=== PATIENT | female | born 1945 | race Caucasian/White ===

== ENCOUNTER 2017-06-07 11:46 | Inpatient (IN) | payer MEDICARE, MEDICAID ==
[2017-06-07 12:13] LABS: PTT 29.5 SEC (22.9-36.1); Prothrombin Time 13.5 SEC (12.0-14.7)
[2017-06-07 12:29] LABS: ALT (SGPT) Less than 7 U/L (8-55); AST (SGOT) 27 U/L (5-34); Albumin 4.1 g/dL (3.4-4.8); Alkaline Phosphatase 69 U/L (40-150); Anion Gap 16 mmol/L (10-20); BUN (Urea Nitrogen) 20 mg/dL (9.8-20.1); Bilirubin, Total 0.8 mg/dL (0.2-1.2); CK (CPK) 134 U/L (29-168); Calc. Creatinine Clearance 0 mL/min (70-130); Calcium 9.7 mg/dL (7.8-10.44); Carbon Dioxide 24 mmol/L (23-31); Chloride 103 mmol/L (98-107); Estimated GFR-MDRD 37; Globulin 3.2 g/dL (2.4-3.5); Glucose 120 mg/dL (83-110); Potassium 4.1 mmol/L (3.5-5.1); Protein, Total 7.3 g/dL (6.0-8.3); Sodium 139 mmol/L (136-145)
[2017-06-07 12:32] LABS: CKMB 3.3 ng/mL (0-6.6)
[2017-06-07 12:44] LABS: Troponin I 3.701 ng/mL (< 0.028)
[2017-06-07 12:59] LABS: #Lymphocytes 1.9 thou/uL (1.20-3.40); #Monocytes 0.4 thou/uL (0.11-0.59); #Neutrophils 3.9 thou/uL (1.40-6.50); %Basophils 0.6 % (0.0-1.0); %Eosinophils 0.4 % (0.0-10.0); %Lymphocytes 29.7 % (21.0-51.0); %Monocytes 6.8 % (0.0-10.0); %Neutrophils 62.6 % (42.0-75.0); Hemoglobin 14.1 g/dL (12.0-16.0); Mean Corpuscular HGB CONC 31.4 g/dL (32.0-36.0); Mean Corpuscular Hemoglobin 28.2 pg (27.0-31.0); Mean Corpuscular Volume 90.1 fl (81.0-99.0); Mean Platelet Volume 9.4 fL (7.4-10.4); Platelet Count 197 thou/uL (130-400); RBC Distribution Width 12.7 % (11.5-14.5); Red Blood Cell (RBC) Count 4.99 mill/uL (4.20-5.40); White Blood Cell (WBC) Count 6.3 thou/uL (4.8-10.8)
[2017-06-07] MEDS ORDERED: hydrALAZINE 20 MG/ML VIAL ONE (13:30)
--- NOTE | 2017-06-07 14:26 | CT ---
CT OF THE BRAIN WITHOUT CONTRAST: COMPARISON: 05/10/16. HISTORY: Diffuse headache for 3 days and altered mental status. TECHNIQUE: Multiple contiguous axial images were obtained in a CT of the brain without contrast. Coronal reform ats were performed. FINDINGS: There are scattered hypodensities in the subcortical and periventricular white matter. There is an a hernan demonstrating loss of wyman-white matter differentiation in the posterior right frontal lobe. Thi s is in the MCA distribution and likely represents an evolving infarction in the right MCA distributi on. There is no evidence of hydrocephalus, intracranial hemorrhage, or extraaxial fluid collection. The calvarium and overlying soft tissues were unremarkable. There is fluid in the left maxillary sin us. The mastoid air cells are well aerated. IMPRESSION: Subacute evolving infarction in the right middle cerebral artery distribution. This was not seen on the prior CT and likely has occurred in the interim. POS: [facility]
--- NOTE | 2017-06-07 14:34 | RAD ---
CHEST 2 VIEWS: HISTORY: Cough. COMPARISON: 05/22/16. FINDINGS: Cardiac silhouette and pulmonary vasculature are unremarkable. Mediastinum is midline with aortic ca lcification. There is no lobar consolidation, pneumothorax, or pleural fluid evident. Degenerative changes involving the shoulders and thoracic spine. IMPRESSION: 1. Atherosclerosis. 2. No active cardiopulmonary abnormalities are otherwise demonstrated. POS: [facility]
[2017-06-07] MEDS ORDERED: Aspirin 325 MG TAB ONE (14:49)
[2017-06-07] MEDS ORDERED: Ondansetron HCl/PF 4 MG/2 ML Vial IVP PRN (16:08)
[2017-06-07 16:13] LABS: Critical Call Chem Troponin I RESULT DECREASING; Troponin I 3.368 ng/mL (< 0.028)
[2017-06-07] MEDS ORDERED: Insulin Regular 300 UNITS/3 ML VIAL SC PRN (16:35)
[2017-06-07] MEDS ORDERED: Dextrose 50% Abboject 50 ML SYRINGE SLOW IVP PRN (16:35)
[2017-06-07] MEDS ORDERED: Dextrose 5% in Water 1,000 ML IV PRN (16:35)
[2017-06-07] MEDS ORDERED: traMADol HCl 50 MG TAB PO PRN (16:37)
[2017-06-07] MEDS ORDERED: Acetaminophen 325 MG TAB PO PRN (16:37)
[2017-06-07] MEDS ORDERED: Ondansetron HCl/PF 4 MG/2 ML Vial ONE (16:38)
[2017-06-07 18:03] VITALS: BMI 28.5
[2017-06-07] MEDS ORDERED: Acetaminophen 650 MG Suppository PR PRN (18:17)
--- NOTE | 2017-06-07 18:23 | PDOC.EVN ---
Event Note - Event Note Event Note: Please see original H&P Since then, a "code green" has been called aka rapid response in ER due to patient slurred speech and progressive weakness of L side. Also, patient with temp 101.3, SBP >185 R MCA known on admission repeat CT head stat for concern of conversion neuro checks Q1H x3 labetalol for hypertension given cardiac hx of CHF sepsis initiate sepsis protocol could also be febrile from stroke check blood cx, urine cx, CXR, lactic acid d/w patient's bedside nursing staff
--- NOTE | 2017-06-07 18:41 | CT ---
CT HEAD WITHOUT CONTRAST 06/07/17 Multiple axial tomograms are obtained through the head without IV enhancement. HISTORY: Stroke. Comparison made to the exam today at 1:11 p.m. There is cytotoxic edema in the right cerebral hemisphere involving the right posterior frontal and a nterior parietal lobe cortex and extending into the right frontal cortex in the parasylvian region. F indings indicate a large right MCA territory infarct which is evolving. There is no evidence of hemor rhage. Severe chronic ischemic white matter changes seen with old lacunar infarcts in the right basal gangli a. These findings were present on the exam of 05/10/16. There has been no significant change since the exam earlier today at 1:11 p.m. IMPRESSION: Large evolving right middle cerebral artery distribution infarct without significant change from the exam earlier today. No evidence of hemorrhage. Findings discussed with Dr. Zhao. POS: [facility]
[2017-06-07 18:44] LABS: Critical Call Chem Troponin I RESULT DECREASING; Troponin I 3.037 ng/mL (< 0.028)
--- NOTE | 2017-06-07 18:53 | RAD ---
PORTABLE CHEST: 06/07/17 HISTORY: Sepsis. Mental status change. COMPARISON: 06/07/17. FINDINGS/IMPRESSION: The lungs remain clear. No evidence of infiltrate. No significant change from the two view exam taken at 2:18 p.m. earlier today. POS: [facility]
[2017-06-07 20:05] LABS: #Lymphocytes 1.5 thou/uL (1.20-3.40); #Monocytes 0.6 thou/uL (0.11-0.59); #Neutrophils 5.9 thou/uL (1.40-6.50); %Basophils 0.4 % (0.0-1.0); %Eosinophils 0.4 % (0.0-10.0); %Lymphocytes 18.6 % (21.0-51.0); %Monocytes 7.3 % (0.0-10.0); %Neutrophils 73.2 % (42.0-75.0); Hemoglobin 14.1 g/dL (12.0-16.0); Mean Corpuscular Hemoglobin 28.8 pg (27.0-31.0); Mean Platelet Volume 10.9 fL (7.4-10.4); Platelet Count 167 thou/uL (130-400); RBC Distribution Width 12.6 % (11.5-14.5); Red Blood Cell (RBC) Count 4.88 mill/uL (4.20-5.40); White Blood Cell (WBC) Count 8.1 thou/uL (4.8-10.8)
[2017-06-07 20:17] LABS: ALT (SGPT) Less than 7 U/L (8-55); AST (SGOT) 24 U/L (5-34); Albumin 3.9 g/dL (3.4-4.8); Alkaline Phosphatase 67 U/L (40-150); Anion Gap 17 mmol/L (10-20); BUN (Urea Nitrogen) 19 mg/dL (9.8-20.1); Bilirubin, Total 0.7 mg/dL (0.2-1.2); Calc. Creatinine Clearance 53 mL/min (70-130); Calcium 9.4 mg/dL (7.8-10.44); Carbon Dioxide 23 mmol/L (23-31); Chloride 104 mmol/L (98-107); Estimated GFR-MDRD 44; Glucose 89 mg/dL (83-110); Potassium 3.6 mmol/L (3.5-5.1); Protein, Total 6.9 g/dL (6.0-8.3); Sodium 140 mmol/L (136-145)
[2017-06-07 20:22] LABS: CKMB 2.8 ng/mL (0-6.6)
--- NOTE | 2017-06-07 20:24 | HP ---
PRIMARY CARE PROVIDER: Currently unknown. Patient does have an outpatient primary care provider, nima t is unable to provide the name of that individual at this point in time CHIEF COMPLAINT: Slurred speech with left-sided weakness. HISTORY OF PRESENT ILLNESS: A 71-year-old female with a history of carotid endarterectomy, CHF, card iovascular disease, TIA, active tobacco use, who presented with approximately 2 days of left-sided fa cial droop, slurred speech, accompanied by left-sided weakness. It is unclear whether or not she is having some word recalling difficulty as her responses are very much slowed and occasionally she does not respond to directed questions. At this point in time, she does not have any family members with her at bedside. Last known seen well as documented by the emergency department as 2 days prior to a dmission, so it is assumed that her stroke may have had that long of duration but unable to confirm. REVIEW OF SYSTEMS: As per above limited ability for recall, but what the patient is able to answer i ncludes the following: General: Denies any fevers or chills. Gastrointestinal: Denies any difficulty with nausea, vomitin g or diarrhea. Genitourinary: Denies any dysuria, change in urinary frequency, quantity or quality. Respiratory: Denies any upper respiratory type infectious type symptoms, endorses a longstanding c ough which she states has been ongoing for several years and she suspects this is related to her smok ing use. Cardiovascular: Denies any chest pain, chest pressure, left-sided arm numbness or tingling . HEENT: Slurred speech as above, question of word finding difficulty, endorses having a headache a t this point in time, states that she has a significant "rug burn" on her nose due to falling several days ago when trying to move a heavy table. Musculoskeletal: Endorses left-sided weakness as per H PI above. PAST MEDICAL HISTORY: What the patient is able to recall includes the following, 1. History of CHF. 2. Insulin-dependent diabetes. 3. Hypertension. 4. Hyperlipidemia. 5. TIA. PAST SURGICAL HISTORY: 1. Status post cardiac catheterization, unknown result. 2. Status post hysterectomy. 3. Status post carotid endarterectomy. HOME MEDICATIONS: Please see the EMR for a full list. The patient is unable to recall her medicatio ns for memory, but denies any recent changes in the last month to this list. The patient denies any over the counter, supplements, herbal additives to her medication regimen. FAMILY HISTORY: Significant for both stroke and cardiovascular disease in her mother. The patient d enies any other known family members with either stroke or cardiovascular disease. SOCIAL HISTORY: The patient states that she wishes to quit and states that she will be quitting smok ing as of today. Otherwise, the patient has been smoking approximately half a pack a day to a pack a day for several decades. Denies any alcohol use, denies any illicit drug use. States that her yolanda Mullen would be her medical decision maker if she is unable to make her own medical decisions and the patient indicates she wishes to be FULL CODE at this point in time. PHYSICAL EXAMINATION: VITAL SIGNS: Most recent, blood pressure 182/108, pulse of 82, respirations 20, temperature of 98.9, satting 95% on room air. GENERAL: The patient is awake, alert, conversant with some limitations as above, but is oriented to self, place, and time. HEENT: Slightly dry mucous membranes. Pupils equal, ocular motions are intact. Has a significant a brasion across the bridge of her nose encompassing approximately a third of the integumentary surface area of her nose sparing her nasolabial folds. CARDIOVASCULAR: S1, S2. No murmurs, rubs or gallops. Pulses 2+ bilateral upper extremity. No nyasia ing pedal edema. RESPIRATORY: Reasonable air movement. No wheezes, rales or rhonchi. LUNGS: Clear to auscultation bilaterally, otherwise. ABDOMEN: Positive bowel sounds, soft, nontender to palpation. MUSCULOSKELETAL: Currently, moving all 4 extremities, all extremities 5/5 with the exception of left upper extremity 4/5 strength. LABORATORY DATA AND IMAGIN. WBC 6.3, hemoglobin 14.1, hematocrit 44.9, platelets 197. 2. INR 1.0, PTT 29.5, PT 13.5. 3. Sodium 139, potassium 4.1, chloride 103, bicarb 24, BUN 20, creatinine 1.3, glucose 120, calcium 9.7, total bilirubin 0.8, AST 27, ALT less than 7, alkaline phosphatase 69. Creatine kinase 132, tro ponin 3.7, total protein 7.3, albumin 4.1. IMAGIN. CT of the brain without contrast "subacute evolving infarction in the right middle cerebral arter y distribution. This was not seen on prior CT and likely has occurred in the interim." Prior CT com cesaron is from 05/10/2016. 2. Chest x-ray. Impression, "atherosclerosis. No active cardiopulmonary abnormalities are otherwis e demonstrated." ASSESSMENT AND PLAN: A 71-year-old female who presents with slurred speech and left-sided weakness. 1. Stroke with right middle cerebral artery infarct, likely contributing to her current symptomatic presentation. Neurology has been consulted from the emergency department. Check hemoglobin A1c, fas ting, check fasting lipid panel. The patient is outside of window for any thrombotic therapy. Physi christiano therapy, occupational therapy, speech therapy consultations. 2. Elevated troponin with concern for non ST elevated myocardial infarction. Recheck EKG in the [facility]. I appreciate Cardiology consultation from the Emergency Department. No further anticoagulatio n beyond aspirin at this point in time. We will continue with aspirin and blood pressure control as per above. See risk factor evaluation as noted above. 3. Active tobacco use. Cessation counseling provided. The patient is to contemplate with a plan fo r cessation at this point in time. 4. Hypertension. Closely monitor mild degree of permissive hypertension. Resume home medications a s tolerated and as needed. 5. Insulin-dependent diabetes. Check hemoglobin A1c. Given the patient's n.p.o. status, we will in itiate sliding scale insulin and closely monitor. When the patient is able to tolerate and cleared t o tolerate a p.o. diet and she may have a diabetic cardiac diet. 6. Admit the patient inpatient stroke with remote monitoring and telemetry. Patient is FULL CODE as described above.
[2017-06-07 20:31] LABS: PTT 27.8 SEC (22.9-36.1); Prothrombin Time 13.8 SEC (12.0-14.7)
[2017-06-07] MEDS: Famotidine/PF 20 mg/2ml Vial SLOW IVP SCH (20:39)
[2017-06-07] MEDS: Atorvastatin Calcium 20 MG TAB PO SCH (20:43)
[2017-06-07] MEDS: Metoprolol Tartrate 50 MG TAB PO SCH (20:43)
[2017-06-07] MEDS: Sodium Chloride 0.9% 1,000 ML IV SCH (22:06)
[2017-06-07 22:50] LABS: Lactic Acid 0.9 mmol/L (0.5-2.2)
--- NOTE | 2017-06-07 23:34 | CON ---
DATE OF CONSULTATION: 06/07/2017 CHIEF COMPLAINT: Stroke. HISTORY OF PRESENT ILLNESS: The patient's history was obtained from ER physician and family members. The patient's son and [id number]-ykf were present in the room. The patient was last seen by family members or anyone at the facility about 2 days ago. Last night, the patient's daughter was talking to her on the phone and thought her speech was slurred and she informed the son and auerssrf-ai-lav, and the son went to check on her this morning and found her to have severe drooling, droopiness of the left side of the face and weakness of the left arm and leg and she was unable to move her left arm and leg. By the time she arrived in the ER, she was able to move her left side and an NIH stroke scale was noted at 6 and subsequently, she was transferred to the floor and during that transfer, she developed worsening of her weakness, mental status and had NIH stroke scale of 16 per the nurse and she was sent for a stat CT head and I requested a CT angio; however, this study could not be performed due to her creatinine levels. The patient returned back to the room and she had definite improvement of her left-sided weakness and was also conversant and able to talk. The patient was last noted normal about 2 days ago. At this time , she still has left-sided weakness. PREVIOUS MEDICAL HISTORY: The patient has dementia and according to her [id number], she sometimes has hallucinations if her medications are not right. She was last admitted to this hospital in 2016. Previous medical history also includes carotid artery disease and she had prior angiogram in 2012 to look at her cerebral arterial circulation. The patient also has congestive heart failure. MEDICATIONS: Reviewed in the chart. She is on aspirin, atorvastatin, famotidine, glucagon as needed, insulin, labetalol as needed, metoprolol 50 mg b.i.d. and patient is on donepezil 5 mg per day, Cymbalta 30 mg per day, vitamin D2, furosemide 40 mg per day and Arava 20 mg per day, lisinopril 20 mg per day and she is on methylprednisolone 4 mg per day, quetiapine 50 mg b.i.d., risedronate 35 mg every 7 days, tramadol 50 mg p.r.n. and amlodipine 10 mg once daily at home. PREVIOUS SURGICAL HISTORY: She had bilateral carotid endarterectomies a few years ago according to the family and she also had an angiogram and they are not aware of any other surgeries. SOCIAL HISTORY: She lives in an independent facility and is self caring and managing by herself and is fiercely independent. The patient is a chronic smoker and no alcohol. FAMILY HISTORY: Her mother had strokes and also had dementia. The patient is not in touch with other family members, therefore full details are not known. REVIEW OF SYSTEMS: Pulmonary: Normal. No shortness of breath or cough. Gastrointestinal: No constipation or diarrhea. Genitourinary: No bladder symptoms. Neurologic: Positive for weakness and drooling and also positive for dementia. Cardiac: Positive for heart failure. Endocrine: Positive for diabetes. ALLERGIES: She is allergic to PENICILLIN and SULFA DRUGS. PHYSICAL EXAMINATION: VITAL SIGNS: Her blood pressure is 142/86, temperature is 101.3, pulse 98 and respiratory rate 16. GENERAL APPEARANCE: A pleasant lady with skin cancer on her nose. CHEST: Clear vesicular breathing. CARDIOVASCULAR: S1 and S2 heard. No murmurs. Carotids clear. ABDOMEN: Soft. NEUROLOGIC: She has some high intellectual function. She sometimes does not answer questions and needs to be redirected whether this is due to stress of hospitalization or just sleepiness, it is unclear to me and she is appropriate with her answers and is able to follow commands. Cranial nerves II-XII normal except for left facial droop. Normal extraocular movements, normal sensation of face bilaterally and facial droop with left upper motor neuron weakness on the left side and she also has normal extraocular movements. Fundus exam normal. Tongue midline, no atrophy noted. Palate not feasible to examination. Hearing is normal. Motor: Muscle groups tested, deltoid, biceps, triceps, wrist extension and flexion, finger extension and flexion bilaterally and she has strength of 5/5 throughout on the right side and 3/5 in the left upper as well as lower extremities. Left lower extremity is more 3+ to 4/5 in the proximal groups. Distally, she is at 2/5. Ankle dorsiflexion was impaired. In the left upper extremity, she had a strength of 3/5. Cerebellar: Normal [id number]. Sensory: Normal touch, pinprick, proprioception. It is not a reliable assessment for vibration sense and gait not tested. LABORATORY RESULTS: White count 6.3, hemoglobin 14.1, hematocrit 44.9 and platelets 197. Chemistries: Lactic acid 2.5, sodium 139, potassium 4.1, chloride 103, carbon dioxide 24, BUN 20, creatinine 1.39, glucose 120, ALT less than 7. Troponin I 3.73, 3.368 and 3.037. INR is 1.0, PT 13.58 and APTT 29.5. IMAGING DATA: A CT scan of the head was read and she has large evolving right middle cerebral artery distribution infarct without significant change from the exam earlier today and she has some cytotoxic edema in the right cerebral hemisphere involving the right posterior frontal and anterior parietal lobe cortex, extending into the right frontal cortex in the perisylvian region. IMPRESSION: The patient is a 71-year-old lady with congestive heart failure, prior carotid endarterectomy and she also has problems with bilateral lacunar infarcts and she presents with a history of left-sided face, arm and leg weakness. Duration could be anywhere between 2 days to 12 hours at presentation ; therefore, she is not a candidate for TPA. Her examination shows left face, arm and leg weakness. There was some fluctuation in her neurological status. Therefore, code was called, but there is no change in her imaging and she also has no changes on the CT scan and she also had improvement of her clinical exam when I saw her within the timeframe after SENIOR RESEARCH ASSOCIATE was called. Clinically, this diagnosis is most consistent with cerebrovascular accident in the right MCA territory at least 12 hours duration. Likely underlying risk factors are new onset A.Fib, Congestive Heart failure, DM, and current FL with possible embolic stroke to right MCA. RECOMMENDATIONS: Please complete stroke workup including echocardiogram and I spoke with the radiologist and we will obtain an MRI brain along with MR angio in order to assess her intracerebral vasculature and confirm that, so we can obtain an understanding of her intracranial vasculature. She already had a carotid endarterectomy in the past. Also, consider workup for any infection and Cardiology consultation for directions regarding her atrial fibrillation. At this time, she is not a candidate for IV anticoagulants due to the degree of her CVA and risk of hemorrhage. I will see her again tomorrow. [facility] HOSPITALGretchen
[2017-06-08] MEDS: Sodium Chloride 0.9% 1,000 ML IV SCH ×2 (05:17→16:52)
[2017-06-08 05:34] LABS: #Monocytes 0.6 thou/uL (0.11-0.59); #Neutrophils 3.8 thou/uL (1.40-6.50); %Basophils 0.7 % (0.0-1.0); %Eosinophils 0.4 % (0.0-10.0); %Lymphocytes 30.2 % (21.0-51.0); %Neutrophils 58.8 % (42.0-75.0); Hemoglobin 12.6 g/dL (12.0-16.0); Mean Corpuscular HGB CONC 32.3 g/dL (32.0-36.0); Mean Corpuscular Hemoglobin 29.4 pg (27.0-31.0); Mean Corpuscular Volume 91.1 fl (81.0-99.0); Mean Platelet Volume 9.2 fL (7.4-10.4); Platelet Count 160 thou/uL (130-400); RBC Distribution Width 12.6 % (11.5-14.5); White Blood Cell (WBC) Count 6.5 thou/uL (4.8-10.8)
[2017-06-08 05:41] LABS: Hemoglobin A1c 4.9 % (4.0-6.0)
[2017-06-08] MEDS: Labetalol HCl 100 MG/20 ML VIAL SLOW IVP PRN ×2 (05:47→21:35)
[2017-06-08 05:49] LABS: Anion Gap 14 mmol/L (10-20); BUN (Urea Nitrogen) 16 mg/dL (9.8-20.1); Calc. Creatinine Clearance 57 mL/min (70-130); Calcium 8.8 mg/dL (7.8-10.44); Carbon Dioxide 21 mmol/L (23-31); Cardiac Risk 3.5 (Less than 4.5); Chloride 109 mmol/L (98-107); Cholesterol 154 mg/dl (< 200 Desired); Estimated GFR-MDRD 48; Glucose 87 mg/dL (83-110); HDL Cholesterol 44 mg/dL (>60 Neg Risk); LDL Cholesterol, Calculated 97 mg/dL; Potassium 3.9 mmol/L (3.5-5.1); Sodium 140 mmol/L (136-145); Triglycerides 67 mg/dL (Less than 150)
[2017-06-08] MEDS ORDERED: FLU VACC TS2017-18 (>65YR) 0.5 ML SYRINGE IM ONE (09:00)
[2017-06-08] MEDS ORDERED: Prevnar 13-Val Conj/PF 0.5 ML SYRINGE IM ONE (09:00)
[2017-06-08] MEDS: Aspirin 300 MG Suppository PR SCH (09:05)
[2017-06-08 09:27] LABS: Bilirubin Negative (Negative); Blood, Urine Negative (Negative); Clarity CLOUDY (Clear); Glucose, Urine (Dipstick) Negative (Negative); Leukocyte Moderate (Negative); Nitrite Positive (Negative); Protein, Urine (Dipstick) 30 mg/dL (Neg-Trace); Specific Gravity, Urine 1.018 (1.002-1.036); Urobilinogen 0.2 mg/dL (0.2-1.0)
[2017-06-08 09:30] LABS: Bacteria/HPF 4+ HPF (None Seen); Hyaline Casts/LPF 0-3 HYALINE CAST LPF (0-3 Hyaline); Pathc Cast-AUWi Flag 0.13 (0-2.49); Squamous Epithelial 0-3 HPF (0-3)
[2017-06-08] MEDS: Metoprolol Tartrate 50 MG TAB PO SCH ×2 (10:07→21:37)
--- NOTE | 2017-06-08 11:14 | MRI ---
MRI OF THE BRAIN WITHOUT CONTRAST: COMPARISON: CT of the brain 06/07/17 and MRI of the brain 05/03/15. HISTORY: Stroke. The patient cannot move entire left side of the body. TECHNIQUE: Multiplanar, multisequence MRI images were obtained in the brain without contrast. FINDINGS: There is abnormal high FLAIR signal and restricted diffusion within the right frontal, temporal, and parietal lobes in an MCA distribution. This is consistent with a large MCA distribution infarction. No midline shift or downward herniation is seen. There is no evidence of hydrocephalus, intracranial hemorrhage, or extraaxial fluid collection. The expected flow voids are present. There are scattered foci of high FLAIR signal in the subcortical an d periventricular white matter likely secondary to small vessel ischemic disease. The corpus callosum, pituitary, and craniocervical junction are unremarkable. IMPRESSION: 1. Acute to subacute infarction of the right middle cerebral artery distribution. 2. Small vessel ischemic disease. POS: [facility]
--- NOTE | 2017-06-08 11:32 | MRI ---
MRA OF THE HEAD WITHOUT CONTRAST: COMPARISON: 01/26/[address] of the brain 06/07/17. HISTORY: Right MCA distribution infarction. TECHNIQUE: An MRA was performed of the brain without contrast using 3D [id number]-[id number] imaging. FINDINGS: The bilateral intracranial internal carotid arteries are normal in caliber. The anterior cerebral ar teries and left middle cerebral artery are normal in appearance. There is attenuation of flow in the right MCA distribution. The proximal aspect of the right middle cerebral artery has normal flow, bu t there is only 1 vessel coursing superficially in the right MCA distribution past the M2 segment. N o flow is seen in the other branches in the right middle cerebral artery. A left vertebral artery is visualized. The right vertebral artery is not definitely seen. The poste rior cerebral arteries and cerebellar arteries are patent. There is a left posterior communicating a rtery. There is no evidence of aneurysmal dilatation, focal stenosis, or occlusion in the posterior circulation. IMPRESSION: Occlusion of the right middle cerebral artery in the M2 segment. POS: [facility]
--- NOTE | 2017-06-08 11:43 | MRI ---
MRA OF THE NECK WITHOUT CONTRAST: HISTORY: Right MCA distribution infarction. TECHNIQUE: An MRA of the neck was performed without contrast using 2D [id number] imaging. Three-D rotation reformats were performed. FINDINGS: Both common carotid arteries are normal in caliber without obvious irregularity to suggest atheroscle rotic disease. Evaluation is limited on this exam. The bilateral internal carotid arteries are salcedo nt. There is mild irregularity just distal to both internal carotid artery bifurcations. This may r epresent atherosclerotic disease or be artifactual and secondary to stair-step artifact. If these ar e areas of stenoses, the estimated stenosis would be less than 50% per NASCET criteria bilaterally. The right vertebral artery is seen proximally. The left vertebral artery cannot be seen proximally. However, both vertebral arteries are seen near the skull base. The signal in the vertebral arteries at the skull base both being present suggests that the flow is still in an antegrade direction rathe r than retrograde. IMPRESSION: 1. No significant stenosis of the internal carotid arteries per NASCET criteria. 2. Nonvisualization of the mid portion of the left vertebral artery is nonspecific. The flow in the cranial aspect of the left vertebral artery is still antegrade and this may simply represent either artifact or an area of high-grade stenosis. POS: [facility]
--- NOTE | 2017-06-08 12:12 | PRG ---
DATE OF SERVICE: 06/08/2017 CHIEF COMPLAINT: Acute stroke with left hemiparesis. INTERVAL HISTORY: The patient has been in the MRI this morning. Since last night, the patient's family reports she is stable and has been somewhat tired. The patient is currently on ciprofloxacin IV. She is still having weakness of her left UL. LABORATORY RESULTS AND IMAGING: White count 6.5, hemoglobin 12.6, hematocrit 39.2, platelets 160. PT 13.8, INR 1.0, PTT 27.8. Sodium 140, potassium 3.9, chloride 109, bicarbonate 21, BUN 16, creatinine 1.11, hemoglobin A1c 4.9, calcium 8.8. Cholesterol is 154, triglyceride 67, LDL 97, HDL 44. Heart disease risk ratio 3.5. MRI reports are currently pending at the time of this dictation. PHYSICAL EXAMINATION: VITAL SIGNS: Blood pressure is 202/125, pulse is 106, temperature 98.5 this morning. GENERAL: Patient is alert, awake, and comfortable, but tends to sleep. CHEST: Clear vesicular breathing. CARDIOVASCULAR: S1, S2 heard, no murmurs. ABDOMEN: Soft. NEUROLOGIC: Higher intellectual functions. She is awake and is oriented to place and person and time. Cranial nerves: She has normal extraocular movements, left facial droop. Motor examination: Bulk normal, tone normal, strength 5/5 on the right side and decreased strength in the left upper extremity at 3+/5, left lower extremity at 3/5 in both proximal and distal segments. Gait not tested. Cerebellar: Normal [id number] on the right side. IMPRESSION: Patient is a 71-year-old lady with sudden onset right middle cerebral artery cerebrovascular accident. At this time, she is having suspected infection and is on contact isolation. Her brain MRI and MR angio were completed. MRI of the brain report was available, shows acute to subacute infarction of the right middle cerebral artery distribution and small vessel ischemic changes bilaterally and then on the MR angiogram, she had occlusion of right middle cerebral artery in the M2 segment and bilateral ICAs are normal in caliber, normal appearance of anterior cerebral arteries and middle cerebral artery. There is attenuation of slow right middle cerebral artery distribution. Proximal right middle cerebral artery has normal slow, but there is only one vessel in the right middle cerebral artery distribution passed the M2 segment. No flow was seen in other branches of the right middle cerebral artery. DIAGNOSIS The patient has right middle cerebral artery occlusion due to acute cerebrovascular accident. I suspect this is an embolic occlusion based on her cardiac history and she most likely has an embolus due to new onset atrial fibrillation, congestive heart failure and recurrent myocardial infarction. RECOMMENDATIONS: Please consult Cardiology for direction regarding atrial fibrillation and management. She is stable for neurologically at this time. Please start PT and OT and consider rehab placement. Please complete her stroke workup including echocardiogram. Please call Neurology rehabilitation construction specialist if you have any further questions or concerns about this patient. CAROLE
--- NOTE | 2017-06-08 17:13 | CON ---
DATE OF CONSULTATION: 06/08/2017 PRIMARY SLINGER SEQUINS: Dr. Zaid Thapa. REASON FOR CONSULTATION: Elevated troponins. HISTORY OF PRESENT ILLNESS: Ms. Mckeon is a 71-year-old white female who is a patient of Dr. Thapa who comes to the hospital for evaluation of stroke-like symptoms. She was diagnosed with a right mi ddle cerebral artery infarct, acute and she was admitted to the stroke unit. During her initial eval uation, troponins were drawn, were mildly elevated, so Cardiology is being consulted for further andrew mmendations on this. On my evaluation, Ms. Mckeon is verbal. She is able to converse, although she i s a little bit slow to respond, but she is making sense with her answers. She denies any chest pain, tightness, pressure. No shortness of breath. PAST MEDICAL HISTORY: 1. History of diastolic heart failure. 2. Type 2 diabetes, insulin-dependent. 3. Hypertension. 4. Hyperlipidemia. 5. TIA/strokes in the past. PAST SURGICAL HISTORY: 1. Cardiac catheterization. 2. Hysterectomy. 3. Carotid endarterectomy. OUTPATIENT MEDICATIONS: 1. Vitamin D3. 2. Metoprolol 50 mg b.i.d. 3. Lasix 20 mg a day. 4. Tylenol #3 p.r.n. 5. Methylprednisolone 2 mg a day. 6. Zocor 40 mg at bedtime. 7. Risedronate. 8. Seroquel 100 mg a day. 9. Leflunomide 20 mg a day. 10. Donepezil 5 mg at bedtime. 11. Aspirin 81 a day. ALLERGIES: PENICILLIN and SULFA DRUGS. SOCIAL HISTORY: She continues to smoke, but she wishes to quit half pack a day for several years. N o alcohol, no drug use. FAMILY HISTORY: Stroke and heart disease in mother. REVIEW OF SYSTEMS: A 12-point review of systems was done, is otherwise negative unless stated in the history of present illness, however, it maybe a little on arrival, she is slow to answer and respons e no to most things. PHYSICAL EXAMINATION: VITAL SIGNS: Temperature 98.7, pulse 70, respiratory rate 20, satting 91% on room air, blood pressur e 180/88. GENERAL: Awake, alert. She is oriented to person, place, difficulty with time, in no distress. HEENT: Normocephalic. She has a laceration on her nose. NECK: Supple. LUNGS: Clear. CARDIOVASCULAR: S1, S2, no S3 or S4. There is a grade 2/6 systolic murmur at right upper sternal finn rder. ABDOMEN: Soft. Positive bowel sounds. EXTREMITIES: No edema. SKIN: Warm and dry. LABORATORY WORK: Reviewed. CBC, coag, CMP and UA were reviewed. UA seems positive for nitrites, pr obably has a UTI as well. EKG is reviewed. MRI of the brain as well as CT of the brain were reviewed. She is an MCA stroke. ASSESSMENT AND PLAN: 1. Non-ST elevation myocardial infarction: Likely demand ischemia from her acute cerebrovascular ac cident. 2. Acute middle cerebral artery stroke distribution. Per primary team. 3. Hypertension: Permissive hypertension at this time due to acute and subacute stroke. Thank you for letting us to participate in the care of your patient. Dr. Thapa, primary Cardiolog y will follow up in the morning.
--- NOTE | 2017-06-08 19:59 | PDOC.PN ---
- Subjective Encounter Start Date: 06/08/17 Encounter Start Time: 15:00 Subjective: nsg notes rev, john ovn, son @ bedside, pt still has -: slurred speech and is requesting a hamburger. no new c/o -: speech therapy @ bedside - Objective Vital Signs & Weight: Vital Signs (12 hours) Temp Pulse Pulse Resp BP BP Pulse Ox 06/08/17 16:41 117/73 06/08/17 15:50 98.7 F 71 20 188/88 H 91 L 06/08/17 14:45 72 188/88 H 06/08/17 12:00 97.5 F L 65 20 179/82 H 90 L 06/08/17 09:12 148/93 H 06/08/17 08:00 98.5 F 61 20 184/77 H 94 L Weight Weight 177 lb 3.2 oz I&O: 06/07/17 06/08/17 06/09/17 06:59 06:59 06:59 Intake Total 875 Balance 875 Result Diagrams: 06/08/17 05:03 06/08/17 05:03 Additional Labs: Accuchecks 06/08/17 06/08/17 06/08/17 16:53 11:11 00:15 POC Glucose 77 95 102 Phys Exam - Physical Examination Constitutional: NAD HEENT: PERRLA, moist MMs Respiratory: no wheezing, no rales, no rhonchi, clear to auscultation bilateral Cardiovascular: RRR, no significant murmur, no rub Gastrointestinal: soft, positive bowel sounds Musculoskeletal: no edema, pulses present Dx/Plan (1) Acute right MCA stroke Code(s): I63.511 - CEREB INFRC D/T UNSP OCCLS OR STENOS OF RIGHT MID CEREB ART Status: Acute Comment: Appreciate neurology c/s s/p MRI, pending MRA, ECHO continue with ST, PT, OT - d/w ST currently not safe for oral intake, will check barium swallow tomorrow as well ASA, statin, risk factor evaluation and modification (2) NSTEMI (non-ST elevated myocardial infarction) Code(s): I21.4 - NON-ST ELEVATION (NSTEMI) MYOCARDIAL INFARCTION Status: Acute Comment: appreciate Cardiology c/s hemodynamically stable ECHO, ASA only at this point in time (3) Hypertension Code(s): I10 - ESSENTIAL (PRIMARY) HYPERTENSION Status: Acute Comment: closely monitor prn labetalol (4) UTI (lower urinary tract infection) Code(s): N39.0 - URINARY TRACT INFECTION, SITE NOT SPECIFIED Status: Acute Comment: pending UCx results empiric ciprofloxacin - Plan diet: NPO, cont maint IVF activity: as cristopher with PT, OT dvt ppx * . Review of Systems - Medications/Allergies Allergies/Adverse Reactions: Allergies Allergy/AdvReac Type Severity Reaction Status Date / Time Penicillins Allergy Unknown Verified 05/11/16 01:00 Sulfa (Sulfonamide Allergy Unknown Hives Verified 05/11/16 01:00 Antibiotics) Medications: Current Medications Acetaminophen (Tylenol) 650 mg PO Q6H PRN PRN Reason: Headache/Fever or Pain Acetaminophen (Tylenol) 650 mg WA Q4H PRN PRN Reason: Headache/Fever or Pain Last Admin: 06/08/17 09:09 Dose: 650 mg Aspirin (Aspirin) 300 mg [place] DAILY [facility] Last Admin: 06/08/17 09:05 Dose: 300 mg Atorvastatin Calcium (Lipitor) 20 mg PO HS [facility] Last Admin: 06/07/17 20:43 Dose: Not Given Dextrose/Water (Dextrose 50%) 25 gm SLOW IVP PRN PRN PRN Reason: Hypoglycemia Famotidine (Pepcid) 20 mg SLOW IVP QPM [facility] Last Admin: 06/07/17 20:39 Dose: 20 mg Glucagon (Glucagon) 1 mg IM PRN PRN PRN Reason: Hypoglycemia Sodium Chloride (Normal Saline 0.9%) 1,000 mls @ 100 mls/hr IV .Q10H [facility] Last Admin: 06/08/17 16:52 Dose: 1,000 mls Dextrose/Water (D5w) 1,000 mls @ 0 mls/hr IV .Q0M PRN; As Directed PRN Reason: Hypoglycemia Ciprofloxacin/Dextrose 400 mg/ (Device) 200 mls @ 200 mls/hr IVPB 1200,2359 [facility] Last Admin: 06/08/17 12:20 Dose: 200 mls Insulin Human Regular (Humulin R) 0 units SC .MILD SLIDING SCALE PRN PRN Reason: Mild Correctional Scale Labetalol HCl (Normodyne) 10 mg SLOW IVP Q4H PRN PRN Reason: SBP Greater Than 180 Last Admin: 06/08/17 05:47 Dose: 10 mg Metoprolol Tartrate (Lopressor) 50 mg PO BID [facility] Last Admin: 06/08/17 10:07 Dose: Not Given Ondansetron HCl (Zofran) 4 mg IVP Q6H PRN PRN Reason: Nausea/Vomiting Tramadol HCl (Ultram) 50 mg PO Q6H PRN PRN Reason: Pain
[2017-06-08] MEDS: Famotidine/PF 20 mg/2ml Vial SLOW IVP SCH (21:33)
[2017-06-08] MEDS: Atorvastatin Calcium 20 MG TAB PO SCH (21:37)
[2017-06-09] MEDS: Sodium Chloride 0.9% 1,000 ML IV SCH ×3 (05:46→21:09)
[2017-06-09] MEDS: Labetalol HCl 100 MG/20 ML VIAL SLOW IVP PRN ×3 (05:54→23:45)
[2017-06-09] MEDS: Aspirin 300 MG Suppository PR SCH (08:54)
--- NOTE | 2017-06-09 09:08 | PDOC.PN ---
- Subjective Encounter Start Date: 06/09/17 Encounter Start Time: 09:06 Subjective: nsg notes rev, john ovn, pt has been NPO ovn c/o this AM that she feels she -: is having more difficulty with coughing things up than usual (smokers cough -: with clear-white sputum @ baseline) - cough not as strong - Objective Vital Signs & Weight: Vital Signs (12 hours) Temp Pulse Resp BP BP Pulse Ox 06/09/17 07:57 99.0 F 80 18 216/106 H 93 L 06/09/17 06:33 99.0 F 98 18 218/112 H 98 06/09/17 05:54 94 218/112 H 06/08/17 23:11 99 F 73 14 194/91 H 94 L 06/08/17 21:35 71 213/102 H Weight Weight 183 lb 3.2 oz I&O: 06/08/17 06/09/17 06/10/17 06:59 06:59 06:59 Intake Total 2074 Balance 2074 Result Diagrams: 06/10/17 07:50 06/10/17 07:50 Additional Labs: Accuchecks 06/09/17 06/09/17 06/08/17 05:58 00:17 16:53 POC Glucose 89 87 77 06/08/17 11:11 POC Glucose 95 Phys Exam - Physical Examination Constitutional: NAD HEENT: PERRLA, moist MMs, sclera anicteric + slurred speech Respiratory: no wheezing, no rales, no rhonchi, clear to auscultation bilateral Cardiovascular: RRR, no significant murmur, no rub Gastrointestinal: soft, non-tender, no distention, positive bowel sounds Musculoskeletal: no edema, pulses present Neurological: moves all 4 limbs LUE 3-4/5 compared to RUE 5/5, + facial droop, + drooling with cough Psychiatric: normal affect Dx/Plan (1) Acute right MCA stroke Code(s): I63.511 - CEREB INFRC D/T UNSP OCCLS OR STENOS OF RIGHT MID CEREB ART Status: Acute Comment: Appreciate neurology c/s s/p MRI, pending MRA, ECHO continue with ST, PT, OT - adv diet as per ST recs. when able to tolerate sufficient calories, will plan on D/C to inpt rehab ASA, statin, risk factor evaluation and modification (2) NSTEMI (non-ST elevated myocardial infarction) Code(s): I21.4 - NON-ST ELEVATION (NSTEMI) MYOCARDIAL INFARCTION Status: Acute Comment: appreciate Cardiology c/s - type 2 NSTEMI hemodynamically stable ECHO, ASA only at this point in time (3) Hypertension Code(s): I10 - ESSENTIAL (PRIMARY) HYPERTENSION Status: Acute Comment: closely monitor prn labetalol (4) UTI (lower urinary tract infection) Code(s): N39.0 - URINARY TRACT INFECTION, SITE NOT SPECIFIED Status: Acute Comment: pending UCx results empiric ciprofloxacin - Plan cont current plan of care, continue antibiotics, PT/OT, geriatric social worker, speech therapy, out of bed/ambulate * . Review of Systems - Medications/Allergies Allergies/Adverse Reactions: Allergies Allergy/AdvReac Type Severity Reaction Status Date / Time Penicillins Allergy Unknown Verified 05/11/16 01:00 Sulfa (Sulfonamide Allergy Unknown Hives Verified 05/11/16 01:00 Antibiotics) Medications: Current Medications Acetaminophen (Tylenol) 650 mg PO Q6H PRN PRN Reason: Headache/Fever or Pain Acetaminophen (Tylenol) 650 mg NV Q4H PRN PRN Reason: Headache/Fever or Pain Last Admin: 06/08/17 09:09 Dose: 650 mg Aspirin (Aspirin) 300 mg NV DAILY [facility] Last Admin: 06/09/17 08:54 Dose: 300 mg Atorvastatin Calcium (Lipitor) 20 mg PO HS [facility] Last Admin: 06/08/17 21:37 Dose: Not Given Dextrose/Water (Dextrose 50%) 25 gm SLOW IVP PRN PRN PRN Reason: Hypoglycemia Famotidine (Pepcid) 20 mg SLOW IVP QPM [facility] Last Admin: 06/08/17 21:33 Dose: 20 mg Glucagon (Glucagon) 1 mg IM PRN PRN PRN Reason: Hypoglycemia Sodium Chloride (Normal Saline 0.9%) 1,000 mls @ 100 mls/hr IV .Q10H [facility] Last Admin: 06/09/17 05:46 Dose: 1,000 mls Dextrose/Water (D5w) 1,000 mls @ 0 mls/hr IV .Q0M PRN; As Directed PRN Reason: Hypoglycemia Ciprofloxacin/Dextrose 400 mg/ (Device) 200 mls @ 200 mls/hr IVPB 1200,2359 [facility] Last Admin: 06/09/17 00:50 Dose: 200 mls Insulin Human Regular (Humulin R) 0 units SC .MILD SLIDING SCALE PRN PRN Reason: Mild Correctional Scale Labetalol HCl (Normodyne) 10 mg SLOW IVP Q4H PRN PRN Reason: SBP Greater Than 180 Last Admin: 06/09/17 05:54 Dose: 10 mg Metoprolol Tartrate (Lopressor) 50 mg PO BID [facility] Last Admin: 06/08/17 21:37 Dose: Not Given Ondansetron HCl (Zofran) 4 mg IVP Q6H PRN PRN Reason: Nausea/Vomiting Tramadol HCl (Ultram) 50 mg PO Q6H PRN PRN Reason: Pain
[2017-06-09] MEDS: Metoprolol Tartrate 50 MG TAB PO SCH ×3 (09:42→21:01)
--- NOTE | 2017-06-09 14:06 | PQF ---
DATE: 06-09-17 ATTN: DR. MONSTER CARROLL Please exercise your independent, professional judgment in responding to the clarification form. Clinical indicators are provided on the bottom of this form for your review Please check appropriate box(s) to clarify if the following diagnosis has been ruled in our ruled out: SEPSIS (CDI/Coding list diagnosis here) [ x ] Ruled in diagnosis [ ] Continue to treat [ x ] Resolved [ ] Ruled out diagnosis [ ] Other diagnosis [ ] Unable to determine In addition, please specify: Present on Admission (POA): [ ] Yes [ ] No [ x ] Unable to determine For continuity of documentation, please document condition throughout progress notes and discharge summary. Thank You. CLINICAL INDICATORS - SIGNS / SYMPTOMS / LABS EVENT NOTE 06-07-17: SEPSIS, INITIATE SEPSIS PROTOCOL CXR 06-07-17: HISTORY: SEPSIS, MENTAL STATUS CHANGE EVENT NOTE 06-07-17: TEMP 101.3, SBP >185 PULSE: 06-08-17: 106 RISK FACTORS: H&P: HX OF CHF , TIA, DM, HTN, CAD, SMOKER, ADVANCED AGE TREATMENTS: EVENT NOTE : CHECK BLOOD CX, CXR, LACTIC ACID (06-07-17) IVF, CIPRO IV (This form is maintained as a part of the permanent medical record) 2014 [employer]. All Rights Reserved [email or web address] [email or web address] Office: [phone] [facility] HOSPITALGretchen
[2017-06-09] MEDS: cloNIDine 0.1 MG TAB PO PRN (15:29)
--- NOTE | 2017-06-09 19:21 | PRG ---
DATE OF SERVICE: 06/09/2017 SUBJECTIVE: Ms. Mckeon is a pleasant 71-year-old female who presented with an acute onset o f left-sided weakness. She was found to have a right MCA occlusion and MRI showing large right MCA d istribution ischemic infarct. The patient's son was at bedside who reports that there has been some improvement in her mentation as well as swallowing today than it was on day before yesterday. She is also noted to have some improvement in her strength. She does complain of having a mild headache th at is located in the right frontal region. She denies chest pain, palpitation, nausea or vomiting. OBJECTIVE: VITAL SIGNS: Blood pressure of 139/73, pulse of 54, temperature of 98.5, respirations are 20 and O2 sats 94% on room air. GENERAL: A well-developed, well-nourished female in no apparent distress. RESPIRATORY: Clear to auscultation bilaterally. CARDIOVASCULAR: Regular rate and rhythm. NEUROLOGICAL: Mental status: The patient is awake, alert and oriented x1. Speech and language: Mi ldly dysarthric speech noted. Cranial nerves: Pupils are 3 mm and reactive. Visual yi are full to threat. Extraocular muscles are intact. She has a right gaze deviation with the left neglect. She has a left facial droop. Motor exam showed flaccid left upper and left lower extremity. Her str ength in the left upper extremity is 2/5 and strength in the left lower extremity is 2/5. IMAGING STUDIES: MRI brain without contrast was reviewed, which showed a large right MCA distributio n ischemic infarct. MRA head and neck were reviewed. MRA neck showed no extracranial vascular abnor mality. MRA head showed occlusion of the right MCA M2 segment. IMPRESSION: 1. Large right middle cerebral artery distribution ischemic infarct. 2. Left hemiparesis, due to #1. 3. Malignant hypertension. ASSESSMENT AND PLAN: Ms. Mckeon is a pleasant 71-year-old female who presented with an acut e onset left hemiparesis and dysarthria. She is found to have large right MCA distribution ischemic infarct. At this time, I would recommend continuing current medical management. I would recommend m aintaining her blood pressure with a goal of 120-140 systolic. I would recommend switching her of as pirin to Plavix 75 mg daily for secondary stroke prevention. She will need inpatient rehabilitation. I have discussed with the son and explained the findings and upper future treatment plan.
[2017-06-09] MEDS: Famotidine/PF 20 mg/2ml Vial SLOW IVP SCH (20:58)
[2017-06-09] MEDS: Atorvastatin Calcium 20 MG TAB PO SCH (20:58)
[2017-06-10] MEDS: cloNIDine 0.1 MG TAB PO PRN (04:00)
[2017-06-10] MEDS: Sodium Chloride 0.9% 1,000 ML IV SCH (06:06)
[2017-06-10 08:04] LABS: #Eosinphils 0.1 thou/uL (0.0-0.7); #Lymphocytes 1.3 thou/uL (1.20-3.40); #Monocytes 0.6 thou/uL (0.11-0.59); #Neutrophils 3.3 thou/uL (1.40-6.50); %Basophils 0.8 % (0.0-1.0); %Lymphocytes 24.5 % (21.0-51.0); %Monocytes 11.5 % (0.0-10.0); %Neutrophils 62.1 % (42.0-75.0); Hemoglobin 11.1 g/dL (12.0-16.0); Mean Corpuscular HGB CONC 31.8 g/dL (32.0-36.0); Mean Corpuscular Volume 91.3 fl (81.0-99.0); Mean Platelet Volume 9.4 fL (7.4-10.4); Platelet Count 127 thou/uL (130-400); RBC Distribution Width 12.7 % (11.5-14.5); Red Blood Cell (RBC) Count 3.84 mill/uL (4.20-5.40); White Blood Cell (WBC) Count 5.3 thou/uL (4.8-10.8)
[2017-06-10 08:25] LABS: Anion Gap 12 mmol/L (10-20); BUN (Urea Nitrogen) 10 mg/dL (9.8-20.1); Calc. Creatinine Clearance 75 mL/min (70-130); Calcium 8.3 mg/dL (7.8-10.44); Carbon Dioxide 20 mmol/L (23-31); Chloride 112 mmol/L (98-107); Estimated GFR-MDRD 63; Glucose 93 mg/dL (83-110); Potassium 3.5 mmol/L (3.5-5.1); Sodium 140 mmol/L (136-145)
--- NOTE | 2017-06-10 08:42 | PQF ---
DATE: 06-10-17 ATTN: DR. MONSTER CARROLL Please exercise your independent, professional judgment in responding to the clarification form. Clinical indicators are provided on the bottom of this form for your review Please check appropriate box(s): [ ] Hypertension Emergency [ ] Emergency Crisis [ ] Hypertensive Heart Disease [ x ] Other diagnosis hx of HTN, post ischemic stroke permissive hypertension [ ] Unable to determine In addition, please specify: Present on Admission (POA): [ x ] Yes [ ] No [ ] Unable to determine For continuity of documentation, please document condition throughout progress notes and discharge summary. Thank You. CLINICAL INDICATORS - SIGNS / SYMPTOMS / LABS ER DOCUMENTATION: 244/219, 198/83, 182/108, PT REPORTS THAT SHE HAS A HEADACHE. VITALS: 06-08-17: 202/125, 213/102, 218/112, 216/94, 216/24 06-09-17: 206/107, 214/96, 191/80 H&P: PAST MEDICAL HX OF HTN, HYPERTENSION. CLOSELY MONITOR MILD DEGREE OF PERMISSIVE HTN. RESUME HOME MEDICATIONS TOLERATED AND NEEDED. CONSULT NOTE DR. KENT 06-09-17: MALIGNANT HYPERTENSION RISK FACTORS: H&P: HX OF HTN, CHF, TOBACCO USE, DM TREATMENTS: ER DOCUMENTATION: HYDRALAZINE IVF X [address] KENT 06-09-17: I WOULD RECOMMEND MAINTAINING HER BP WITH A GOAL OF 120-140 SYSTOLIC. TELEMETRY MONITORING (06-07-17) METOPROLOL (This form is maintained as a part of the permanent medical record) 2014 [employer]. All Rights Reserved [email or web address] Office: [phone] [facility]PITALGretchen
[2017-06-10] MEDS ORDERED: Clopidogrel Bisulfate 75 MG TAB PO SCH (09:00)
[2017-06-10] MEDS ORDERED: Nitrofurantoin Monohyd/M-Cryst 100 MG CAP PO SCH (09:00)
[2017-06-10] MEDS ORDERED: Aspirin 325 MG TAB PO SCH (09:00)
[2017-06-10] MEDS: Metoprolol Tartrate 50 MG TAB PO SCH (10:13)
[2017-06-10 12:06] VITALS: TEMP 97.7
[2017-06-10 12:10] VITALS: BP 140/125
--- NOTE | 2017-06-11 15:05 | DIS ---
DATE OF DISCHARGE: 06/10/2017 PRIMARY CARE PHYSICIAN: Dr. Imani Tejada. THICKENER OPERATOR: Dr. Guzman. NEUROLOGY: Dr. Delcid. DISCHARGE DIAGNOSES: 1. Right middle cerebral artery stroke with subsequent slurred speech, left facial droop, and left-s ided weakness. 2. Myocardial infarction type 2, demand related etiology. 3. Hypertension. 4. Dysphagia. HOSPITAL COURSE: This is a 71-year-old female who had a history of hypertension, tobacco use, histor y of TIA, history of CHF, who initially presented with a chief complaint of slurred speech and left-s ided weakness. Please see the original history and physical for full details surrounding admission. During this hospitalization, the patient not only found to have her neurological findings, but also a significantly elevated troponin on admission. Both Cardiology and Neurology services were consulte d. In regards to the patient's neurological findings of left-sided hemiparesis, dysarthria, and faci al droop, she was initially admitted with improving symptoms and then had an episode of "Code Green" which is a rapid response system for recurrent obviously presenting issues. Repeat imaging at that t shayy, did not demonstrate any new changes other than her known right MCA infarct. At the time of disc harge, she is going to an inpatient rehabilitation facility for further treatments with physical therapy professor apy, speech therapy, and occupational therapy. HOME MEDICATIONS: Include the change of her home aspirin to Plavix 75 mg p.o. daily for secondary st roke prevention. LABORATORY DATA: The patient having noted elevated troponin, appreciated by Cardiology consultation. At this point in time, it is felt to be a likely demand type etiology as opposed to coronary obstruction. Patient has been allowed a period of permissive hypertension in the sean-stroke period. At the time of discharge, is being discharged on antihypertensive regimen. Remainder of chronic medical issues were stable during hospitalization. CONSULTATIONS: Cardiology and Neurology. MEDICATION RECONCILIATION: Please see the EMR for full details. Patient will resume her home medica tions with the addition of Plavix and aspirin. DISCHARGE INSTRUCTIONS: At the time of discharge, the patient is being discharged to inpatient rehab ilitation for further treatment of her left-sided hemiparesis and dysarthria. Patient's discharge in struction and disposition have been . Thank you for asking me to care for the patient. Greater than 30 minutes spent coordinating discharge.
== END 2017-06-10 14:34 | DRG 64 ==
LOC: ERS 11:46 → 2SE 17:46
PROVIDERS: ADMIT Internal Medicine; ATTEND Internal Medicine
DX: I63.9 Cerebral infarction, unspecified (principal); A41.9 Sepsis, unspecified organism; I21.A1 Myocardial infarction type 2; I50.30 Unspecified diastolic (congestive) heart failure; G81.94 Hemiplegia, unspecified affecting left nondominant side; N39.0 Urinary tract infection, site not specified; I11.0 Hypertensive heart disease with heart failure; I48.91 Unspecified atrial fibrillation; E11.9 Type 2 diabetes mellitus without complications; R47.81 Slurred speech; F17.210 Nicotine dependence, cigarettes, uncomplicated; Z86.73 Personal history of transient ischemic attack (TIA), and cerebral infarction without residual deficits; E78.5 Hyperlipidemia, unspecified; R47.1 Dysarthria and anarthria; F03.90 Unspecified dementia, unspecified severity, without behavioral disturbance, psychotic disturbance, mood disturbance, and anxiety; R00.0 Tachycardia, unspecified
CPT/HCPCS: 36415; 36416; 70450; 70544; 70547; 70551; 71045; 71046; 80048; 80053; 80061; 81003; 81015; 82550; 82553; 83036; 83605; 84484; 85025; 85610; 85730; 87040; 87077; 87086; 87186; 90471; 90670; 90682; 93005; 93306; 96361; 96374; 96375; 96376; G0008; G0009; G8978-GP-CM; G8979-GP-CK; G8987-GO-CM; G8988-GO-CK; G8996-GN-CL; G8996-GN-CM; G8997-GN-CI; G8997-GN-CK; J0360; J0744; J2405; Q2036; S0028

== ENCOUNTER 2017-06-13 13:58 | Observation (INO) | payer MEDICARE, MEDICAID ==
[2017-06-13] MEDS ORDERED: Acetaminophen 650 MG Suppository PR PRN (14:23)
[2017-06-13] MEDS ORDERED: Dextrose 5 %-0.45 % NaCl 500 ML IV SCH (14:30)
[2017-06-13 16:27] VITALS: BMI 29.7
[2017-06-13 16:29] LABS: #Eosinphils 0.1 thou/uL (0.0-0.7); #Monocytes 0.4 thou/uL (0.11-0.59); #Neutrophils 3.9 thou/uL (1.40-6.50); %Basophils 0.1 % (0.0-1.0); %Eosinophils 1.6 % (0.0-10.0); %Lymphocytes 18.5 % (21.0-51.0); %Monocytes 7.4 % (0.0-10.0); %Neutrophils 72.4 % (42.0-75.0); Hemoglobin 11.9 g/dL (12.0-16.0); Mean Corpuscular HGB CONC 32.3 g/dL (32.0-36.0); Mean Corpuscular Hemoglobin 28.9 pg (27.0-31.0); Mean Corpuscular Volume 89.6 fl (81.0-99.0); Mean Platelet Volume 9.2 fL (7.4-10.4); Platelet Count 136 thou/uL (130-400); RBC Distribution Width 12.7 % (11.5-14.5); Red Blood Cell (RBC) Count 4.12 mill/uL (4.20-5.40); White Blood Cell (WBC) Count 5.4 thou/uL (4.8-10.8)
[2017-06-13 16:49] LABS: Anion Gap 14 mmol/L (10-20); BUN (Urea Nitrogen) 9 mg/dL (9.8-20.1); Calc. Creatinine Clearance 81 mL/min (70-130); Calcium 8.9 mg/dL (7.8-10.44); Carbon Dioxide 21 mmol/L (23-31); Chloride 106 mmol/L (98-107); Estimated GFR-MDRD 68; Glucose 78 mg/dL (83-110); Potassium 3.2 mmol/L (3.5-5.1); Sodium 138 mmol/L (136-145)
--- NOTE | 2017-06-13 17:31 | PRG ---
DATE OF SERVICE: 06/13/2017 REASON FOR CONSULTATION: PEG tube placement. HISTORY OF PRESENT ILLNESS: Letha Mckeon is a 71-year-old woman whom I saw in clinic this morning, referred for PEG placement due to oropharyngeal dysphagia. She was just here earlier this week and discharged from the hospital 2 days ago after her right MCA stroke. Since her discharge to [facility] a couple of days ago, this became evident that she has had worsening oropharyngeal dysphagia. She failed speech therapy swallow evaluation and was referred to me for consideration of PEG tube placement. She denies any abdominal pain. She has not had any abdominal surgeries that she can recall. She is on Plavix. PAST MEDICAL HISTORY: CHF, myocardial infarction, hypertension, stroke, and arthritis. PAST SURGICAL HISTORY: Cardiac catheterization, hysterectomy, tubal and ligation. ALLERGIES: PENICILLIN and SULFA DRUGS. OUTPATIENT MEDICATIONS: Vitamin D3, metoprolol, Lasix, Tylenol with Codeine, methylprednisolone, Zocor, risedronate, Seroquel, leflunomide, donepezil, aspirin, lisinopril, and Plavix. SOCIAL HISTORY: She is currently at [facility], no alcohol use. She is a former smoker. PHYSICAL EXAMINATION: GENERAL: Elderly, frail 71-year-old woman lying in bed comfortably, in no acute distress. SKIN: She is pale, no jaundice, no rashes were palpable. No surgical scars to the anterior abdomen. HEART: Regular rate and rhythm. LUNGS: Clear to auscultation bilaterally. ABDOMEN: No surgical scars apparent, soft and nontender to palpation. EXTREMITIES: No peripheral edema. LABORATORY STUDIES: No new labs yet today. Labs from 2 days ago showed WBC 7.0 , hemoglobin 12.7, platelets 134. Sodium 141, potassium 3.8, BUN 9, creatinine 0.84. ASSESSMENT AND PLAN: 1. Oropharyngeal dysphagia. 2. Recent right middle cerebral artery stroke, it has become evident that the patient is not going to be able to get adequate nutrition safely by the oral route and PEG placement is requested. I agree that this needs to be done. I have discussed the potential risks, complications as well as the benefits of PEG placement with the patient's son. We will plan to perform PEG placement tomorrow morning. Remain n.p.o. until then. I would recommend dietitian consultation and overnight observation following PEG placement to assure no complications from the procedure. Please call with any questions or concerns. CAROLE
--- NOTE | 2017-06-13 18:28 | HP ---
PRESENTING COMPLAINT: Difficulty swallowing. HISTORY OF PRESENT ILLNESS: A 71-year-old female with a past medical history of congestive heart reza lure, insulin-dependent diabetes mellitus, hypertension, hyperlipidemia, and recent CVA who was sent from rehab facility today due to difficulty swallowing. Since her recent stroke, she has had trouble swallowing and any time feeding was attempted, she will cough; however, there was no history of shor tness of breath, fevers or chills or productive cough. She denies nausea, vomiting. She has no urin yaneli symptoms. She was evaluated by Dr. Alvarado, the clinical research assistant who decided to proceed with the PEG tube placement and sent the patient over to the hospital for admission. PAST MEDICAL HISTORY: As above. PAST SURGICAL HISTORY: Status post cardiac catheterization, status post hysterectomy, status post ca rotid endarterectomy. HOME MEDICATIONS: Clonidine 0.1 mg p.o. t.i.d. p.r.n., Plavix 75 mg daily, donepezil, hydrochloride 5 mg at bedtime, furosemide 20 mg daily, leflunomide 20 mg daily, methylprednisone 2 mg p.o. daily, m etoprolol tartrate 50 mg p.o. b.i.d., nitrofurantoin 100 mg p.o. b.i.d., quetiapine 100 mg p.o. daily , risedronate 35 mg p.o. every 7 days. Simvastatin 40 mg at bedtime. FAMILY HISTORY: History of CVA and cardiovascular disease in mother. SOCIAL HISTORY: Recently stopped smoking cigarettes. Denies alcohol or illicit drug use. REVIEW OF SYSTEMS: General: Denies fever, chills, headaches, dizziness. HEENT: Denies any changes in vision, nasal congestion. CVS: Denies chest pain, shortness of breath, palpitations, edema. Re spiratory: Denies cough, shortness of breath, sputum production. Gastrointestinal: Denies nausea, vomiting, diarrhea, constipation. Genitourinary: Denies dysuria, frequency, hematuria. Musculoskel etal: Positive for left-sided weakness secondary to stroke. Hematology: Negative. Skin: Denies r ashes, easy bruising. Neurology: Denies dizziness, loss of consciousness, headaches. PHYSICAL EXAMINATION: VITAL SIGNS: Stable on arrival. GENERAL: Not in acute distress, sitting comfortably in bed. HEENT: Moist mucous membranes. Normocephalic, atraumatic. PERRLA, anicteric. CARDIOVASCULAR: S1, S2 only with no murmurs or gallop. No edema. RESPIRATORY: Clear to auscultation bilaterally. No wheezes, rales or rhonchi. ABDOMEN: Positive bowel sounds, nontender, nondistended. No hepatosplenomegaly. MUSCULOSKELETAL: Moving all 4 extremities. Strength 5/5 in right extremities, 4/5 in the left upper extremities and 5/5 left lower extremity. NEUROLOGIC: No focal deficits. PSYCHIATRIC: Alert and well oriented. SKIN: Warm, dry, well perfused. LABORATORY DATA: Ordered and pending. EKG, no signs of acute ischemia. ASSESSMENT AND PLAN: A 71-year-old female who presented to the emergency room due to dysphagia and a dmitted for PEG tube placement. 1. Dysphagia, sequelae of recent cerebrovascular accident. GI has been consulted and we will assess the patient and take to the OR for PEG tube placement. She will remain n.p.o. 2. Recent cerebrovascular accident of right middle cerebral artery, stable. She remains n.p.o. PT/ OT will be consulted to continue therapy while in the hospital. Speech pathology also consulted. Fo r her other medical conditions, p.o. medications are being held. Blood pressure is being monitored a nd will be controlled parenterally. CODE STATUS: FULL CODE. ALLERGIES: PENICILLIN, SULFA MEDICATION.
[2017-06-14 05:32] LABS: #Eosinphils 0.1 thou/uL (0.0-0.7); #Lymphocytes 1.1 thou/uL (1.20-3.40); #Monocytes 0.5 thou/uL (0.11-0.59); #Neutrophils 3.4 thou/uL (1.40-6.50); %Basophils 0.5 % (0.0-1.0); %Eosinophils 1.9 % (0.0-10.0); %Lymphocytes 21.6 % (21.0-51.0); %Monocytes 9.8 % (0.0-10.0); %Neutrophils 66.2 % (42.0-75.0); Hemoglobin 11.3 g/dL (12.0-16.0); Mean Corpuscular HGB CONC 32.6 g/dL (32.0-36.0); Mean Corpuscular Hemoglobin 29.1 pg (27.0-31.0); Mean Corpuscular Volume 89.3 fl (81.0-99.0); Mean Platelet Volume 9.4 fL (7.4-10.4); Platelet Count 131 thou/uL (130-400); RBC Distribution Width 12.5 % (11.5-14.5); Red Blood Cell (RBC) Count 3.89 mill/uL (4.20-5.40); White Blood Cell (WBC) Count 5.1 thou/uL (4.8-10.8)
[2017-06-14 05:48] LABS: Anion Gap 12 mmol/L (10-20); BUN (Urea Nitrogen) 8 mg/dL (9.8-20.1); Calc. Creatinine Clearance 88 mL/min (70-130); Calcium 8.9 mg/dL (7.8-10.44); Carbon Dioxide 21 mmol/L (23-31); Chloride 108 mmol/L (98-107); Estimated GFR-MDRD 76; Glucose 80 mg/dL (83-110); Sodium 138 mmol/L (136-145)
[2017-06-14 05:53] LABS: Potassium 2.9 mmol/L (3.5-5.1)
[2017-06-14] MEDS ORDERED: Potassium Chloride 20 MEQ in Premix Bag 1 BAG IVPB SCH ×2 (06:45→08:05)
[2017-06-14] MEDS ORDERED: hydrALAZINE 20 MG/ML VIAL SLOW IVP PRN ×2 (07:33→13:24)
[2017-06-14] MEDS ORDERED: Levofloxacin 500 mg/D5W 100 ml Premix Bag ONE (09:07)
[2017-06-14] MEDS ORDERED: Clindamycin/D5W 900 mg/50 ml Premix Bag ONE (09:07)
[2017-06-14] MEDS ORDERED: Morphine Sulfate 2 MG/ML SYRINGE SLOW IVP PRN (10:01)
[2017-06-14] MEDS ORDERED: Promethazine HCl 25 MG/ML VIAL IM PRN (10:01)
[2017-06-14] MEDS ORDERED: Ondansetron HCl/PF 4 MG/2 ML Vial IVP PRN (10:01)
[2017-06-14] MEDS ORDERED: Promethazine HCl 25 MG/ML VIAL SLOW IVP PRN (10:01)
[2017-06-14] MEDS ORDERED: Clindamycin/D5W 900 MG in Premix Bag 1 BAG IVPB SCH (12:15)
--- NOTE | 2017-06-14 12:30 | OP ---
DATE OF PROCEDURE: 06/14/2017 GI ENDOSCOPY NOTE SURGEON: Dwayne Alvarado M.D. COMPUTER HARDWARE DESIGNER SURGEON: None. PROCEDURES: Esophagogastroduodenoscopy, diagnostic. Planned PEG placement was aborted. MEDICATIONS: 1. See anesthesia record. 2. Levofloxacin 500 mg IV. 3. Clindamycin IV was not given as PEG placement was aborted. INDICATIONS: Oropharyngeal dysphagia following stroke. FINDINGS: After discussion of the risks, benefits and alternatives of the procedure, informed consen t was obtained and witnessed. Pre-endoscopic cardiopulmonary examination was satisfactory. Timeout was performed before sedation was achieved. Sedation was achieved with anesthesia assistance in the endoscopy unit. The procedure was performed under general anesthesia with the patient endotracheally intubated. A Pentax adult upper endoscope was placed into the oropharynx and passed through the cri copharyngeus under direct visualization. The esophageal mucosa appeared normal throughout. The endo scope was advanced into the stomach. Forward and retroflexed views of the entire gastric mucosa were obtained. The gastric mucosa appeared normal. The upper endoscope was then advanced into the first and second portions of the duodenum. There is some mild duodenitis with friability in the duodenal bulb, but no ulcerations noted. The endoscope was then withdrawn back into the stomach. We attempte d to find a suitable site for PEG tube placement using 1:1 pressure and transillumination methods. U nfortunately, I was unable to transilluminate from the gastric lumen to the anterior abdominal wall. I was able to get pretty good 1:1 pressure, but in the absence of transillumination, it was decided not to proceed with PEG placement attempts due to the increased risk of potential complications. The refore, the upper endoscope was completely withdrawn and the procedure was completed. The patient wa s able to be extubated following the procedure. She tolerated the procedure well. There were no imm ediate post-procedure complications. IMPRESSION: 1. Unable to place percutaneous endoscopic gastrostomy tube due to inability to transilluminate to f ind a suitable site. 2. Mild duodenitis. 3. Otherwise, normal esophagogastroduodenoscopy. RECOMMENDATIONS: Obtain surgical consultation for PEG placement. Please call back at any time if questions or concerns.
--- NOTE | 2017-06-14 13:20 | PDOC.PN ---
- Subjective Encounter Start Date: 06/14/17 Encounter Start Time: 13:26 Subjective: No new complaints. -: No acute events overnight. - Objective Resuscitation Status: Resuscitation Status FULL:Full Resuscitation MAR Reviewed: Yes Vital Signs & Weight: Vital Signs (12 hours) Temp Pulse Resp BP BP Pulse Ox 06/14/17 11:02 97.7 F 93 20 122/65 95 06/14/17 08:25 98 190/100 H 06/14/17 08:00 98.4 F 98 20 06/14/17 07:03 98.7 F 98 20 190/100 H 92 L 06/14/17 04:00 98.7 F 93 20 175/103 H 90 L Weight Admit Weight 184 lb 1.6 oz Weight 184 lb 1.6 oz I&O: 06/13/17 06/14/17 06/15/17 06:59 06:59 06:59 Intake Total 909 Output Total 1 Balance 909 -1 Result Diagrams: 06/14/17 05:06 06/14/17 05:06 Phys Exam - Physical Examination Constitutional: NAD HEENT: PERRLA, moist MMs, sclera anicteric Neck: supple, full ROM Respiratory: no wheezing, no rales, no rhonchi, clear to auscultation bilateral Cardiovascular: RRR, no significant murmur, no rub Gastrointestinal: soft, non-tender, no distention, positive bowel sounds Musculoskeletal: no edema, pulses present Neurological: non-focal, moves all 4 limbs Psychiatric: normal affect Deviation from normal: oriented x 2 Skin: no rash, normal turgor Dx/Plan (1) Dysphagia as late effect of cerebrovascular accident (CVA) Code(s): I69.391 - DYSPHAGIA FOLLOWING CEREBRAL INFARCTION Status: Acute Plan: For PEG placement by General Surgery. Comment: Modified barium swallow ordered. Unbale to get PEG placed by GI. Surgery consulted. Remains NPO. (2) Acute right MCA stroke Code(s): I63.511 - CEREB INFRC D/T UNSP OCCLS OR STENOS OF RIGHT MID CEREB ART Status: Acute Comment: Stable. No new deficits. Continue with ST, PT, OT (3) Hypertension Code(s): I10 - ESSENTIAL (PRIMARY) HYPERTENSION Status: Acute Qualifiers: Hypertension type: essential hypertension Qualified Code(s): I10 - Essential (primary) hypertension Comment: Uncontrolled 2/2 patient being NPO. Hydralazine IV PRN instituted with parameters. (4) Hypokalemia Code(s): E87.6 - HYPOKALEMIA Status: Acute Comment: Being repleted parenterally. - Plan cont current plan of care, continue antibiotics, PT/OT Surgery consult for PEG placement. -: f/u Modified barium swallow -: PT/OT * .
[2017-06-14] MEDS ORDERED: Labetalol HCl 100 MG/20 ML VIAL SLOW IVP PRN (13:23)
--- NOTE | 2017-06-14 14:18 | RAD ---
ABDOMEN 1 VIEW: Date: 06/14/17 HISTORY: PEG attempt. COMPARISON: None. FINDINGS: Evaluation for free air is limited without upright view. There is opacity in the left lung base. Dens e calcifications of the splenic artery. No dilated loops of large or small bowel. Multiple surgical c lips in the left thigh. Moderate degenerative disease to the lower lumbar spine. IMPRESSION: 1. Evaluation for free air limited without upright exam. 2. No evidence for bowel obstruction. 3. Opacity over left lung base. POS: [facility]
[2017-06-14] MEDS ORDERED: PROPOFOL 200 MG/20 ML VIAL ONE (16:32)
[2017-06-14] MEDS ORDERED: Esmolol 100 MG/10 ML VIAL ONE (16:32)
[2017-06-14] MEDS ORDERED: Labetalol 100 MG/20 ML MDV ONE (16:32)
[2017-06-14] MEDS ORDERED: Succinylcholine Chloride 20 MG/ML 10 ml SYRINGE FS ONE (16:32)
[2017-06-14] MEDS ORDERED: Lidocaine 1% PF 5 ML VIAL ONE (16:32)
--- NOTE | 2017-06-15 00:34 | CON ---
DATE OF CONSULTATION: 06/14/2017 REASON FOR CONSULTATION: Dysphagia. HISTORY: Ms. Mckeon is a 71-year-old woman who recently suffered a stroke. She apparently was having a lot of coughing with attempts to feed and there was concern of aspiration. She was evaluated by hall porter, Dr. Alvarado, for PEG placement, but he was unable to place this, so a laparoscopic G-tube has been requested. PAST MEDICAL HISTORY: Diabetes, now requiring insulin, hypertension, hyperlipidemia, and stroke with resulting dysphagia. PAST SURGICAL HISTORY: Cardiac catheterization, hysterectomy and bilateral carotid endarterectomy. OUTPATIENT MEDICATIONS: Include clonidine, Plavix, donepezil, hydrochlorothiazide, Lasix, leflunomide, methylprednisolone, metoprolol, nitrofurantoin, quetiapine, risedronate and simvastatin. ALLERGIES: To PENICILLIN and SULFA. FAMILY HISTORY: Heart disease and stroke in her mother. SOCIAL HISTORY: She is a former smoker, having recently stopped. She does not use alcohol or illicit drugs. REVIEW OF SYSTEMS: The patient herself denies any abdominal pain, nausea or any swallowing problems. She has some word finding problems, which are evident with conversation, and she does have a cough, but does not complain of shortness of breath. PHYSICAL EXAMINATION: VITAL SIGNS: The patient has been afebrile with normal vital signs, O2 sats are in 94% on room air, and blood pressure has been mildly elevated in the 140 systolic. GENERAL: Reveals an elderly woman in acute distress. She has some left-sided facial droop and some mild drooling and has some difficulty answering complex questions, although it is not entirely clear whether the difficulties in understanding or in responding. HEENT: Unremarkable. She has healed carotid endarterectomy scars bilaterally. No cervical bruits. No lymphadenopathy or thyroid masses. HEART: Regular in its rate and rhythm without murmurs, rubs or gallops bilaterally, I do not appreciate any wheezing. ABDOMEN: Soft, nontender, and nondistended. No palpable masses or hernias. EXTREMITIES: Warm and well perfused. She uses both hands, but seems this is weak. LABORATORY DATA: White count is normal, hematocrit 34.7, platelets 131, potassium is low at 2.9, but potassium IV has been ordered. Other electrolytes are unremarkable. ASSESSMENT: Dysphagia with need for feeding tube placement. The patient does wish to proceed with this. My plan is to obtain a KUB in the morning. If her colon is not very dilated and distended, then a second attempt at a PEG tube will be made. If a good finger impulse can be seen, then a PEG tube will be placed, otherwise laparoscopic G-tube placement will be performed with possibility for open G-tube placement. Inherent risks of the operation were discussed with the patient and also with her son by telephone. For the PEG tube these include, but are not limited to, bleeding, infection, risks of anesthesia, bowel perforation or injury to bowel interposed between the stomach and the abdominal wall. For laparoscopic or open G-tube placement risks include , but are not limited to, bleeding, infection, risks of anesthesia, damage to nearby abdominal contents such as bowel or blood vessel. Risks for PEG tube or G-tube displacement and need for other operations are also present with either operation. The patient and her son expressed understanding of these risks and both wish to proceed. Antibiotics will be ordered continuous mining machine coal miner to the operating room. All of their questions were answered. CAROLE
[2017-06-15 05:38] LABS: #Lymphocytes 1.3 thou/uL (1.20-3.40); #Monocytes 0.4 thou/uL (0.11-0.59); #Neutrophils 3.9 thou/uL (1.40-6.50); %Basophils 0.5 % (0.0-1.0); %Eosinophils 0.8 % (0.0-10.0); %Lymphocytes 22.8 % (21.0-51.0); %Monocytes 7.4 % (0.0-10.0); %Neutrophils 68.4 % (42.0-75.0); Hemoglobin 11.5 g/dL (12.0-16.0); Mean Corpuscular HGB CONC 32.4 g/dL (32.0-36.0); Mean Corpuscular Volume 89.5 fl (81.0-99.0); Mean Platelet Volume 10.1 fL (7.4-10.4); Platelet Count 155 thou/uL (130-400); RBC Distribution Width 12.7 % (11.5-14.5); Red Blood Cell (RBC) Count 3.97 mill/uL (4.20-5.40); White Blood Cell (WBC) Count 5.8 thou/uL (4.8-10.8)
[2017-06-15 05:43] LABS: Anion Gap 14 mmol/L (10-20); BUN (Urea Nitrogen) 8 mg/dL (9.8-20.1); Calc. Creatinine Clearance 87 mL/min (70-130); Calcium 9.3 mg/dL (7.8-10.44); Carbon Dioxide 22 mmol/L (23-31); Chloride 108 mmol/L (98-107); Estimated GFR-MDRD 75; Glucose 68 mg/dL (83-110); Potassium 3.2 mmol/L (3.5-5.1); Sodium 141 mmol/L (136-145)
[2017-06-15] MEDS ORDERED: Potassium Chloride 20 MEQ/100 ML PREMIX BAG IVPB SCH (07:45)
[2017-06-15] MEDS ORDERED: Dextrose 5 %-0.45 % NaCl 1,000 ML IV SCH (07:45)
[2017-06-15] MEDS ORDERED: Lidocaine 1% (PF) 30 ML VIAL ONE (07:47)
[2017-06-15] MEDS ORDERED: Levofloxacin 500 mg/D5W 100 ml Premix Bag ONE (07:49)
[2017-06-15] MEDS ORDERED: Clindamycin/D5W 900 mg/50 ml Premix Bag ONE (07:49)
[2017-06-15] MEDS ORDERED: Fentanyl 100 MCG/2 ML VIAL ONE (08:01)
[2017-06-15] MEDS ORDERED: Dextrose 50% Abboject 50 ML SYRINGE ONE (08:22)
--- NOTE | 2017-06-15 08:43 | RAD ---
ABDOMEN 1 VIEW: Date: 06/15/17 HISTORY: Status post PEG attempt. COMPARISON: Abdomen 1 view from prior day. FINDINGS: Evaluation for free air is limited without upright exam. There are no dilated or air-filled loops of large or small bowel. Entire left hemidiaphragm is not imaged on this exam and lateral hemidiaphragm on left is obscured. Dense splenic artery calcifications. Severe facet arthropathy lower lumbar spine. IMPRESSION: No acute abnormality. POS: [facility]
--- NOTE | 2017-06-15 08:45 | RAD ---
CHEST 1 VIEW: Date: 06/14/17 HISTORY: Shortness of breath. COMPARISON: Chest 1 view dated 06/11/17. FINDINGS: Heart size enlarged. There is air space opacity right lung base. Mild interstitial prominence. Dense calcifications of aorta. IMPRESSION: 1. Cardiomegaly. 2. New right basilar air space opacity may reflect infection or developing atelectasis. 3. Mild interstitial edema. POS: [facility]
[2017-06-15] MEDS ORDERED: Promethazine HCl 25 MG/ML VIAL IM PRN (08:59)
[2017-06-15] MEDS ORDERED: Promethazine HCl 25 MG/ML VIAL SLOW IVP PRN (08:59)
[2017-06-15] MEDS ORDERED: Ondansetron HCl/PF 4 MG/2 ML Vial IVP PRN (08:59)
--- NOTE | 2017-06-15 10:11 | PDOC.PN ---
- Subjective Encounter Start Date: 06/15/17 Encounter Start Time: 11:04 Subjective: No complaints. -: No acute events overnight. -: PEG Tube to be placed today by GS - Objective Resuscitation Status: Resuscitation Status FULL:Full Resuscitation MAR Reviewed: Yes Vital Signs & Weight: Vital Signs (12 hours) Temp Pulse Resp BP BP Pulse Ox 06/15/17 07:30 98.2 F 82 18 178/78 H 96 06/15/17 07:12 98.4 F 76 20 06/15/17 04:00 98.4 F 76 20 109/56 L 95 06/15/17 00:00 98.4 F 86 20 145/66 H 95 Weight Admit Weight 184 lb 1.6 oz Weight 184 lb 1.6 oz I&O: 06/14/17 06/15/17 06/16/17 06:59 06:59 06:59 Intake Total 909 0 Output Total 1 Balance 909 -1 Result Diagrams: 06/15/17 04:17 06/15/17 04:17 Phys Exam - Physical Examination Constitutional: NAD HEENT: PERRLA, moist MMs, sclera anicteric Neck: supple, full ROM Respiratory: no wheezing, no rales, no rhonchi, clear to auscultation bilateral Cardiovascular: RRR, no significant murmur, no rub Gastrointestinal: soft, non-tender, no distention, positive bowel sounds Musculoskeletal: no edema, pulses present residual r hemiparesis Psychiatric: normal affect Deviation from normal: Ox2. Alert.. Skin: no rash, normal turgor Dx/Plan (1) Dysphagia as late effect of cerebrovascular accident (CVA) Code(s): I69.391 - DYSPHAGIA FOLLOWING CEREBRAL INFARCTION Status: Acute Comment: Remains NPO. PEG tube to be placed today by general surgery (2) Acute right MCA stroke Code(s): I63.511 - CEREB INFRC D/T UNSP OCCLS OR STENOS OF RIGHT MID CEREB ART Status: Acute Comment: Unchanged. No new deficits. Continue with ST, PT, OT (3) Hypertension Code(s): I10 - ESSENTIAL (PRIMARY) HYPERTENSION Status: Acute Qualifiers: Hypertension type: essential hypertension Qualified Code(s): I10 - Essential (primary) hypertension Comment: Uncontrolled 2/2 patient being NPO. Achieving better control / Hydralazine and labetalol IV PRN instituted with parameters. (4) Hypokalemia Code(s): E87.6 - HYPOKALEMIA Status: Acute Plan: Replete Comment: Being repleted parenterally. - Plan cont current plan of care, PT/OT Likely hack to rehab facitilty tomorrow after PEG tube feeds started -: Nutrition consult. * .
[2017-06-15] MEDS ORDERED: Pancrelipase DR 12000 1 CAP FS PRN (10:25)
[2017-06-15] MEDS ORDERED: Sodium Bicarbonate Tab 325 MG TAB PER TUBE PRN (10:25)
[2017-06-15] MEDS ORDERED: Morphine 2 MG/ML SYRINGE SLOW IVP SCH (12:00)
[2017-06-15 13:46] VITALS: BP 122/79; TEMP 97.2
[2017-06-15] MEDS ORDERED: PROPOFOL 200 MG/20 ML VIAL ONE (16:37)
[2017-06-15] MEDS ORDERED: Succinylcholine Chloride 20 MG/ML 10 ml SYRINGE FS ONE (16:37)
[2017-06-15] MEDS ORDERED: Lidocaine 1% PF 5 ML VIAL ONE (16:37)
[2017-06-15] MEDS ORDERED: Ondansetron HCl/PF 4 MG/2 ML Vial ONE (16:37)
--- NOTE | 2017-06-15 19:58 | DIS ---
DATE OF ADMISSION: 06/13/2017 DATE OF DISCHARGE: 06/15/2017 DISCHARGE DIAGNOSES: Dysphagia secondary to effects of cerebrovascular accident. SECONDARY DIAGNOSES: 1. Cerebrovascular accident. 2. Insulin-dependent diabetes mellitus. 3. Hypertension. 4. Hyperlipidemia. 5. Congestive heart failure. DISCHARGE MEDICATIONS: Clonidine 0.1 mg t.i.d. p.r.n. for hypertension, clopidogrel 75 mg p.o. daily, donepezil 5 mg p.o. at bedtime, furosemide 20 mg p.o. daily, leflunomide 20 mg p.o. daily, methylprednisolone 2 mg p.o. daily, metoprolol 50 mg p.o. daily, Macrobid 100 mg p.o. b.i.d., quetiapine 100 mg p.o. daily, risedronate 35 mg p.o. q.7 days, simvastatin 40 mg p.o. at bedtime. HISTORY OF PRESENT ILLNESS/HOSPITAL COURSE: This is a 71-year-old female who presented to the hospital due to difficulty swallowing. Ever since her recent stroke, she has had difficulty keeping food down and would cough any time feeding was attempted. There was no associated shortness of breath, fevers or chills. There was no cough or sputum production. She denied nausea or vomiting. She was otherwise asymptomatic. She was evaluated in her rehab facility by Dr. Alvarado who decided to proceed with PEG tube placement. The patient was sent to the hospital for admission. On admission, her vital signs were stable apart from elevated blood pressure due to her being made n.p.o. Blood pressure was controlled using IV hydralazine and labetalol. Dr. Alvarado attempted PEG tube placement on 06/14/2017 but was unsuccessful. Therefore, General Surgery was consulted and PEG tube was placed on 06/15/2017. The general surgeon reviewed the patient and the patient was stable for discharge. The general i farmworker will follow up as an outpatient and PEG tube feeding will start tomorrow with nutritional support. PHYSICAL EXAMINATION: The patient was examined on the day of discharge. For details, see today's progress notes. CONSULTATIONS: Gastroenterology, General Surgery. PROCEDURES: PEG tube placement, abdominal x-ray, chest x-ray. DIET: The patient was made n.p.o. during her stay. She will proceed with tube feeds following discharge. ACTIVITIES: As tolerated and as directed by physical and occupational therapy. HEALTHCARE GOALS: The patient is to resume tube feeds on discharge and also continue to follow up with speech therapy, discharged to a rehab facility. CONDITION AT DISCHARGE: Stable. Total time of discharge including documentation 65 minutes. MTDD
--- NOTE | 2017-06-16 12:09 | PDOC.OP ---
Operative Note - Operative Note Operative Note: PROCEDURE: Percutaneous endoscopic gastrostomy tube placement SURGEON: Nia Amos M.D. PREOPERATIVE DIAGNOSIS: Dysphagia POSTOPERATIVE DIAGNOSIS: Dysphagia HISTORY: Patient had a recent stroke and is unable to swallow safely. Gastrostomy tube was requested. Attempted PEG tube placement yesterday was unsuccessful but on KUB the transverse colon is well down and there is not any distended bowel between the stomach and the abdominal wall so the recommendation was made to attempt another PEG tube, with laparoscopic G-tube placement if this was unsuccessful PROCEDURE IN DETAIL: After informed consent was obtained and appropriate preoperative antibiotics were administered, the patient was taken to the operating room and anesthesia administered. The gastroscope was passed down into the stomach under direct vision. The esophagus was grossly normal and the stomach insufflated normally. A finger impulse was clearly seen in the antrum with palpation in the left upper quadrant. This skin was sterilely prepped and local anesthesia infused. The skin incision was made and a needle and sheath placed into the gastric lumen under direct vision of the gastroscope. The needle was removed leaving the sheath in place and a wire advanced through the sheath. Attempts to grasp the wire were unsuccessful and unfortunately the wire pulled back out of the stomach so the sheath and needle had to be re-placed into the gastric lumen. The needle was removed and wire advanced through the sheath and was able to be successfully grasped. The wire was grasped by the gastroscope and drawn out through the mouth. This was secured to the 20 Thai pull PEG which was then drawn back out through the abdominal wall and secured to the skin using the outer flange, with the skin at 4 cm. The tapered portion of the pull PEG was cut off and the adapter connected. The PEG was dressed with antibiotic ointment and gauze and tape. The patient's family was informed of all intraoperative events including the need for 2 sticks. Patient tolerated the procedure well. Estimated blood loss was minimal. There were no complications.
--- NOTE | 2017-06-22 16:33 | EKG ---
Test Reason : Blood Pressure : / mmHG Vent. Rate : 089 BPM Atrial Rate : 076 BPM P-R Int : 000 ms QRS Dur : 070 ms QT Int : 388 ms P-R-T Axes : 076 -12 086 degrees QTc Int : 472 ms Undetermined rhythm Nonspecific T wave abnormality Prolonged QT Abnormal ECG When compared with ECG of 07-JUN-2017 13:31, (Unconfirmed) Current undetermined rhythm precludes rhythm comparison, needs review Nonspecific T wave abnormality, worse in Lateral leads Confirmed by Funmi IQBAL ([id number]) on 06/22/2017 4:33:37 PM Referred By: LUZ MARIA Confirmed By:Funmi IQBAL
== END 2017-06-15 15:20 ==
LOC: UNDOADMIN 13:58 → 2SE 13:58 → PREINTOOBSV 13:59 → 2SE 13:59 → T4-A 06-14 15:33
PROVIDERS: ADMIT Internal Medicine; ATTEND Internal Medicine
PROC: 0DJ08ZZ Inspection of Upper Intestinal Tract, Via Natural or Artificial Opening Endoscopic (ICD-10-PCS; principal; 2017-06-14)
PROC: 0DH63UZ Insertion of Feeding Device into Stomach, Percutaneous Approach (ICD-10-PCS; 2017-06-15)
DX: I69.391 Dysphagia following cerebral infarction (principal); E78.5 Hyperlipidemia, unspecified; I11.0 Hypertensive heart disease with heart failure; I50.9 Heart failure, unspecified; I25.2 Old myocardial infarction; M19.90 Unspecified osteoarthritis, unspecified site; E11.9 Type 2 diabetes mellitus without complications; K29.80 Duodenitis without bleeding; Z79.02 Long term (current) use of antithrombotics/antiplatelets; Z79.52 Long term (current) use of systemic steroids; Z79.899 Other long term (current) drug therapy; Z88.0 Allergy status to penicillin; Z88.2 Allergy status to sulfonamides; Z98.51 Tubal ligation status; Z90.710 Acquired absence of both cervix and uterus; Z98.890 Other specified postprocedural states; Z87.891 Personal history of nicotine dependence
CPT/HCPCS: 43235; 43246; 71045; 74018 ×2; 80048 ×3; 82962; 83735; 85025 ×3; 93005; 96361 ×2; 96365; 96375; 97139 ×2; G0378; 36415; 36416; 93010; A4216; G8996-GN-CL; G8997-GN-CJ; J0360; J1956; J2001; J2270; J2405; J2704; J3010; J3480; J3490

== ENCOUNTER 2017-06-30 15:27 | Inpatient (IN) | payer MEDICARE, MEDICAID ==
[2017-06-30 15:58] LABS: #Eosinphils 0.1 thou/uL (0.0-0.7); #Lymphocytes 1.2 thou/uL (1.20-3.40); #Monocytes 0.4 thou/uL (0.11-0.59); #Neutrophils 8.7 thou/uL (1.40-6.50); %Basophils 0.4 % (0.0-1.0); %Eosinophils 0.6 % (0.0-10.0); %Lymphocytes 11.7 % (21.0-51.0); %Monocytes 3.8 % (0.0-10.0); %Neutrophils 83.6 % (42.0-75.0); Hemoglobin 13.4 g/dL (12.0-16.0); Mean Corpuscular HGB CONC 32.3 g/dL (32.0-36.0); Mean Corpuscular Hemoglobin 28.8 pg (27.0-31.0); Mean Corpuscular Volume 89.2 fl (81.0-99.0); Mean Platelet Volume 9.6 fL (7.4-10.4); Platelet Count 235 thou/uL (130-400); RBC Distribution Width 13.6 % (11.5-14.5); Red Blood Cell (RBC) Count 4.63 mill/uL (4.20-5.40); White Blood Cell (WBC) Count 10.4 thou/uL (4.8-10.8)
--- NOTE | 2017-06-30 16:15 | RAD ---
PORTABLE CHEST ONE VIEW: Date: 06-30-17 Time: 2:59 p.m. History: Altered mental status. FINDINGS: Comparison is made with exam of 06-15-17. There has been interval development of patchy infiltrative disease in the right lower lung. No pneumo thoraces or pleural effusions are seen. IMPRESSION: Right sided pneumonia. POS: [facility]
[2017-06-30 16:23] LABS: ALT (SGPT) 15 U/L (8-55); AST (SGOT) 31 U/L (5-34); Albumin 3.4 g/dL (3.4-4.8); Alkaline Phosphatase 80 U/L (40-150); Anion Gap 14 mmol/L (10-20); BUN (Urea Nitrogen) 23 mg/dL (9.8-20.1); Bilirubin, Total 0.8 mg/dL (0.2-1.2); CK (CPK) 251 U/L (29-168); Calc. Creatinine Clearance 0 mL/min (70-130); Calcium 9.5 mg/dL (7.8-10.44); Carbon Dioxide 27 mmol/L (23-31); Chloride 98 mmol/L (98-107); Estimated GFR-MDRD 56; Globulin 3.2 g/dL (2.4-3.5); Glucose 128 mg/dL (83-110); Lipase 14 U/L (8-78); Protein, Total 6.6 g/dL (6.0-8.3); Sodium 135 mmol/L (136-145)
[2017-06-30 16:27] LABS: CKMB 1.8 ng/mL (0-6.6); Troponin I 0.101 ng/mL (< 0.028)
--- NOTE | 2017-06-30 16:48 | RAD ---
RIGHT HIP TWO VIEWS: History: Fall, right hip injury. FINDINGS: Joint spaces are preserved. There is mild osteophytosis. No acute fracture, dislocation, or aggressiv e osseous erosions are evident. Calcifications overlie the arterial structures. IMPRESSION: 1. Mild osteoarthritic changes right hip. 2. Atherosclerosis. POS: [facility]
[2017-06-30 17:48] LABS: Bilirubin Negative (Negative); Blood, Urine Negative (Negative); Clarity CLOUDY (Clear); Glucose, Urine (Dipstick) Negative (Negative); Leukocyte Negative (Negative); Nitrite Negative (Negative); Protein, Urine (Dipstick) Trace mg/dL (Neg-Trace); Specific Gravity, Urine 1.019 (1.002-1.036); pH, Urine 7.5 (5.0-9.0)
--- NOTE | 2017-06-30 18:59 | HP ---
PRIMARY CARE PHYSICIAN: Dr. Tejada. CHIEF COMPLAINT: Generalized weakness and lethargy. HISTORY OF PRESENT ILLNESS: Ms. Mckeon is a pleasant 71-year-old female who recently suffered a large right MCA infarct. She recently had a PEG tube placed as well or gastrostomy tube placed and was di scharged to the inpatient rehabilitation unit. There, it was noted that she seemed lethargic and was breathing heavy and about a few hours later, she looked drooping and it seemed like she had an irreg ular heartbeat according to her son who is the historian. They were concerned that she may have had re-infarction and sent her to the emergency room where a CT scan of the brain was done. It showed st roke in evolution, but no signs of any new infarct and she was sent back to the rehabilitation unit; however, they were still concerned that she feels seemed a bit lethargic and "droopy" according to he r son. They also noted that she was coughing and found it a lot more congested and gurgling again ac cording to the son and for this reason, she was sent back to the emergency room. At this time, a miriam st x-ray was done and it demonstrated that she has a right lower lobe infiltrate and she is being adm itted for this. The patient is basically aphasic and unable to give me any additional history. REVIEW OF SYSTEMS: Unobtainable as the patient is unable to give me any history likely due to the re cent stroke. PAST MEDICAL HISTORY: Taken from the recent history and physical by Dr. Jenkins on 06/13/2017 and i ncludes congestive heart failure; diabetes mellitus type 2, insulin-dependent; hypertension, hyperlip idemia, and recent right MCA, CVA as well as dysphasia. PAST SURGICAL HISTORY: She has had a PEG tube placed, hysterectomy, carotid endarterectomy and cardi ac catheterization. ALLERGIES: PENICILLIN and SULFA. FAMILY HISTORY: Significant for stroke. SOCIAL HISTORY: She is a former heavy smoker at least a pack a day for many years. Denies any alcoh ol or drug use. Her surrogate decision maker is her daughter and her CODE STATUS is FULL CODE. MEDICATIONS: Taken from her recent discharge summary and includes clonidine 0.1 mg t.i.d. as needed, Plavix 75 mg daily, donepezil 5 mg at bedtime, furosemide 20 mg daily, leflunomide 20 mg daily, meth ylprednisolone 2 mg daily, metoprolol 50 mg daily, Macrobid 100 mg twice a day, quetiapine 10 mg jaret y, risedronate 35 mg every 7 days, simvastatin 40 mg at bedtime. PHYSICAL EXAMINATION: GENERAL: The patient is awake and alert. I cannot assess orientation as she is basically nonverbal. VITAL SIGNS: Blood pressure was 142/87, heart rate 90, respiratory rate of 18, temperature is 98.4. HEENT: Pupils are equal, round, and reactive. Extraocular muscles are intact. Her sclerae are anic teric. Throat: There is no erythema, no exudates. NECK: No adenopathy, no bruits. LUNGS: She has got bilateral rhonchi, no wheezing. CARDIOVASCULAR: She has a normal S1, S2. There is no S3 or S4. No murmurs, clicks or rubs. ABDOMEN: Obese, it is soft. She does have some generalized tenderness. There is no rebound or guar ding. EXTREMITIES: There is no edema. NEUROLOGIC: She has a left-sided weakness. She is able to move both her left upper and lower extrem ity, but it is significantly weaker than that of the right. LABORATORY RESULTS: Sodium is 135, potassium 4.0, chloride is 98, CO2 is 27, BUN of 23, creatinine 0 .98, glucose is 128. White blood cell count is 10.4, hemoglobin 13.4, hematocrit is 41.3, platelet c ount is 235. Urinalysis is pending. Chest x-ray again shows a right lower lobe infiltrate. ASSESSMENT AND PLAN: This is a pleasant 71-year-old female who was brought to the hospital due to le thargy. I suspect this is likely due to the pneumonia which is suspicious for healthcare-associated pneumonia. She will be admitted to the stroke unit due to her recent stroke and there was some lucho rn for re-infarction. She will be placed on Levaquin and vancomycin for healthcare-associated pneumo yeison. We will get neuro checks q.4 hours and repeat an MRI in the a.m. We will need to verify and re concile her home medications for hypertension and diabetes. These will be restarted as well as slidi ng scale insulin, and p.r.n. medications for elevated blood pressure. Continue physical therapy and occupational therapy and place her on deep venous thrombosis as well as gastrointestinal prophylaxis.
[2017-06-30] MEDS ORDERED: Cefepime 2 GM/10 ML SYR ONE (19:15)
[2017-06-30 20:14] LABS: Troponin I 0.111 ng/mL (< 0.028)
[2017-06-30] MEDS ORDERED: Ondansetron HCl/PF 4 MG/2 ML Vial IVP PRN (22:02)
[2017-06-30] MEDS ORDERED: Acetaminophen 325 MG TAB PER TUBE PRN (22:02)
[2017-06-30] MEDS ORDERED: Dextrose 5% in Water 1,000 ML IV PRN (22:02)
[2017-06-30] MEDS ORDERED: cloNIDine 0.1 MG TAB PER TUBE PRN (22:02)
[2017-06-30] MEDS ORDERED: Ondansetron ODT 4 MG TAB PER TUBE PRN (22:02)
[2017-06-30] MEDS ORDERED: HumaLOG 300 UNITS/3 ML VIAL SC PRN ×2 (22:02)
[2017-06-30] MEDS ORDERED: Dextrose 50% Abboject 50 ML SYRINGE SLOW IVP PRN (22:02)
[2017-06-30] MEDS ORDERED: hydrALAZINE 20 MG/ML VIAL SLOW IVP PRN (22:02)
[2017-06-30] MEDS ORDERED: Famotidine 20 MG TAB PER TUBE SCH (22:15)
[2017-06-30] MEDS ORDERED: Donepezil HCl 5 MG TAB PER TUBE SCH (22:30)
[2017-06-30] MEDS ORDERED: Simvastatin 40 MG TAB PER TUBE SCH (22:30)
[2017-06-30 22:44] LABS: Troponin I 0.096 ng/mL (< 0.028)
[2017-06-30] MEDS: Sodium Chloride 0.9% 1,000 ML IV SCH (23:09)
[2017-07-01 05:54] LABS: #Eosinphils 0.1 thou/uL (0.0-0.7); #Lymphocytes 1.5 thou/uL (1.20-3.40); #Monocytes 0.3 thou/uL (0.11-0.59); #Neutrophils 6.6 thou/uL (1.40-6.50); %Basophils 0.5 % (0.0-1.0); %Eosinophils 1.3 % (0.0-10.0); %Lymphocytes 17.6 % (21.0-51.0); %Neutrophils 76.5 % (42.0-75.0); Hemoglobin 11.3 g/dL (12.0-16.0); Mean Corpuscular HGB CONC 32.1 g/dL (32.0-36.0); Mean Corpuscular Hemoglobin 29.1 pg (27.0-31.0); Mean Corpuscular Volume 90.6 fl (81.0-99.0); Mean Platelet Volume 9.7 fL (7.4-10.4); Platelet Count 188 thou/uL (130-400); RBC Distribution Width 13.5 % (11.5-14.5); Red Blood Cell (RBC) Count 3.89 mill/uL (4.20-5.40); White Blood Cell (WBC) Count 8.7 thou/uL (4.8-10.8)
[2017-07-01 06:06] LABS: Anion Gap 11 mmol/L (10-20); BUN (Urea Nitrogen) 20 mg/dL (9.8-20.1); Calc. Creatinine Clearance 71 mL/min (70-130); Calcium 8.8 mg/dL (7.8-10.44); Carbon Dioxide 27 mmol/L (23-31); Chloride 102 mmol/L (98-107); Estimated GFR-MDRD 63; Glucose 96 mg/dL (83-110); Potassium 3.7 mmol/L (3.5-5.1); Sodium 136 mmol/L (136-145)
[2017-07-01] MEDS ORDERED: Vancomycin HCl 1 GM in Premix Bag 1 BAG IVPB SCH (08:00)
[2017-07-01] MEDS: methylPREDNISolone 4 mg Tablet PER TUBE SCH (08:38)
[2017-07-01] MEDS: Famotidine 20 MG TAB PER TUBE SCH ×2 (08:38→21:18)
[2017-07-01] MEDS: Metoprolol Tartrate 50 MG TAB PER TUBE SCH (08:38)
[2017-07-01] MEDS: Enoxaparin Sodium 40 MG/0.4 ML SYRINGE SC SCH (08:38)
[2017-07-01] MEDS: Leflunomide 10 mg Tablet PO SCH (08:38)
[2017-07-01] MEDS: Clopidogrel Bisulfate 75 MG TAB PER TUBE SCH (08:38)
[2017-07-01] MEDS ORDERED: Vancomycin HCl 1.25 GM, Admixture Fee 1 EACH in Sodium Chloride 0.9% 250 ML 250 ML IVPB SCH (13:00)
--- NOTE | 2017-07-01 13:48 | PDOC.PN ---
- Subjective Encounter Start Date: 07/01/17 Encounter Start Time: 10:45 Subjective: pt up bed more awake, son at bedside. - Objective Resuscitation Status: Resuscitation Status FULL:Full Resuscitation MAR Reviewed: Yes Vital Signs & Weight: Vital Signs (12 hours) Temp Pulse Resp BP Pulse Ox 07/01/17 13:33 80 20 96 07/01/17 11:51 98.4 F 67 20 97/69 93 L 07/01/17 08:00 98.4 F 75 20 109/62 07/01/17 04:00 98.4 F 82 18 108/62 92 L Weight Admit Weight 175 lb 1.6 oz Weight 168 lb 9.6 oz I&O: 06/30/17 07/01/17 07/02/17 06:59 06:59 06:59 Intake Total 140 Balance 140 Result Diagrams: 07/01/17 05:08 07/01/17 05:08 Additional Labs: Accuchecks 07/01/17 07/01/17 07/01/17 11:17 06:04 01:12 POC Glucose 126 H 107 99 Phys Exam - Physical Examination Respiratory: no wheezing, no rales, wheezing present Cardiovascular: RRR, no significant murmur Gastrointestinal: soft, non-tender (pt has a peg tube) Neurological: normal sensation (pt is unable to move her left upper and lower ext) Psychiatric: normal affect, A&O x 3 Dx/Plan (1) Acute metabolic encephalopathy Code(s): G93.41 - METABOLIC ENCEPHALOPATHY Status: Acute Plan: most likely due to possible aspiration vs hospital acquired pneumonia. pt on levquin and on vanco. pt is doing well. pharmacy consulted for vancomycin dosing. (2) Dysphagia as late effect of cerebrovascular accident (CVA) Code(s): I69.391 - DYSPHAGIA FOLLOWING CEREBRAL INFARCTION Status: Acute Plan: will start pt on peg tube feeding Comment: Remains NPO. pt to get peg tube feeding (3) Acute right MCA stroke Code(s): I63.511 - CEREB INFRC D/T UNSP OCCLS OR STENOS OF RIGHT MID CEREB ART Status: Acute Plan: pt's repeat ct scan was unchanged. MRI is pending Comment: Unchanged. No new deficits. Continue with ST, PT, OT - Plan * .
--- NOTE | 2017-07-01 13:50 | MRI ---
MRI BRAIN WITHOUT CONTRAST: HISTORY: Increased lethargy following CVA. COMPARISON: None. TECHNIQUE: Multiplanar, multisequence MR images are obtained of the brain without contrast. FINDINGS: There is an evolving infarction in the right MCA distribution. The area of restricted diffusion is u ndergoing transformation to a T2 shine-through, although there are still some areas of restricted dif fusion within the MCA distribution. There is stable encephalomalacia in the right cerebellar hemisph ere from a remote infarction. This area does not demonstrate restricted diffusion. The area of infa rction is similar in size, compared to the prior examination. No intracranial hemorrhage is seen. T here is an area of susceptibility artifact near the left internal carotid artery, which is nonspecifi c. The expected flow voids are present. No midline shift is seen. The corpus callosum, pituitary, and craniocervical junction are unremarkable. The calvarium and overlying soft tissues are unremarkable. Mucosal thickening is seen in the left ma xillary sinus. The mastoid air cells are opacified bilaterally. IMPRESSION: Evolving right middle cerebral artery distribution infarction. No acute change is seen compared to t he prior examination. POS: [facility] [place]
[2017-07-01 15:48] LABS: Bilirubin Negative (Negative); Blood, Urine Negative (Negative); Clarity CLEAR (Clear); Glucose, Urine (Dipstick) Negative (Negative); Leukocyte Negative (Negative); Nitrite Negative (Negative); Protein, Urine (Dipstick) Negative (Neg-Trace); Specific Gravity, Urine 1.011 (1.002-1.036); Urobilinogen 0.2 mg/dL (0.2-1.0)
[2017-07-01 15:51] LABS: Bacteria/HPF None Seen HPF (None Seen); Hyaline Casts/LPF 0-3 HYALINE CAST LPF (0-3 Hyaline); Pathc Cast-AUWi Flag 0.27 (0-2.49); RBC/HPF 0-3 HPF (0-3); Squamous Epithelial 0-3 HPF (0-3); WBC/HPF 0-3 HPF (0-3)
[2017-07-01] MEDS: Sodium Chloride 0.9% 1,000 ML IV SCH (16:10)
[2017-07-01] MEDS: Simvastatin 40 MG TAB PER TUBE SCH (21:18)
[2017-07-01] MEDS: Donepezil HCl 5 MG TAB PER TUBE SCH (21:18)
[2017-07-02] MEDS: Sodium Chloride 0.9% 1,000 ML IV SCH ×2 (04:01→17:39)
[2017-07-02] MEDS: Clopidogrel Bisulfate 75 MG TAB PER TUBE SCH (09:23)
[2017-07-02] MEDS: Metoprolol Tartrate 50 MG TAB PER TUBE SCH (09:23)
[2017-07-02] MEDS: Leflunomide 10 mg Tablet PO SCH (09:23)
[2017-07-02] MEDS: Famotidine 20 MG TAB PER TUBE SCH ×2 (09:24→22:24)
[2017-07-02] MEDS: Enoxaparin Sodium 40 MG/0.4 ML SYRINGE SC SCH (09:24)
[2017-07-02 09:27] LABS: Anion Gap 6 mmol/L (10-20); BUN (Urea Nitrogen) 19 mg/dL (9.8-20.1); Calc. Creatinine Clearance 76 mL/min (70-130); Calcium 8.2 mg/dL (7.8-10.44); Carbon Dioxide 28 mmol/L (23-31); Chloride 108 mmol/L (98-107); Estimated GFR-MDRD 66; Glucose 124 mg/dL (83-110); Potassium 3.4 mmol/L (3.5-5.1); Sodium 139 mmol/L (136-145)
[2017-07-02] MEDS: Vancomycin HCl 1.25 GM, Admixture Fee 1 EACH in Sodium Chloride 0.9% 250 ML 250 ML IVPB SCH (09:29)
[2017-07-02] MEDS: methylPREDNISolone 4 mg Tablet PER TUBE SCH (09:29)
[2017-07-02 09:30] LABS: Band 9 % (5-11); Eosinophils 14 % (0-10); Lymphocytes 31 % (21-51); MDiff Complete? YES; Mean Corpuscular HGB CONC 31.9 g/dL (32.0-36.0); Mean Corpuscular Volume 91.1 fl (81.0-99.0); Mean Platelet Volume 9.4 fL (7.4-10.4); Monocytes 5 % (0-10); Neutrophil 40 % (42-75); Platelet Count 166 thou/uL (130-400); Polychromasia SLIGHT = 2-3 cells (100X) (0-2/hpf); RBC Distribution Width 13.7 % (11.5-14.5); Reactive Lymphocytes 1 % (0-10); Red Blood Cell (RBC) Count 3.43 mill/uL (4.20-5.40); White Blood Cell (WBC) Count 5.7 thou/uL (4.8-10.8)
--- NOTE | 2017-07-02 16:03 | PDOC.PN ---
- Subjective Encounter Start Date: 07/02/17 Encounter Start Time: 13:00 Subjective: pt up in bed denies any complains - Objective Resuscitation Status: Resuscitation Status FULL:Full Resuscitation Vital Signs & Weight: Vital Signs (12 hours) Temp Pulse Pulse Pulse Resp BP BP 07/02/17 13:57 62 16 07/02/17 12:07 64 117/60 07/02/17 11:51 98.7 F 60 14 07/02/17 08:59 98.6 F 74 16 07/02/17 08:30 98.6 F 74 16 07/02/17 08:27 07/02/17 08:24 61 16 07/02/17 08:05 70 101/60 07/02/17 08:00 98.6 F 74 16 07/02/17 04:10 98.5 F 79 20 BP Pulse Ox Pulse Ox 07/02/17 13:57 07/02/17 12:07 96 07/02/17 11:51 126/62 99 07/02/17 08:59 74 L 07/02/17 08:30 101/60 93 L 07/02/17 08:27 97 07/02/17 08:24 07/02/17 08:05 07/02/17 08:00 101/60 93 L 07/02/17 04:10 133/71 Weight Admit Weight 175 lb 1.6 oz Weight 176 lb 14.4 oz I&O: 07/01/17 07/02/17 07/03/17 06:59 06:59 06:59 Intake Total 140 1676 425 Output Total 1 Balance 140 1675 425 Result Diagrams: 07/02/17 08:58 07/02/17 08:58 Additional Labs: Accuchecks 07/02/17 07/02/17 07/02/17 11:11 05:04 00:13 POC Glucose 94 90 113 H 07/01/17 17:13 POC Glucose 127 H Phys Exam - Physical Examination HEENT: PERRLA Neck: no nodes Respiratory: no wheezing, no rales Cardiovascular: RRR, no significant murmur Gastrointestinal: soft, non-tender Musculoskeletal: no edema, pulses present Neurological: non-focal Psychiatric: normal affect Dx/Plan (1) Acute metabolic encephalopathy Code(s): G93.41 - METABOLIC ENCEPHALOPATHY Status: Acute Plan: most likely due to pna, improving (2) Dysphagia as late effect of cerebrovascular accident (CVA) Code(s): I69.391 - DYSPHAGIA FOLLOWING CEREBRAL INFARCTION Status: Acute Plan: pt's peg feeding started Comment: Remains NPO. pt to get peg tube feeding (3) Acute right MCA stroke Code(s): I63.511 - CEREB INFRC D/T UNSP OCCLS OR STENOS OF RIGHT MID CEREB ART Status: Acute Plan: continue home meds Comment: Unchanged. No new deficits. Continue with ST, PT, OT (4) Pneumonia Code(s): J18.9 - PNEUMONIA, UNSPECIFIED ORGANISM Status: Acute Qualifiers: Pneumonia type: aspiration pneumonia Laterality: right Lung location: lower lobe of lung Plan: will continue current tx, not sure if aspiration vs hospital acquired. (5) Pneumonia Code(s): J18.9 - PNEUMONIA, UNSPECIFIED ORGANISM Status: Acute (6) Tachycardia Code(s): R00.0 - TACHYCARDIA, UNSPECIFIED Status: Acute (7) Tachycardia Code(s): R00.0 - TACHYCARDIA, UNSPECIFIED Status: Acute Plan: pt had 15beats of atrial tachycardia. electrolytes checked pt's potassium was low will also add magnesium - Plan * .
[2017-07-02] MEDS: Donepezil HCl 5 MG TAB PER TUBE SCH (22:24)
[2017-07-02] MEDS: Simvastatin 40 MG TAB PER TUBE SCH (22:25)
[2017-07-03 05:43] LABS: Anion Gap 9 mmol/L (10-20); BUN (Urea Nitrogen) 17 mg/dL (9.8-20.1); Calc. Creatinine Clearance 78 mL/min (70-130); Calcium 8.2 mg/dL (7.8-10.44); Carbon Dioxide 25 mmol/L (23-31); Chloride 111 mmol/L (98-107); Estimated GFR-MDRD 69; Glucose 91 mg/dL (83-110); Magnesium 2.1 mg/dL (1.6-2.6); Potassium 3.9 mmol/L (3.5-5.1); Sodium 141 mmol/L (136-145)
[2017-07-03 06:13] LABS: Band 5 % (5-11); Eosinophils 3 % (0-10); Lymphocytes 32 % (21-51); MDiff Complete? YES; Mean Corpuscular HGB CONC 32.1 g/dL (32.0-36.0); Mean Corpuscular Hemoglobin 29.5 pg (27.0-31.0); Mean Corpuscular Volume 91.7 fl (81.0-99.0); Mean Platelet Volume 9.6 fL (7.4-10.4); Monocytes 4 % (0-10); Neutrophil 56 % (42-75); Platelet Count 166 thou/uL (130-400); RBC Distribution Width 13.8 % (11.5-14.5); Red Blood Cell (RBC) Count 3.38 mill/uL (4.20-5.40); White Blood Cell (WBC) Count 6.3 thou/uL (4.8-10.8)
[2017-07-03] MEDS: Sodium Chloride 0.9% 1,000 ML IV SCH ×2 (07:40→16:47)
[2017-07-03 08:34] LABS: Vancomycin, Trough 12.1 ug/mL
[2017-07-03] MEDS: Famotidine 20 MG TAB PER TUBE SCH ×2 (09:00→22:15)
[2017-07-03] MEDS: Clopidogrel Bisulfate 75 MG TAB PER TUBE SCH (09:00)
[2017-07-03] MEDS: Enoxaparin Sodium 40 MG/0.4 ML SYRINGE SC SCH (09:00)
[2017-07-03] MEDS ORDERED: Linezolid 600 MG TAB PO SCH (09:00)
[2017-07-03] MEDS: Metoprolol Tartrate 50 MG TAB PER TUBE SCH (09:01)
[2017-07-03] MEDS: Leflunomide 10 mg Tablet PO SCH (09:01)
[2017-07-03] MEDS: methylPREDNISolone 4 mg Tablet PER TUBE SCH (09:01)
[2017-07-03] MEDS: Vancomycin HCl 1.25 GM, Admixture Fee 1 EACH in Sodium Chloride 0.9% 250 ML 250 ML IVPB SCH (09:19)
--- NOTE | 2017-07-03 16:00 | PDOC.PN ---
- Subjective Encounter Start Date: 07/03/17 Encounter Start Time: 10:15 Subjective: pt up in bed appears upset - Objective Resuscitation Status: Resuscitation Status FULL:Full Resuscitation Vital Signs & Weight: Vital Signs (12 hours) Temp Pulse Pulse Pulse Resp BP BP 07/03/17 15:29 98.0 F 75 20 07/03/17 14:18 72 16 07/03/17 13:00 65 74 178/77 H 142/83 H 07/03/17 11:47 97.3 F L 69 20 07/03/17 08:00 97.9 F 81 20 07/03/17 07:52 97.9 F 81 20 07/03/17 07:01 07/03/17 06:58 73 16 07/03/17 06:37 98.2 F 78 14 BP Pulse Ox 07/03/17 15:29 94/55 L 96 07/03/17 14:18 07/03/17 13:00 07/03/17 11:47 127/78 96 07/03/17 08:00 100 07/03/17 07:52 115/72 100 07/03/17 07:01 98 07/03/17 06:58 07/03/17 06:37 158/79 H 94 L Weight Admit Weight 175 lb 1.6 oz Weight 183 lb I&O: 07/02/17 07/03/17 07/04/17 06:59 06:59 06:59 Intake Total 1676 3854 Output Total 1 Balance 1675 3854 Result Diagrams: 07/03/17 04:51 07/03/17 04:51 Additional Labs: Accuchecks 07/03/17 07/02/17 07/02/17 06:36 23:44 17:33 POC Glucose 91 135 H 132 H Phys Exam - Physical Examination HEENT: PERRLA Neck: no nodes Respiratory: no wheezing, no rales Cardiovascular: RRR, no significant murmur Gastrointestinal: soft, non-tender Musculoskeletal: edema present (left lower leg) Neurological: normal sensation (left side flaccid) Dx/Plan (1) Acute metabolic encephalopathy Code(s): G93.41 - METABOLIC ENCEPHALOPATHY Status: Acute Plan: pt is more awake, most likely due to pna (2) Dysphagia as late effect of cerebrovascular accident (CVA) Code(s): I69.391 - DYSPHAGIA FOLLOWING CEREBRAL INFARCTION Status: Acute Comment: Remains NPO. pt to get peg tube feeding (3) Acute right MCA stroke Code(s): I63.511 - CEREB INFRC D/T UNSP OCCLS OR STENOS OF RIGHT MID CEREB ART Status: Acute Comment: Unchanged. No new deficits. Continue with ST, PT, OT (4) Pneumonia Code(s): J18.9 - PNEUMONIA, UNSPECIFIED ORGANISM Status: Acute Qualifiers: Pneumonia type: due to methicillin-resistant Staphylococcus aureus (MRSA) Laterality: right Lung location: lower lobe of lung Qualified Code(s): J15.212 - Pneumonia due to Methicillin resistant Staphylococcus aureus Plan: possible aspiration vs hospital acquired. Comment: will continue current abx but on discharge will get po levaquin and oral zyvox (5) Tachycardia Code(s): R00.0 - TACHYCARDIA, UNSPECIFIED Status: Acute (6) Tachycardia Code(s): R00.0 - TACHYCARDIA, UNSPECIFIED Status: Acute - Plan * .
[2017-07-03] MEDS: Cefdinir 300 MG CAP PO SCH (22:15)
[2017-07-03] MEDS: Donepezil HCl 5 MG TAB PER TUBE SCH (22:15)
[2017-07-03] MEDS: Simvastatin 40 MG TAB PER TUBE SCH (22:15)
[2017-07-04 06:21] LABS: Anion Gap 10 mmol/L (10-20); BUN (Urea Nitrogen) 12 mg/dL (9.8-20.1); Calc. Creatinine Clearance 97 mL/min (70-130); Calcium 8.6 mg/dL (7.8-10.44); Carbon Dioxide 24 mmol/L (23-31); Chloride 112 mmol/L (98-107); Estimated GFR-MDRD 81; Glucose 93 mg/dL (83-110); Potassium 3.8 mmol/L (3.5-5.1); Sodium 142 mmol/L (136-145)
[2017-07-04] MEDS: Sodium Chloride 0.9% 1,000 ML IV SCH ×2 (06:35→17:54)
[2017-07-04] MEDS: Leflunomide 10 mg Tablet PO SCH (08:33)
[2017-07-04] MEDS: Cefdinir 300 MG CAP PO SCH ×2 (08:33→22:02)
[2017-07-04] MEDS: Clopidogrel Bisulfate 75 MG TAB PER TUBE SCH (08:34)
[2017-07-04] MEDS: methylPREDNISolone 4 mg Tablet PER TUBE SCH (08:34)
[2017-07-04] MEDS: Famotidine 20 MG TAB PER TUBE SCH ×2 (08:35→22:02)
[2017-07-04] MEDS: Metoprolol Tartrate 50 MG TAB PER TUBE SCH (08:36)
[2017-07-04] MEDS: Enoxaparin Sodium 40 MG/0.4 ML SYRINGE SC SCH (08:42)
[2017-07-04] MEDS: Vancomycin HCl 1.25 GM, Admixture Fee 1 EACH in Sodium Chloride 0.9% 250 ML 250 ML IVPB SCH (09:22)
[2017-07-04 14:36] VITALS: BMI 33.0
--- NOTE | 2017-07-04 17:21 | PDOC.PN ---
- Subjective Encounter Start Date: 07/04/17 Encounter Start Time: 10:00 Subjective: pt up in bed no complains - Objective Resuscitation Status: Resuscitation Status FULL:Full Resuscitation Vital Signs & Weight: Vital Signs (12 hours) Temp Pulse Pulse Pulse Resp BP BP 07/04/17 16:00 97.8 F 80 16 07/04/17 13:48 76 67 147/70 H 152/84 H 07/04/17 13:42 72 16 07/04/17 12:00 98.4 F 70 20 07/04/17 08:00 98.4 F 70 20 07/04/17 07:50 98.3 F 90 18 07/04/17 07:33 07/04/17 07:30 70 16 BP Pulse Ox 07/04/17 16:00 185/77 H 95 07/04/17 13:48 07/04/17 13:42 07/04/17 12:00 144/81 H 96 07/04/17 08:00 94 L 07/04/17 07:50 192/87 H 94 L 07/04/17 07:33 95 07/04/17 07:30 Weight Admit Weight 175 lb 1.6 oz Weight 192 lb 14.4 oz I&O: 07/03/17 07/04/17 07/05/17 06:59 06:59 06:59 Intake Total 3854 3509 Balance 3854 3509 Result Diagrams: 07/03/17 04:51 07/04/17 04:46 Additional Labs: Accuchecks 07/04/17 07/04/17 07/03/17 06:15 00:24 18:15 POC Glucose 95 125 H 121 H 07/03/17 11:14 POC Glucose 123 H Phys Exam - Physical Examination HEENT: PERRLA Neck: no nodes Respiratory: no wheezing Cardiovascular: RRR, no significant murmur Gastrointestinal: soft, non-tender Musculoskeletal: no edema Deviation from normal: pt has left side flaccid Dx/Plan (1) Acute metabolic encephalopathy Code(s): G93.41 - METABOLIC ENCEPHALOPATHY Status: Acute Plan: resolved most likely due to pna (2) Dysphagia as late effect of cerebrovascular accident (CVA) Code(s): I69.391 - DYSPHAGIA FOLLOWING CEREBRAL INFARCTION Status: Acute Comment: Remains NPO. pt to get peg tube feeding (3) Acute right MCA stroke Code(s): I63.511 - CEREB INFRC D/T UNSP OCCLS OR STENOS OF RIGHT MID CEREB ART Status: Acute Comment: Unchanged. No new deficits. Continue with ST, PT, OT (4) Pneumonia Code(s): J18.9 - PNEUMONIA, UNSPECIFIED ORGANISM Status: Acute Qualifiers: Pneumonia type: due to methicillin-resistant Staphylococcus aureus (MRSA) Laterality: right Lung location: lower lobe of lung Qualified Code(s): J15.212 - Pneumonia due to Methicillin resistant Staphylococcus aureus Plan: continue current tx Comment: will continue current abx but on discharge will get po levaquin and oral zyvox (5) Tachycardia Code(s): R00.0 - TACHYCARDIA, UNSPECIFIED Status: Acute (6) Tachycardia Code(s): R00.0 - TACHYCARDIA, UNSPECIFIED Status: Acute - Plan * .
[2017-07-04] MEDS: Donepezil HCl 5 MG TAB PER TUBE SCH (22:02)
[2017-07-04] MEDS: Simvastatin 40 MG TAB PER TUBE SCH (22:02)
[2017-07-05 08:46] LABS: Vancomycin, Trough 13.9 ug/mL
[2017-07-05] MEDS ORDERED: Vancomycin HCl 1.5 GM in Sodium Chloride 0.9% 250 ML 300 ML IVPB SCH (09:00)
[2017-07-05] MEDS: Sodium Chloride 0.9% 1,000 ML IV SCH (09:30)
[2017-07-05] MEDS: Enoxaparin Sodium 40 MG/0.4 ML SYRINGE SC SCH (09:35)
[2017-07-05] MEDS: Cefdinir 300 MG CAP PO SCH (09:36)
[2017-07-05] MEDS: Clopidogrel Bisulfate 75 MG TAB PER TUBE SCH (09:36)
[2017-07-05] MEDS: Leflunomide 10 mg Tablet PO SCH (09:36)
[2017-07-05] MEDS: Famotidine 20 MG TAB PER TUBE SCH (09:36)
[2017-07-05] MEDS: methylPREDNISolone 4 mg Tablet PER TUBE SCH (09:36)
[2017-07-05] MEDS: Metoprolol Tartrate 50 MG TAB PER TUBE SCH (09:37)
[2017-07-05 11:47] VITALS: TEMP 98.4
[2017-07-05 15:33] VITALS: BP 151/75
--- NOTE | 2017-07-05 18:15 | DIS ---
DATE OF ADMISSION: 06/30/2017 DATE OF DISCHARGE: 07/05/2017 DISPOSITION: Discharged to inpatient rehabilitation. DISCHARGE CONDITION: The patient was stable. DISCHARGE MEDICATIONS: As following Seroquel 50 mg b.i.d., furosemide 40 mg daily, risedronate of 35 mg every 7 days, Plavix 75 mg daily, clonidine 0.1 mg t.i.d. p.r.n., Zocor 40 mg at bedtime, metopro lol 50 mg daily, Arava 20 mg daily, Aricept 5 mg at bedtime, prednisone 2 mg daily, lisinopril 40 mg daily, Zyvox 600 mg q.12 hours, and Omnicef 300 mg b.i.d. DISCHARGE DIAGNOSES: 1. Pneumonia, hospital-acquired pneumonia. 3. Cerebrovascular accident with left-sided weakness. 3. History of rheumatoid arthritis. 4. Type 2 diabetic. 5. Hyperlipidemia. 6. Hypertension. DISCHARGE SUMMARY: The patient is a very pleasant 71-year-old female, who recently suffered a large right MCA infarct and was in the rehab. She is currently on PEG tube with PEG feeding per gastrostom y tube. She initially presented to the hospital with altered mental status. The patient underwent a n x-ray, which indicated right lower lobe infiltrate, which could be possible aspiration versus hospi irais-acquired pneumonia. Patient's blood cultures were negative. Urine culture indicated 50,000 colon ies of E. coli. The patient was unable to produce any sputum. Patient was initially treated with br oad spectrum antibiotics including vancomycin and Levaquin, which was tapered down to Zyvox and Omnic ef. The patient will finish 10 days of antibiotics. Her mentation continued to improve. On dischar ge, the patient was awake, alert, and oriented and back to her baseline. The patient will be dischar ged to an inpatient facility and on discharge, the patient's labs also have been stable. Vital signs are also stable. There was an incident where the patient's daughter was really upset, wanting to day ve a barium swallow done in the hospital. On the day of discharge, I reassured her that will be an o ngoing process that could be carried on at the rehab facility for continuing reevaluating the patient .
== END 2017-07-05 14:31 | DRG 177 ==
LOC: ERS 15:27 → 2SE 19:11
PROVIDERS: ADMIT Internal Medicine; ATTEND Internal Medicine
DX: J15.212 Pneumonia due to Methicillin resistant Staphylococcus aureus (principal); G93.41 Metabolic encephalopathy; I69.354 Hemiplegia and hemiparesis following cerebral infarction affecting left non-dominant side; E11.9 Type 2 diabetes mellitus without complications; I69.391 Dysphagia following cerebral infarction; R00.0 Tachycardia, unspecified; Z79.4 Long term (current) use of insulin; I10 Essential (primary) hypertension; M06.9 Rheumatoid arthritis, unspecified; E78.5 Hyperlipidemia, unspecified
CPT/HCPCS: 36415; 36416; 51701; 70551; 71045; 80048; 80202; 81001; 81003; 82550; 83690; 83735; 85007; 85025; 85027; 87040; 87077; 87086; 87186; 93005; 94640; 94760; 96365; 96367; 96375; 99406; A4353; G8978-GP-CL; G8979-GP-CJ; G8987-GO-CM; G8988-GO-CK; J0360; J0692; J1650; J1956; J3370; J7050; J7620

== ENCOUNTER 2017-07-21 14:57 | Outpatient (CLI) | payer MEDICARE, MEDICAID ==
--- NOTE | 2017-07-21 17:37 | CT ---
CT OF HEAD NONCONTRAST: History: Stroke, altered mental status. Comparison: 06-30-17 FINDINGS: Interval revolution of large right MCA distribution with a prominent sized region of cystic encephalo malacia. There is associated vacuo dilatation of the right lateral ventricle. Multifocal cavitary lac unar infarctions are redemonstrated, bilaterally. Within the supratentorial brain as well as involvin g right cerebellar hemisphere. There is opacification as well as wall thickening of the partially mikki ged left maxillary sinus. No intracranial hemorrhage or mass effect. IMPRESSION: 1. Multifocal chronic infarctions. 2. No acute intracranial mass effect. POS: [facility]
--- NOTE | 2017-07-21 17:43 | RAD ---
TWO VIEW CHEST RADIOGRAPHIC SERIES: Date: 07-21-17 Comparison: 06-07-17 Clinical history: Cough. FINDINGS: There is left basilar opacity. Cardiac silhouette is mildly enlarged. No significant vascular congest ion. No obvious effusion or discrete pneumothorax. Vascular calcification and osseous degenerative ch alma rosa is present. IMPRESSION: Findings consistent with left lower lobe pneumonia. Recommend follow up two view chest series upon co mpletion of treatment regime to confirm resolution of findings. Code T POS: [facility]
== END 2017-07-21 14:58 | disposition home or self-care (01) ==
LOC: CT 14:57
PROVIDERS: ATTEND Physical Medicine & Rehabilitation
DX: I10 Essential (primary) hypertension (principal); R13.10 Dysphagia, unspecified; G93.41 Metabolic encephalopathy; I63.9 Cerebral infarction, unspecified
CPT/HCPCS: 70450; 71046

== ENCOUNTER 2017-08-05 23:32 | Emergency (ER) | payer MEDICARE, MEDICAID ==
[2017-08-06 01:01] LABS: #Basophils 0.1 thou/uL (0.0-0.2); #Eosinphils 0.1 thou/uL (0.0-0.7); #Monocytes 0.7 thou/uL (0.11-0.59); #Neutrophils 3.6 thou/uL (1.40-6.50); %Basophils 0.8 % (0.0-1.0); %Lymphocytes 31.1 % (21.0-51.0); %Monocytes 10.5 % (0.0-10.0); %Neutrophils 56.6 % (42.0-75.0); Hemoglobin 10.5 g/dL (12.0-16.0); Mean Corpuscular HGB CONC 31.7 g/dL (32.0-36.0); Mean Corpuscular Hemoglobin 28.6 pg (27.0-31.0); Mean Corpuscular Volume 90.2 fl (81.0-99.0); Mean Platelet Volume 9.3 fL (7.4-10.4); Platelet Count 195 thou/uL (130-400); RBC Distribution Width 13.9 % (11.5-14.5); Red Blood Cell (RBC) Count 3.66 mill/uL (4.20-5.40); White Blood Cell (WBC) Count 6.4 thou/uL (4.8-10.8)
[2017-08-06 01:30] LABS: ALT (SGPT) 7 U/L (8-55); AST (SGOT) 16 U/L (5-34); Albumin 3.4 g/dL (3.4-4.8); Alkaline Phosphatase 104 U/L (40-150); Anion Gap 11 mmol/L (10-20); BUN (Urea Nitrogen) 9 mg/dL (9.8-20.1); Bilirubin, Total 0.5 mg/dL (0.2-1.2); Calc. Creatinine Clearance 0 mL/min (70-130); Calcium 9.8 mg/dL (7.8-10.44); Carbon Dioxide 32 mmol/L (23-31); Chloride 100 mmol/L (98-107); Estimated GFR-MDRD 61; Globulin 3.1 g/dL (2.4-3.5); Glucose 106 mg/dL (83-110); Potassium 3.3 mmol/L (3.5-5.1); Protein, Total 6.5 g/dL (6.0-8.3); Sodium 140 mmol/L (136-145)
--- NOTE | 2017-08-06 08:15 | CT ---
PRELIMINARY REPORT/[facility]/EMERGENCY AFTER HOURS PROCEDURE: Addendum created by Ani Burgos MD on 08/06/2017 2:21 AM Central Time ([place] & [place]) THIS REPORT CONTAINS FINDINGS THAT MAY BE CRITICAL TO PATIENT CARE. The findings were verbally commun icated via telephone conference with SHLOMO Feliz at 2:14 AM CDT on 08/06/2017. The findings were acknowledged and understood. Initial Report created on 08/06/2017 2:21 AM Central Time ([place] & [place]) EXAM: CT Abdomen and Pelvis With Intravenous Contrast EXAM DATE/TIME: 08/06/2017 1:17 AM CLINICAL HISTORY: 71 years old, female; Condition or disease; Other: Non funtioning peg tube; Patient HX: F71 presents to ed from [facility] C/O peg tube malfunction. Pt had peg tube placed x 2 days ago. 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 Until then, operation was nrml. Pt had feeding earlier t efrain. Pt denies pain. No other complaints. Pt reports peg tube placed as she was not eating due to lo ss of appetite. HX bipolar disorder, depression. TECHNIQUE: Axial computed tomography images of the abdomen and pelvis with intravenous contrast. All CT scans at this facility use one or more dose reduction techniques, viz.: automated exposure control; ma/kV adj ustment per patient size (including targeted exams where dose is matched to indication; i.e. head); o r iterative reconstruction technique. Coronal reformatted images were created and reviewed. CONTRAST: 100 mL of iso 370 administered intravenously. COMPARISON: No relevant prior studies available. FINDINGS: Lower thorax: Mild bilateral lower lobe dependent air space opacity-atelectasis/scarring. Minimal lef t pleural effusion. ABDOMEN: Liver: Unremarkable. No mass. Gallbladder and bile ducts: Unremarkable. No calcified stones. No ductal dilation. Pancreas: Unremarkable. No mass. No ductal dilation. Spleen: Unremarkable. No splenomegaly. Adrenals: Unremarkable. No mass. Kidneys and ureters: Unremarkable. No solid mass. No hydronephrosis. Stomach and bowel: Moderate colonic diverticulosis particularly involving the descending-sigmoid colo n. No radiographic signs of inflammation. No obstruction. No mucosal thickening. Appendix: Visualized portions of appendix appear normal. PELVIS: Bladder: Unremarkable. No mass. Reproductive: Uterus is not identified. ABDOMEN and PELVIS: Intraperitoneal space: Left upper quadrant percutaneous gastrostomy tube balloon is within the left r ectus abdominis muscle and tip is just adjacent to small portion of the gastric fundus. Mild-moderate inflammatory changes surrounding the gastrostomy tube balloon. No evidence of intraperitoneal free ai r. No significant fluid collection. Bones/joints: Chronic degenerative changes of the lumbar spine. No acute fracture. No dislocation. Soft tissues: Mild contusion right upper anterior abdominal wall. Vasculature: Chronic atherosclerotic calcification of the vasculature. No abdominal aortic aneurysm. Lymph nodes: Unremarkable. No enlarged lymph nodes. IMPRESSION: 1. Malpositioned percutaneous gastrostomy tube with balloon in the left anterior abdominal wall muscu lature with surrounding inflammatory changes as described above. No evidence of abscess. 2. Moderate colonic diverticulosis particularly involving the descending-sigmoid colon. No radiograph ic signs of inflammation. 3. Mild bilateral lower lobe dependent air space opacity-atelectasis/scarring. Minimal left pleural e ffusion. Thank you for allowing us to participate in the care of your patient. Dictated and Authenticated by: Ani Burgos MD 08/06/2017 2:21 AM Central Time ([place] & [place]) FINAL REPORT EMERGENT AFTER HOURS CT ABDOMEN AND PELVIS WITH IV CONTRAST: Date: 08-06-17 History: PEG tube placed two days ago. PEG tube is not flushing. PEG tube malfunction. Patient with l oss of appetite. IMPRESSION: 1. Tiny left pleural effusion with bibasilar atelectasis. 2. Dense vascular calcifications seen in the visualized coronary arteries as well as involving the ab dominal aorta and iliac arteries. 3. 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 4. The lumen of the gastrostomy tube is in the left anterior abdominal wall and not positioned within the stomach. Adjacent inflammatory changes are present. No free intraperitoneal gas or free fluid is seen in the abdomen or pelvis. 5. Hysterectomy. 6. Colonic diverticulosis. 7. Degenerative changes of the spine with left convex scoliosis lumbar spine. 8. No CT evidence of appendicitis. 9. Findings are in agreement with the preliminary report by [facility]. POS: [facility]
[2017-08-06] MEDS ORDERED: ISOVUE-370 76%-LOCM 1 ML ONE (09:30)
--- NOTE | 2017-08-06 13:57 | SPC ---
GASTROSTOMY TUBE REPLACEMENT: 08/06/2017 HISTORY: The patient's gastrostomy tube was inadvertently withdrawn into the subcutaneous soft tissues. Repla cement was requested. FLUOROSCOPY: Total fluoroscopy time is 5.5 minutes with a total dose of 43,154 mGy per cm2. TECHNIQUE: After informed consent was obtained, the patient was placed on the angiography table in the supine po sition. The indwelling gastrostomy tube and surrounding area were meticulously prepped and draped in the usual sterile fashion. Contrast was unable to be injected through the gastrostomy tube. A 0.035 inch Glidewire was also ramin ble to be manipulated through the tract of the gastrostomy tube. As a result, the gastrostomy tube w as removed. A 0.035 inch Glidewire and a 5 [place] Berenstein catheter were then manipulated into the stomach. Co ntrast injection confirmed placement in the stomach. Attempts at placement of a 20 [place] gastrostomy tube were unsuccessful. A 7 mm in diameter angiopla sty balloon was then placed over the Glidewire, and track dilatation up to 7 mm, was performed. Veliz florina, again, the gastrostomy tube could not be advanced into the stomach. A 16 [place] gastrostomy tube was then placed over the Glidewire with a stiff 7 [place] dilator in plac e, and the gastrostomy tube was advanced into the stomach. The Glidewire and sheath were removed, an d the distal balloon on the gastrostomy tube was filled with 6 mL of sterile water. Contrast injecti on confirmed placement in the stomach. The gastrostomy tube was then drained and flushed. A dry, sterile dressing was placed. The patient tolerated the procedure well and without immediate complications. IMPRESSION: Technically successful replacement of gastrostomy tube. A 20 [place] gastrostomy tube was unable to b e placed and, as a result, a 16 [place] gastrostomy tube was available, which was placed within the st omach, and confirmation of placement was obtained with injection of contrast. POS: SANDIP
== END 2017-08-06 11:34 | disposition home or self-care (01) ==
LOC: ERS 23:32
DX: Z43.1 Encounter for attention to gastrostomy (principal); M06.9 Rheumatoid arthritis, unspecified; I25.10 Atherosclerotic heart disease of native coronary artery without angina pectoris; I10 Essential (primary) hypertension; E78.5 Hyperlipidemia, unspecified; F31.9 Bipolar disorder, unspecified; Z86.73 Personal history of transient ischemic attack (TIA), and cerebral infarction without residual deficits; Z79.899 Other long term (current) drug therapy
CPT/HCPCS: 43760; 74177; 80053; 85025; 87070; 87077; 87186; 87205; 99285; C1725; C1769; B4087

== ENCOUNTER 2017-09-15 12:53 | Inpatient (IN) | payer MEDICARE, MEDICAID ==
[2017-09-15 14:19] LABS: #Lymphocytes 1.5 thou/uL (1.20-3.40); #Monocytes 0.4 thou/uL (0.11-0.59); #Neutrophils 4.8 thou/uL (1.40-6.50); %Basophils 0.6 % (0.0-1.0); %Eosinophils 0.3 % (0.0-10.0); %Monocytes 6.2 % (0.0-10.0); %Neutrophils 70.9 % (42.0-75.0); Hemoglobin 12.7 g/dL (12.0-16.0); Mean Corpuscular HGB CONC 31.5 g/dL (32.0-36.0); Mean Corpuscular Volume 85.9 fl (81.0-99.0); Mean Platelet Volume 10.4 fL (7.4-10.4); Platelet Count 219 thou/uL (130-400); RBC Distribution Width 13.7 % (11.5-14.5); Red Blood Cell (RBC) Count 4.72 mill/uL (4.20-5.40); White Blood Cell (WBC) Count 6.8 thou/uL (4.8-10.8)
[2017-09-15 14:27] LABS: INR-International Normal Ratio 1.1; PTT 27.6 SEC (22.9-36.1); Prothrombin Time 14.6 SEC (12.0-14.7)
[2017-09-15 14:46] LABS: CKMB 5.5 ng/mL (0-6.6)
[2017-09-15 14:49] LABS: Troponin I 1.239 ng/mL (< 0.028)
[2017-09-15 15:04] LABS: ALT (SGPT) 11 U/L (8-55); AST (SGOT) 36 U/L (5-34); Albumin 3.8 g/dL (3.4-4.8); Alkaline Phosphatase 75 U/L (40-150); Anion Gap 15 mmol/L (10-20); BUN (Urea Nitrogen) 15 mg/dL (9.8-20.1); Bilirubin, Total 0.5 mg/dL (0.2-1.2); CK (CPK) 79 U/L (29-168); Calc. Creatinine Clearance 0 mL/min (70-130); Calcium 9.7 mg/dL (7.8-10.44); Carbon Dioxide 26 mmol/L (23-31); Chloride 105 mmol/L (98-107); Estimated GFR-MDRD 43; Glucose 112 mg/dL (83-110); Potassium 4.7 mmol/L (3.5-5.1); Protein, Total 6.8 g/dL (6.0-8.3); Sodium 141 mmol/L (136-145)
--- NOTE | 2017-09-15 15:26 | PDOC.EVN ---
Event Note - Event Note Event Note: pt is seen and examined in ER, order written and plan explained to pt, H & P will be dictated later for more details
[2017-09-15] MEDS ORDERED: Diltiazem HCl 125 MG, Admixture Fee 1 EACH in Sodium Chloride 0.9% 100 ML IVPB SCH (15:30)
[2017-09-15] MEDS ORDERED: Enoxaparin Sodium 80 MG/0.8 ML SYRINGE ONE (15:33)
[2017-09-15] MEDS ORDERED: Nitroglycerin 0.4 MG TAB (25 Tab Bottle) SL PRN (16:53)
[2017-09-15] MEDS ORDERED: Diltiazem 125 MG in Sodium Chloride 0.9% 100 ML IVPB SCH (16:53)
[2017-09-15] MEDS ORDERED: Eucerin (Mineral Oil/Petrolatum,White) 30 gm Jar TOP PRN (16:53)
[2017-09-15] MEDS ORDERED: Acetaminophen 325 MG TAB PO PRN (16:53)
[2017-09-15] MEDS ORDERED: Ondansetron ODT 4 MG TAB PO PRN (16:53)
[2017-09-15] MEDS ORDERED: Diabetic Tussin 200 MG/10 ML UDCUP PO PRN (16:53)
[2017-09-15] MEDS ORDERED: Sodium Chloride 0.65% Nasal 44 ML BOT EA NARE PRN (16:53)
[2017-09-15] MEDS ORDERED: Mag-Al 1200 mg/1200 mg/30 ML UDCUP PO PRN (16:53)
[2017-09-15] MEDS ORDERED: Loperamide HCl 2 MG CAP PO PRN (16:53)
[2017-09-15] MEDS ORDERED: Loratadine 10 MG TAB PO PRN (16:53)
[2017-09-15] MEDS ORDERED: Chloraseptic Spray 180 ml Bottle PO PRN (16:53)
[2017-09-15] MEDS ORDERED: HYDROcodone/Acetaminophen 5/325 mg Tablet PO PRN (16:53)
[2017-09-15] MEDS ORDERED: Artificial Tear Sol 15 ML BOT EA EYE PRN (16:53)
[2017-09-15] MEDS ORDERED: Milk Of Magnesia 30 ML UDCUP PO PRN (16:53)
[2017-09-15] MEDS ORDERED: Senokot 8.6 MG TAB PO PRN (16:53)
[2017-09-15] MEDS ORDERED: Zolpidem Tartrate 5 MG TAB PO PRN (16:53)
[2017-09-15] MEDS ORDERED: Ondansetron HCl/PF 4 MG/2 ML Vial IVP PRN (16:53)
[2017-09-15] MEDS ORDERED: Digoxin 0.5 MG/2 ML AMP SLOW IVP SCH (17:00)
[2017-09-15] MEDS: Enoxaparin Sodium 80 MG/0.8 ML SYRINGE SC SCH ×3 (18:37→22:00)
[2017-09-15 19:04] LABS: CKMB 7.2 ng/mL (0-6.6); Troponin I 2.345 ng/mL (< 0.028)
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
[2017-09-15 21:25] LABS: CKMB 6.6 ng/mL (0-6.6)
[2017-09-15] MEDS: Atorvastatin Calcium 20 MG TAB PO SCH (21:32)
[2017-09-15] MEDS: Donepezil HCl 5 MG TAB PO SCH (21:32)
[2017-09-16] MEDS: Enoxaparin Sodium 80 MG/0.8 ML SYRINGE SC SCH ×4 (01:06→20:51)
[2017-09-16 05:18] LABS: ALT (SGPT) 11 U/L (8-55); AST (SGOT) 30 U/L (5-34); Albumin 3.2 g/dL (3.4-4.8); Alkaline Phosphatase 55 U/L (40-150); Anion Gap 12 mmol/L (10-20); BUN (Urea Nitrogen) 14 mg/dL (9.8-20.1); Bilirubin, Total 0.5 mg/dL (0.2-1.2); Calc. Creatinine Clearance 57 mL/min (70-130); Calcium 8.8 mg/dL (7.8-10.44); Carbon Dioxide 21 mmol/L (23-31); Chloride 110 mmol/L (98-107); Estimated GFR-MDRD 53; Globulin 2.8 g/dL (2.4-3.5); Glucose 81 mg/dL (83-110); Potassium 4.4 mmol/L (3.5-5.1); Sodium 139 mmol/L (136-145)
[2017-09-16 05:48] LABS: Band 1 % (5-11); Eosinophils 1 % (0-10); Hemoglobin 11.1 g/dL (12.0-16.0); Lymphocytes 63 % (21-51); MDiff Complete? YES; Mean Corpuscular HGB CONC 31.9 g/dL (32.0-36.0); Mean Corpuscular Hemoglobin 27.6 pg (27.0-31.0); Mean Corpuscular Volume 86.5 fl (81.0-99.0); Mean Platelet Volume 10.1 fL (7.4-10.4); Monocytes 9 % (0-10); Neutrophil 26 % (42-75); Platelet Count 180 thou/uL (130-400); RBC Distribution Width 13.5 % (11.5-14.5); Red Blood Cell (RBC) Count 4.03 mill/uL (4.20-5.40); White Blood Cell (WBC) Count 5.2 thou/uL (4.8-10.8)
[2017-09-16] MEDS ORDERED: Prevnar 13-Val Conj/PF 0.5 ML SYRINGE IM ONE (09:00)
[2017-09-16] MEDS: Furosemide 40 MG TAB PO SCH (10:52)
[2017-09-16] MEDS: Famotidine 20 MG TAB PO SCH (10:54)
[2017-09-16] MEDS: Leflunomide 10 mg Tablet PO SCH (10:55)
[2017-09-16] MEDS: Clopidogrel Bisulfate 75 MG TAB PO SCH (11:01)
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
[2017-09-16] MEDS ORDERED: Sodium Chloride 0.9% 1,000 ML IV SCH (15:15)
[2017-09-16] MEDS ORDERED: Digoxin 0.5 MG/2 ML AMP SLOW IVP SCH ×2 (15:15→20:00)
[2017-09-16] MEDS: Atorvastatin Calcium 20 MG TAB PO SCH (20:50)
[2017-09-16] MEDS: Donepezil HCl 5 MG TAB PO SCH (20:54)
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
[2017-09-17] MEDS: Digoxin 0.125 MG TAB PO SCH (08:38)
[2017-09-17] MEDS: Famotidine 20 MG TAB PO SCH (08:38)
[2017-09-17] MEDS: Furosemide 40 MG TAB PO SCH (08:39)
[2017-09-17] MEDS: Leflunomide 10 mg Tablet PO SCH (08:40)
--- NOTE | 2017-09-17 10:51 | PDOC.PN ---
- Subjective Encounter Start Date: 09/16/17 Encounter Start Time: 10:00 Radha is disoriented. has PEG tube disfucntion and very low Blood pressures with afib with RVR. - Objective Resuscitation Status: Resuscitation Status DNR:Do Not Resuscitate MAR Reviewed: Yes Vital Signs & Weight: Vital Signs (12 hours) Temp Pulse Resp BP Pulse Ox 09/17/17 08:38 87 09/17/17 07:29 97.0 F L 87 17 129/62 97 09/17/17 04:00 98.1 F 78 17 139/72 96 09/17/17 00:00 97.4 F L 82 18 138/54 L 97 Weight Admit Weight 160 lb 12.8 oz Weight 159 lb 4.8 oz I&O: 09/16/17 09/17/17 09/18/17 06:59 06:59 06:59 Intake Total 345 1350 Output Total 200 Balance 345 1150 Result Diagrams: 09/17/17 10:58 09/16/17 04:43 Radiology Reviewed by me: Yes Phys Exam - Physical Examination HEENT: PERRLA, moist MMs Neck: no nodes, no JVD Respiratory: no wheezing, no rales Cardiovascular: RRR, no significant murmur Gastrointestinal: soft, non-tender Musculoskeletal: no edema, pulses present Dx/Plan (1) Hypotension Status: Acute Comment: Likely from Afib, will give 1 Liter Fluid bolus and Start on Digoxin 250mcg IV now and go with loading dose, Will need Echo, will get cardilolgy. (2) Atrial fibrillation with RVR Code(s): I48.91 - UNSPECIFIED ATRIAL FIBRILLATION Status: Acute Comment: Plan as Above, Will manuelley Monitor for her decompesation, pt is DNR> (3) PEG (percutaneous endoscopic gastrostomy) adjustment/replacement/removal Code(s): Z43.1 - ENCOUNTER FOR ATTENTION TO GASTROSTOMY Status: Acute Comment: Will consult GI for Replacmetn (4) Acute metabolic encephalopathy Code(s): G93.41 - METABOLIC ENCEPHALOPATHY Status: Acute Comment: likely from dehdration. Will closley monitor. (5) Dysphagia as late effect of cerebrovascular accident (CVA) Code(s): I69.391 - DYSPHAGIA FOLLOWING CEREBRAL INFARCTION Status: Acute Comment: Remains NPO. pt to get peg tube feeding - Plan cont current plan of care, PT/OT, drug abuse social worker, respiratory therapy, incentive spirometry, DVT proph w/lovenox * . - Discharge Day Encounter end time: 10:35 (30 Min of CC Time) Review of Systems - Review of Systems Other: Ubavke to get ROS, pt is disorientd and very dehdrated. - Medications/Allergies Allergies/Adverse Reactions: Allergies Allergy/AdvReac Type Severity Reaction Status Date / Time Penicillins Allergy Unknown Verified 09/15/17 17:04 Sulfa (Sulfonamide Allergy Unknown Hives Verified 09/15/17 17:04 Antibiotics) Medications: Current Medications Acetaminophen (Tylenol) 650 mg PO Q4H PRN PRN Reason: Headache/Fever or Pain Hydrocodone Bitart/Acetaminophen ([place] 5/325) 1 tab PO Q4H PRN PRN Reason: Moderate Pain (4-6) Al Hydroxide/Mg Hydroxide (Maalox) 30 ml PO Q6H PRN PRN Reason: Heartburn or Indigestion Artificial Tears (Tears Renewed 15ml Bottle) 0 drop EA EYE PRN PRN PRN Reason: Dry Eyes Atorvastatin Calcium (Lipitor) 20 mg PO HS [facility] Last Admin: 09/16/17 20:50 Dose: 20 mg Clopidogrel Bisulfate (Plavix) 75 mg PO DAILY [facility] Last Admin: 09/16/17 11:01 Dose: 75 mg Digoxin (Lanoxin) 0.125 mg PO DAILY [facility] Last Admin: 09/17/17 08:38 Dose: 0.125 mg Donepezil HCl (Aricept) 5 mg PO HS [facility] Last Admin: 09/16/17 20:54 Dose: 5 mg Enoxaparin Sodium (Lovenox) 70 mg SC 0900,2100 [facility] Last Admin: 09/16/17 20:51 Dose: 70 mg Famotidine (Pepcid) 20 mg PO DAILY [facility] Last Admin: 09/17/17 08:38 Dose: 20 mg Furosemide (Lasix) 40 mg PO DAILY [facility] Last Admin: 09/17/17 08:39 Dose: 40 mg Guaifenesin (Robitussin Sf) 200 mg PO Q4H PRN PRN Reason: Cough Diltiazem HCl 125 mg/ Sodium (Chloride) 125 mls @ 5 mls/hr IVPB INF [facility]; 5 MG/ HR PRN Reason: Protocol Last Admin: 09/16/17 22:55 Dose: 125 mls Leflunomide (Arava) 20 mg PO DAILY [facility] Last Admin: 09/17/17 08:40 Dose: 20 mg Loperamide HCl (Imodium) 2 mg PO PRN PRN PRN Reason: Diarrhea/Loose Stools Loratadine (Claritin) 10 mg PO DAILYPRN PRN PRN Reason: Sinus Symptoms Magnesium Hydroxide (Milk Of Magnesium) 30 ml PO DAILYPRN PRN PRN Reason: Constipation Mineral Oil/White Petrolatum (Eucerin Cream) 0 gm TOP BIDPRN PRN PRN Reason: Dry Skin Nitroglycerin (Nitrostat) 0.4 mg SL Q5MIN PRN PRN Reason: Chest Pain Ondansetron HCl (Zofran Odt) 4 mg PO Q6H PRN PRN Reason: Nausea/Vomiting Ondansetron HCl (Zofran) 4 mg IVP Q6H PRN PRN Reason: Nausea/Vomiting Phenol (Chloraseptic [place] 180 Ml Bot) 0 ml PO PRN PRN PRN Reason: Sore Throat Quetiapine Fumarate (Seroquel) 50 mg PO BID [facility] Last Admin: 09/17/17 08:39 Dose: 50 mg Senna (Senokot) 2 tab PO HSPRN PRN PRN Reason: Constipation Sodium Chloride ([place] Nasal [place] 0.65%) 0 ml EA NARE QIDPRN PRN PRN Reason: Nasal Congestion Sodium Chloride (Flush - Normal Saline) 10 ml IVF PRN PRN PRN Reason: Saline Flush Zolpidem Tartrate (Ambien) 5 mg PO HSPRN PRN PRN Reason: Insomnia
[2017-09-17 11:13] LABS: #Eosinphils 0.1 thou/uL (0.0-0.7); #Lymphocytes 1.4 thou/uL (1.20-3.40); #Monocytes 0.3 thou/uL (0.11-0.59); #Neutrophils 1.8 thou/uL (1.40-6.50); %Basophils 1.2 % (0.0-1.0); %Eosinophils 3.1 % (0.0-10.0); %Lymphocytes 38.8 % (21.0-51.0); %Monocytes 7.5 % (0.0-10.0); %Neutrophils 49.5 % (42.0-75.0); Hemoglobin 11.8 g/dL (12.0-16.0); Mean Corpuscular HGB CONC 31.9 g/dL (32.0-36.0); Mean Corpuscular Hemoglobin 27.1 pg (27.0-31.0); Mean Corpuscular Volume 84.9 fl (81.0-99.0); Mean Platelet Volume 9.6 fL (7.4-10.4); Platelet Count 180 thou/uL (130-400); RBC Distribution Width 13.4 % (11.5-14.5); Red Blood Cell (RBC) Count 4.37 mill/uL (4.20-5.40); White Blood Cell (WBC) Count 3.7 thou/uL (4.8-10.8)
[2017-09-17 11:24] LABS: Anion Gap 14 mmol/L (10-20); BUN (Urea Nitrogen) 11 mg/dL (9.8-20.1); Calc. Creatinine Clearance 69 mL/min (70-130); Calcium 8.6 mg/dL (7.8-10.44); Carbon Dioxide 19 mmol/L (23-31); Chloride 110 mmol/L (98-107); Estimated GFR-MDRD 67; Glucose 79 mg/dL (83-110); Potassium 4.3 mmol/L (3.5-5.1); Sodium 139 mmol/L (136-145)
--- NOTE | 2017-09-17 11:30 | PDOC.PN ---
- Subjective Encounter Start Date: 09/17/17 Encounter Start Time: 11:00 Patient is seen today, daughter bedside, she is more alert today, oriented. feeling sleepy, Patient is planned for PEG tube placement today. - Objective Resuscitation Status: Resuscitation Status DNR:Do Not Resuscitate MAR Reviewed: Yes Vital Signs & Weight: Vital Signs (12 hours) Temp Pulse Resp BP Pulse Ox 09/17/17 11:17 97.4 F L 81 19 132/71 96 09/17/17 08:38 87 09/17/17 07:29 97.0 F L 87 17 129/62 97 09/17/17 04:00 98.1 F 78 17 139/72 96 09/17/17 00:00 97.4 F L 82 18 138/54 L 97 Weight Admit Weight 160 lb 12.8 oz Weight 159 lb 4.8 oz I&O: 09/16/17 09/17/17 09/18/17 06:59 06:59 06:59 Intake Total 345 1350 Output Total 200 Balance 345 1150 Result Diagrams: 09/17/17 10:58 09/17/17 10:58 Radiology Reviewed by me: Yes Phys Exam - Physical Examination HEENT: PERRLA, moist MMs Neck: no nodes, no JVD Respiratory: no wheezing, no rales Cardiovascular: RRR, no significant murmur Gastrointestinal: soft, non-tender Musculoskeletal: no edema, pulses present Neurological: non-focal, normal sensation Lymphatic: no nodes Dx/Plan (1) Hypotension Status: Acute Comment: resolved, will continue with fluids, Will closley monitor. Hold the HTN meds today.. (2) Atrial fibrillation with RVR Code(s): I48.91 - UNSPECIFIED ATRIAL FIBRILLATION Status: Acute Comment: Will continue with Cardizem drip she is on it is rate controlled., Will closley Monitor for her decompesation, pt is DNR> (3) PEG (percutaneous endoscopic gastrostomy) adjustment/replacement/removal Code(s): Z43.1 - ENCOUNTER FOR ATTENTION TO GASTROSTOMY Status: Acute Comment: Planned EGD today and followed by PEG replacement. will continue Tube feeding when OK with GI. (4) Acute metabolic encephalopathy Code(s): G93.41 - METABOLIC ENCEPHALOPATHY Status: Acute Comment: Improving. likely from dehdration. Will closley monitor. (5) Dysphagia as late effect of cerebrovascular accident (CVA) Code(s): I69.391 - DYSPHAGIA FOLLOWING CEREBRAL INFARCTION Status: Acute Comment: Remains NPO. pt to get peg tube feeding once new PEG placed. - Plan cont current plan of care, plan discussed w/ family, PT/OT, social work nurse, respiratory therapy, incentive spirometry, DVT proph w/lovenox * . - Discharge Day Encounter end time: 11:35 Review of Systems - Review of Systems Constitutional: negative: fever, chills, sweats, weakness, malaise, other Eyes: negative: Pain, Vision Change, Conjunctivae Inflammation, Eyelid Inflammation, Redness, Other ENT: negative: Ear Pain, Ear Discharge, Nose Pain, Nose Discharge, Nose Congestion, Mouth Pain, Mouth Swelling, Throat Pain, Throat Swelling, Other Respiratory: negative: Cough, Dry, Shortness of Breath, Hemoptysis, SOB with Excertion, Pleuritic Pain, Sputum, Wheezing Cardiovascular: negative: chest pain, palpitations, orthopnea, paroxysmal nocturnal dyspnea, edema, light headedness, other Gastrointestinal: negative: Nausea, Vomiting, Abdominal Pain, Diarrhea, Constipation, Melena, Hematochezia, Other Genitourinary: negative: Dysuria, Frequency, Incontinence, Hematuria, Retention , Other - Medications/Allergies Allergies/Adverse Reactions: Allergies Allergy/AdvReac Type Severity Reaction Status Date / Time Penicillins Allergy Unknown Verified 09/15/17 17:04 Sulfa (Sulfonamide Allergy Unknown Hives Verified 09/15/17 17:04 Antibiotics) Medications: Current Medications Acetaminophen (Tylenol) 650 mg PO Q4H PRN PRN Reason: Headache/Fever or Pain Hydrocodone Bitart/Acetaminophen ([place] 5/325) 1 tab PO Q4H PRN PRN Reason: Moderate Pain (4-6) Al Hydroxide/Mg Hydroxide (Maalox) 30 ml PO Q6H PRN PRN Reason: Heartburn or Indigestion Artificial Tears (Tears Renewed 15ml Bottle) 0 drop EA EYE PRN PRN PRN Reason: Dry Eyes Atorvastatin Calcium (Lipitor) 20 mg PO [facility] Last Admin: 09/16/17 20:50 Dose: 20 mg Clopidogrel Bisulfate (Plavix) 75 mg PO DAILY [facility] Last Admin: 09/16/17 11:01 Dose: 75 mg Digoxin (Lanoxin) 0.125 mg PO DAILY [facility] Last Admin: 09/17/17 08:38 Dose: 0.125 mg Donepezil HCl (Aricept) 5 mg PO HS [facility] Last Admin: 09/16/17 20:54 Dose: 5 mg Enoxaparin Sodium (Lovenox) 70 mg SC 0900,2100 [facility] Last Admin: 09/16/17 20:51 Dose: 70 mg Famotidine (Pepcid) 20 mg PO DAILY [facility] Last Admin: 09/17/17 08:38 Dose: 20 mg Furosemide (Lasix) 40 mg PO DAILY [facility] Last Admin: 09/17/17 08:39 Dose: 40 mg Guaifenesin (Robitussin Sf) 200 mg PO Q4H PRN PRN Reason: Cough Diltiazem HCl 125 mg/ Sodium (Chloride) 125 mls @ 5 mls/hr IVPB INF [facility]; 5 MG/ HR PRN Reason: Protocol Last Admin: 09/16/17 22:55 Dose: 125 mls Leflunomide (Arava) 20 mg PO DAILY [facility] Last Admin: 09/17/17 08:40 Dose: 20 mg Loperamide HCl (Imodium) 2 mg PO PRN PRN PRN Reason: Diarrhea/Loose Stools Loratadine (Claritin) 10 mg PO DAILYPRN PRN PRN Reason: Sinus Symptoms Magnesium Hydroxide (Milk Of Magnesium) 30 ml PO DAILYPRN PRN PRN Reason: Constipation Mineral Oil/White Petrolatum (Eucerin Cream) 0 gm TOP BIDPRN PRN PRN Reason: Dry Skin Nitroglycerin (Nitrostat) 0.4 mg SL Q5MIN PRN PRN Reason: Chest Pain Ondansetron HCl (Zofran Odt) 4 mg PO Q6H PRN PRN Reason: Nausea/Vomiting Ondansetron HCl (Zofran) 4 mg IVP Q6H PRN PRN Reason: Nausea/Vomiting Phenol (Chloraseptic [place] 180 Ml Bot) 0 ml PO PRN PRN PRN Reason: Sore Throat Quetiapine Fumarate (Seroquel) 50 mg PO BID [facility] Last Admin: 09/17/17 08:39 Dose: 50 mg Senna (Senokot) 2 tab PO HSPRN PRN PRN Reason: Constipation Sodium Chloride ([place] Nasal [place] 0.65%) 0 ml EA NARE QIDPRN PRN PRN Reason: Nasal Congestion Sodium Chloride (Flush - Normal Saline) 10 ml IVF PRN PRN PRN Reason: Saline Flush Zolpidem Tartrate (Ambien) 5 mg PO HSPRN PRN PRN Reason: Insomnia
[2017-09-17] MEDS ORDERED: PROPOFOL 200 MG/20 ML VIAL ONE (13:12)
--- NOTE | 2017-09-17 14:14 | OP ---
DATE OF PROCEDURE: 09/17/2017 SURGEON: Dr. Isma Cueto PREOPERATIVE DIAGNOSIS: PEG malfunction. PROCEDURE: After informed consent was obtained, the patient placed in supine position. Anesthesia w as administered per the Anesthesia Department. Forward-viewing endoscope was inserted in the esophag us under direct visualization with ease and passed to the second portion of the duodenum with ease. Second portion of the duodenum and duodenal bulb were normal. The pylorus, antrum, body, fundus, and cardia were normal. Retroflexion of stomach was normal. Esophagus was normal throughout. A previo usly existing temporary percutaneous endoscopic gastrostomy was noted in place. It seemed to be func tional, but it was very small 16 Irish tube. It was removed and attempts to place a 22 Irish tube percutaneously were unsuccessful. A PEG kit was then opened and a wire was passed through the existi ng ostomy and the wire was snared, brought out of the mouth. The PEG tube was attached and brought t hrough the existing ostomy without an incision being made. Reinsertion of the endoscope showed the p eg bumper to be in good position. ASSESSMENT: Small PEG removed and replaced with a 24 Irish PEG using the existing ostomy. RECOMMENDATIONS: Begin PEG feedings.
[2017-09-17] MEDS: Clopidogrel Bisulfate 75 MG TAB PO SCH (16:01)
--- NOTE | 2017-09-17 18:03 | PRG ---
DATE OF SERVICE: 09/17/2017 SUBJECTIVE: Letha Mckeon has no complaints. OBJECTIVE: VITAL SIGNS: She is afebrile, heart rates in the 60s-80s, respiratory rate is 20, oximetry is 100% o n 2 liters, blood pressure 119/57 this afternoon. LUNGS: Clear. HEART: Irregular. ABDOMEN: Soft. EXTREMITIES: With asymmetry. She had her PEG replaced by Dr. Cueto today. White count is 3.7, hemoglobin 11.8, platelets 180. Sodium 139, potassium 4.3, chloride 110, bicarbonate 19, BUN 11, creatinine 0.83. IMPRESSION: 1. Atrial fibrillation. 2. Swallowing dysfunction with replacement of her PEG today. 3. Probable intravascular volume depletion on presentation from the group home. 4. Dementia with a history of cerebrovascular accident. She has no new complaints. We will continue supportive care. She can move out of the intermediate c are unit to a telemetry bed if Cardiology agreed.
[2017-09-17] MEDS: Donepezil HCl 5 MG TAB PO SCH (20:45)
[2017-09-17] MEDS: Atorvastatin Calcium 20 MG TAB PO SCH (20:45)
[2017-09-18 10:31] LABS: Digoxin 1.14 ng/mL (0.8-2.0)
[2017-09-18] MEDS: Apixaban 5 MG TAB PER TUBE SCH ×2 (11:01→20:25)
[2017-09-18] MEDS: Digoxin 0.125 MG TAB PO SCH (11:01)
[2017-09-18] MEDS: Furosemide 40 MG TAB PO SCH (11:02)
[2017-09-18] MEDS: Enoxaparin Sodium 80 MG/0.8 ML SYRINGE SC SCH (11:02)
[2017-09-18] MEDS: Famotidine 20 MG TAB PO SCH ×2 (11:03→20:25)
[2017-09-18] MEDS: Leflunomide 10 mg Tablet PO SCH (11:03)
--- NOTE | 2017-09-18 14:28 | PDOC.PN ---
- Subjective Encounter Start Date: 09/18/17 Encounter Start Time: 10:00 Patient is seen today, alert but is spaced out , She is admitted with PEG tube disfcuntion and Afib with RVR. She is not Communicating well, No family meeber is at bediside. - Objective Resuscitation Status: Resuscitation Status DNR:Do Not Resuscitate MAR Reviewed: Yes Vital Signs & Weight: Vital Signs (12 hours) Temp Pulse Pulse Pulse Resp BP BP 09/18/17 11:25 98.4 F 80 24 H 09/18/17 11:01 107 H 09/18/17 10:21 107/60 09/18/17 08:46 95 90 103/60 124/71 09/18/17 07:25 98.8 F 91 14 09/18/17 04:00 97.3 F L 18 09/18/17 02:41 BP Pulse Ox 09/18/17 11:25 114/54 L 96 09/18/17 11:01 09/18/17 10:21 09/18/17 08:46 09/18/17 07:25 98/63 93 L 09/18/17 04:00 107/51 L 97 09/18/17 02:41 97 Weight Admit Weight 160 lb 12.8 oz Weight 159 lb 11.2 oz I&O: 09/17/17 09/18/17 09/19/17 06:59 06:59 06:59 Intake Total 1350 315 30 Output Total 200 Balance 1150 315 30 Result Diagrams: 09/17/17 10:58 09/17/17 10:58 Additional Labs: Accuchecks 09/17/17 22:27 POC Glucose 81 Radiology Reviewed by me: Yes Phys Exam - Physical Examination HEENT: PERRLA, moist MMs Neck: no nodes, no JVD Cardiovascular: RRR, no significant murmur Gastrointestinal: soft, non-tender Musculoskeletal: no edema, pulses present Neurological: non-focal, normal sensation Deviation from normal: No affect Skin: no rash, normal turgor Dx/Plan (1) Hypotension Status: Acute Comment: resolved, will continue with fluids, Will closley monitor. Hold the HTN meds today.. (2) Atrial fibrillation with RVR Code(s): I48.91 - UNSPECIFIED ATRIAL FIBRILLATION Status: Acute Comment: Cardizem is continued , pt on Po Digoxin, will check Dig levels. Cardiology following, Will need to transition to oral Cardizem but BP are borderline. (3) PEG (percutaneous endoscopic gastrostomy) adjustment/replacement/removal Code(s): Z43.1 - ENCOUNTER FOR ATTENTION TO GASTROSTOMY Status: Acute Comment: No PEg placed started on Tube feeding. . (4) Acute metabolic encephalopathy Code(s): G93.41 - METABOLIC ENCEPHALOPATHY Status: Acute Comment: Improving. likely from dehdration. Will closley monitor. (5) Dysphagia as late effect of cerebrovascular accident (CVA) Code(s): I69.391 - DYSPHAGIA FOLLOWING CEREBRAL INFARCTION Status: Acute Comment: on PEG tube feeding. - Plan cont current plan of care, speech therapy, respiratory therapy, incentive spirometry, out of bed/ambulate, DVT proph w/SCDs * . - Discharge Day Encounter end time: 10:35 Review of Systems - Review of Systems Eyes: negative: Pain, Vision Change, Conjunctivae Inflammation, Eyelid Inflammation, Redness, Other ENT: negative: Ear Pain, Ear Discharge, Nose Pain, Nose Discharge, Nose Congestion, Mouth Pain, Mouth Swelling, Throat Pain, Throat Swelling, Other Respiratory: negative: Cough, Dry, Shortness of Breath, Hemoptysis, SOB with Excertion, Pleuritic Pain, Sputum, Wheezing Cardiovascular: negative: chest pain, palpitations, orthopnea, paroxysmal nocturnal dyspnea, edema, light headedness, other Gastrointestinal: negative: Nausea, Vomiting, Abdominal Pain, Diarrhea, Constipation, Melena, Hematochezia, Other Genitourinary: negative: Dysuria, Frequency, Incontinence, Hematuria, Retention , Other Musculoskeletal: negative: Neck Pain, Shoulder Pain, Arm Pain, Back Pain, Hand Pain, Leg Pain, Foot Pain, Other Other: Unable to get ROS as patient is not answering questions. - Medications/Allergies Allergies/Adverse Reactions: Allergies Allergy/AdvReac Type Severity Reaction Status Date / Time Penicillins Allergy Unknown Verified 09/15/17 17:04 Sulfa (Sulfonamide Allergy Unknown Hives Verified 09/15/17 17:04 Antibiotics) quetiapine [From Seroquel] Allergy Verified 09/17/17 13:44 Medications: Current Medications Acetaminophen (Tylenol) 650 mg PO Q4H PRN PRN Reason: Headache/Fever or Pain Hydrocodone Bitart/Acetaminophen ([place] 5/325) 1 tab PO Q4H PRN PRN Reason: Moderate Pain (4-6) Al Hydroxide/Mg Hydroxide (Maalox) 30 ml PO Q6H PRN PRN Reason: Heartburn or Indigestion Apixaban (Eliquis) 5 mg PER TUBE BID [facility] Last Admin: 09/18/17 11:01 Dose: 5 mg Artificial Tears (Tears Renewed 15ml Bottle) 0 drop EA EYE PRN PRN PRN Reason: Dry Eyes Aspirin (Aspirin Chewable) 81 mg PER TUBE DAILY [facility] Last Admin: 09/18/17 11:01 Dose: 81 mg Atorvastatin Calcium (Lipitor) 20 mg PO HS [facility] Last Admin: 09/17/17 20:45 Dose: 20 mg Digoxin (Lanoxin) 0.125 mg PO DAILY [facility] Last Admin: 09/18/17 11:01 Dose: 0.125 mg Donepezil HCl (Aricept) 5 mg PO HS [facility] Last Admin: 09/17/17 20:45 Dose: 5 mg Famotidine (Pepcid) 20 mg PO BID [facility] Last Admin: 09/18/17 11:03 Dose: 20 mg Furosemide (Lasix) 40 mg PO DAILY [facility] Last Admin: 09/18/17 11:02 Dose: 40 mg Guaifenesin (Robitussin Sf) 200 mg PO Q4H PRN PRN Reason: Cough Leflunomide (Arava) 20 mg PO DAILY [facility] Last Admin: 09/18/17 11:03 Dose: 20 mg Loperamide HCl (Imodium) 2 mg PO PRN PRN PRN Reason: Diarrhea/Loose Stools Loratadine (Claritin) 10 mg PO DAILYPRN PRN PRN Reason: Sinus Symptoms Magnesium Hydroxide (Milk Of Magnesium) 30 ml PO DAILYPRN PRN PRN Reason: Constipation Mineral Oil/White Petrolatum (Eucerin Cream) 0 gm TOP BIDPRN PRN PRN Reason: Dry Skin Nitroglycerin (Nitrostat) 0.4 mg SL Q5MIN PRN PRN Reason: Chest Pain Ondansetron HCl (Zofran Odt) 4 mg PO Q6H PRN PRN Reason: Nausea/Vomiting Ondansetron HCl (Zofran) 4 mg IVP Q6H PRN PRN Reason: Nausea/Vomiting Phenol (Chloraseptic [place] 180 Ml Bot) 0 ml PO PRN PRN PRN Reason: Sore Throat Senna (Senokot) 2 tab PO HSPRN PRN PRN Reason: Constipation Sodium Chloride ([place] Nasal [place] 0.65%) 0 ml EA NARE QIDPRN PRN PRN Reason: Nasal Congestion Sodium Chloride (Flush - Normal Saline) 10 ml IVF PRN PRN PRN Reason: Saline Flush Zolpidem Tartrate (Ambien) 5 mg PO HSPRN PRN PRN Reason: Insomnia
--- NOTE | 2017-09-18 15:41 | PRG ---
DATE OF SERVICE: 09/18/2017 SUBJECTIVE: Ms. Mckeon has no complaints. OBJECTIVE: VITAL SIGNS: Heart rates in the 80s, she is afebrile, she is on room air with satting 96%. Blood pr essure 114/54. LUNGS: Clear. MEDICATIONS: She switched from Lovenox to Eliquis now. IMPRESSION: 1. Status post cerebrovascular accident with swallowing dysfunction and a PEG in place. Her PEG has been replaced and is functioning well. 2. Atrial fibrillation. 3. ? dementia. She certainly has interactions consistent with a diagnosis of dementia. PLAN: In this setting, the shortest hospitalization possible would be optimal in my opinion, rate co ntrol and anticoagulation (with her risk of falling) would probably be the best option long-term and trying to get her back into her care environment as soon as possible.
[2017-09-18] MEDS: Atorvastatin Calcium 20 MG TAB PO SCH (20:25)
[2017-09-18] MEDS: Donepezil HCl 5 MG TAB PO SCH (20:25)
[2017-09-19] MEDS: Leflunomide 10 mg Tablet PO SCH (09:51)
[2017-09-19] MEDS: Digoxin 0.125 MG TAB PO SCH (09:52)
[2017-09-19] MEDS: Famotidine 20 MG TAB PO SCH ×2 (09:53→21:05)
[2017-09-19] MEDS: Apixaban 5 MG TAB PER TUBE SCH ×2 (09:53→21:05)
[2017-09-19] MEDS: Furosemide 40 MG TAB PO SCH (09:53)
[2017-09-19] MEDS: Metoprolol Tartrate 25 MG TAB PO SCH ×2 (10:01→21:05)
[2017-09-19 11:41] VITALS: BMI 25.7
--- NOTE | 2017-09-19 12:33 | PRG ---
DATE OF SERVICE: 09/19/2017 SUBJECTIVE: The patient of Dr. Monk. Awake, alert, responsive, status post replacement of a PEG. Daughters at the bedside who says she can be transferred [facility]. OBJECTIVE: VITAL SIGNS: Respiratory rate is 21, temperature 98, blood pressure 155/56. CHEST: With decreased breath sounds, no wheezing. CARDIAC: Normal S1, S2, no gallops. ABDOMEN: Soft. EXTREMITIES: No edema. IMPRESSION: Status post cerebrovascular accident, status post PEG, dementia, atrial fibrillation. PLAN: Continue PT, placement, Eliquis.
--- NOTE | 2017-09-19 15:10 | PDOC.PN ---
- Subjective Encounter Start Date: 09/19/17 Encounter Start Time: 12:00 Radha is seen today, alert, and low mood, Discussed with Daughter on phone, Explained plan is to Eval[facility] with Speech therapy and evalaute for rehab transfer tomorrow. - Objective Resuscitation Status: Resuscitation Status DNR:Do Not Resuscitate MAR Reviewed: Yes Vital Signs & Weight: Vital Signs (12 hours) Temp Pulse Pulse Pulse Resp BP BP 09/19/17 11:42 98.6 F 62 22 H 09/19/17 09:52 67 09/19/17 09:50 68 70 179/65 H 173/53 H 09/19/17 08:10 98.8 F 66 21 H 09/19/17 08:00 98.8 F 66 21 H 09/19/17 04:00 97.6 F 83 18 BP Pulse Ox Pulse Ox Pulse Ox 09/19/17 11:42 159/63 H 97 09/19/17 09:52 09/19/17 09:50 96 97 09/19/17 08:10 155/56 H 97 09/19/17 08:00 97 09/19/17 04:00 154/63 H 97 Weight Admit Weight 160 lb 12.8 oz Weight 159 lb 3 oz I&O: 09/18/17 09/19/17 09/20/17 06:59 06:59 06:59 Intake Total 315 1595 30 Balance 315 1595 30 Result Diagrams: 09/17/17 10:58 09/17/17 10:58 Radiology Reviewed by me: Yes Phys Exam - Physical Examination HEENT: moist MMs, sclera anicteric Neck: no nodes, no JVD Respiratory: no wheezing, no rales Cardiovascular: RRR, no significant murmur Gastrointestinal: soft, non-tender Musculoskeletal: no edema, pulses present Neurological: non-focal, normal sensation Lymphatic: no nodes Psychiatric: normal affect, A&O x 3 Skin: no rash, normal turgor Dx/Plan (1) Hypotension Status: Acute Comment: resolved, will continue with fluids, Will closley monitor. Hold the HTN meds today.. (2) Atrial fibrillation with RVR Code(s): I48.91 - UNSPECIFIED ATRIAL FIBRILLATION Status: Acute Comment: pt on Po Digoxin, and Po metoprolol started today,. Stbale HR now. (3) PEG (percutaneous endoscopic gastrostomy) adjustment/replacement/removal Code(s): Z43.1 - ENCOUNTER FOR ATTENTION TO GASTROSTOMY Status: Acute Comment: New PEg placed started on Tube feeding. . (4) Acute metabolic encephalopathy Code(s): G93.41 - METABOLIC ENCEPHALOPATHY Status: Acute Comment: Improving. likely from dehdration. Will closley monitor. 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 - Discharge Day Encounter end time: 12:35 Review of Systems - Review of Systems Constitutional: negative: fever, chills, sweats, weakness, malaise, other Eyes: negative: Pain, Vision Change, Conjunctivae Inflammation, Eyelid Inflammation, Redness, Other Respiratory: negative: Cough, Dry, Shortness of Breath, Hemoptysis, SOB with Excertion, Pleuritic Pain, Sputum, Wheezing Cardiovascular: negative: chest pain, palpitations, orthopnea, paroxysmal nocturnal dyspnea, edema, light headedness, other Gastrointestinal: negative: Nausea, Vomiting, Abdominal Pain, Diarrhea, Constipation, Melena, Hematochezia, Other Musculoskeletal: negative: Neck Pain, Shoulder Pain, Arm Pain, Back Pain, Hand Pain, Leg Pain, Foot Pain, Other Skin: negative: Rash, Lesions, Johnathan, Bruising, Other - Medications/Allergies Allergies/Adverse Reactions: Allergies Allergy/AdvReac Type Severity Reaction Status Date / Time Penicillins Allergy Unknown Verified 09/15/17 17:04 Sulfa (Sulfonamide Allergy Unknown Hives Verified 09/15/17 17:04 Antibiotics) quetiapine [From Seroquel] Allergy Verified 09/17/17 13:44 Medications: Current Medications Acetaminophen (Tylenol) 650 mg PO Q4H PRN PRN Reason: Headache/Fever or Pain Hydrocodone Bitart/Acetaminophen ([place] 5/325) 1 tab PO Q4H PRN PRN Reason: Moderate Pain (4-6) Al Hydroxide/Mg Hydroxide (Maalox) 30 ml PO Q6H PRN PRN Reason: Heartburn or Indigestion Apixaban (Eliquis) 5 mg PER TUBE BID [facility] Last Admin: 09/19/17 09:53 Dose: 5 mg Artificial Tears (Tears Renewed 15ml Bottle) 0 drop EA EYE PRN PRN PRN Reason: Dry Eyes Aspirin (Aspirin Chewable) 81 mg PER TUBE DAILY [facility] Last Admin: 09/19/17 09:53 Dose: 81 mg Atorvastatin Calcium (Lipitor) 20 mg PO HS [facility] Last Admin: 09/18/17 20:25 Dose: 20 mg Digoxin (Lanoxin) 0.125 mg PO DAILY [facility] Last Admin: 09/19/17 09:52 Dose: 0.125 mg Donepezil HCl (Aricept) 5 mg PO HS [facility] Last Admin: 09/18/17 20:25 Dose: 5 mg Famotidine (Pepcid) 20 mg PO BID [facility] Last Admin: 09/19/17 09:53 Dose: 20 mg Furosemide (Lasix) 40 mg PO DAILY [facility] Last Admin: 09/19/17 09:53 Dose: 40 mg Guaifenesin (Robitussin Sf) 200 mg PO Q4H PRN PRN Reason: Cough Leflunomide (Arava) 20 mg PO DAILY [facility] Last Admin: 09/19/17 09:51 Dose: 20 mg Loperamide HCl (Imodium) 2 mg PO PRN PRN PRN Reason: Diarrhea/Loose Stools Loratadine (Claritin) 10 mg PO DAILYPRN PRN PRN Reason: Sinus Symptoms Magnesium Hydroxide (Milk Of Magnesium) 30 ml PO DAILYPRN PRN PRN Reason: Constipation Metoprolol Tartrate (Lopressor) 25 mg PO BID [facility] Last Admin: 09/19/17 10:01 Dose: 25 mg Mineral Oil/White Petrolatum (Eucerin Cream) 0 gm TOP BIDPRN PRN PRN Reason: Dry Skin Nitroglycerin (Nitrostat) 0.4 mg SL Q5MIN PRN PRN Reason: Chest Pain Ondansetron HCl (Zofran Odt) 4 mg PO Q6H PRN PRN Reason: Nausea/Vomiting Ondansetron HCl (Zofran) 4 mg IVP Q6H PRN PRN Reason: Nausea/Vomiting Phenol (Chloraseptic Gypsy 180 Ml Bot) 0 ml PO PRN PRN PRN Reason: Sore Throat Senna (Senokot) 2 tab PO HSPRN PRN PRN Reason: Constipation Sodium Chloride ([place] Nasal Gypsy 0.65%) 0 ml EA NARE QIDPRN PRN PRN Reason: Nasal Congestion Sodium Chloride (Flush - Normal Saline) 10 ml IVF PRN PRN PRN Reason: Saline Flush Last Admin: 09/19/17 09:53 Dose: 10 ml Zolpidem Tartrate (Ambien) 5 mg PO HSPRN PRN PRN Reason: Insomnia
[2017-09-19] MEDS: Donepezil HCl 5 MG TAB PO SCH (21:05)
[2017-09-19] MEDS: Atorvastatin Calcium 20 MG TAB PO SCH (21:05)
[2017-09-20 07:51] LABS: Hemoglobin 11.9 g/dL (12.0-16.0); Platelet Count 173 thou/uL (130-400)
[2017-09-20] MEDS: Digoxin 0.125 MG TAB PO SCH (09:29)
[2017-09-20] MEDS: Leflunomide 10 mg Tablet PO SCH (09:30)
[2017-09-20] MEDS: Metoprolol Tartrate 25 MG TAB PO SCH (09:30)
[2017-09-20] MEDS: Famotidine 20 MG TAB PO SCH (09:30)
[2017-09-20] MEDS: Apixaban 5 MG TAB PER TUBE SCH (09:30)
[2017-09-20] MEDS: Furosemide 40 MG TAB PO SCH (09:30)
[2017-09-20 13:16] VITALS: TEMP 97.8
[2017-09-20 14:24] VITALS: BP 161/75
--- NOTE | 2017-09-20 15:39 | PRG ---
DATE OF SERVICE: 09/20/2017 SUBJECTIVE: This morning, she is doing better. She is less short of breath. She is going to the [facility] home today. OBJECTIVE: VITAL SIGNS: Sats are 98.2 on room air, respiratory rate 18, temperature 97, blood pressure 170/76. CHEST: Decreased breath sounds without any wheezing. CARDIAC: Normal S1 and S2. No gallops. ABDOMEN: Soft. No masses. IMPRESSION: 1. Dementia. 2. Cerebrovascular accident. 3. Pneumonia. PLAN: She is stable enough to be discharged. Follow up with Dr. Monk as needed.
--- NOTE | 2017-09-22 12:18 | DIS ---
DATE OF ADMISSION: 09/15/2017 DATE OF DISCHARGE: 09/20/2017 ADMITTING DIAGNOSIS: Atrial fibrillation with rapid ventricular rate. DISCHARGE DIAGNOSIS: Atrial fibrillation with rapid ventricular rate. SECONDARY DIAGNOSES: 1. PEG tube dysfunction. 2. Hypotension. 3. Non-ST elevation myocardial infarction from demand ischemia. 4. Chronic diastolic heart failure. 5. Chronic anticoagulation. 6. History of chronic cerebrovascular accident. 7. History of rheumatoid arthritis. 8. History of hypertension. 9. Severe dementia. CONSULTANTS INVOLVED IN THE CARE: 1. Dr. Zaid Thapa. 2. Dr. Bhavin Monk. 3. GI, Dr. Jose Contreras. HISTORY OF PRESENT ILLNESS AND HOSPITAL COURSE: In brief, this is a 71-year-old white female who marlon es at [facility]. She has a history of right MCA territory infarction and she is on PEG tube placement for her oropharyngeal dysphagia after the stroke, but the patient was also e ating as tolerated. This was malfunctioning and also she was having some rapid ventricular rate with the rate of 130 and she was brought to the ER for further evaluation. When patient arrived in the E R, she was pretty tachycardic with rapid ventricular rate and she was admitted to the ICU with the Ca rdizem drip. The patient's blood pressure time down and was very low in 70s to 40s and the patient w as given IV fluid boluses to bring back pressures. She was started on digoxin 250 mcg IV and Cardiol elle was consulted. Cardiology suggested to continue the patient on digoxin at this time as blood pre ssures were low and patient was seen by GI because of the PEG tube dysfunction. Patient had EGD foll owed by PEG tube replacement and her PEG tube feeding was restarted. The patient continued to have l ow blood pressures and was tachycardic and she was continued on Cardizem drip along with digoxin. Justice horan showed good improvement in her heart rates and she was also able to continue on the tube feedin g. Later on, she had a repeat speech evaluation and speech also cleared for eating as tolerated and with a modified diet. Patient was later discharged back to long-term [facility] with her rehabil itation. Patient was stable at the day of discharge. PHYSICAL EXAMINATION: On day of discharge; VITAL SIGNS: Blood pressures are 161/75, heart rate of 72, respiration of 18, saturating 92%. CARDIOVASCULAR: S1, S2 normal with irregularly irregular heart rate. LUNGS: Bilateral air entry was equal. No wheezing, no crackles. ABDOMEN: Soft, nontender. No guarding or rebound tenderness. PEG tube is intact. MUSCULOSKELETAL: No calf tenderness. No pedal edema, no joint tenderness, no joint swelling. HOME MEDICATIONS: 1. Clonidine 0.1 mg p.o. q.6 hours. 2. Donepezil 5 mg p.o. at bedtime. 3. Lasix 20 mg p.o. daily. 4. Ipratropium DuoNeb q.i.d. 5. Lactulose 30 grams p.o. t.i.d. 6. Lisinopril 20 mg p.o. daily. 7. Loperamide 2 mg p.o. p.r.n. 8. Omeprazole 40 mg p.o. daily. 9. MiraLax 17 grams p.o. daily. 10. Leflunomide 20 mg tablet daily. 11. Simvastatin 40 mg p.o. daily. DISCHARGE MEDICATION: The patient is continued on metoprolol 25 mg p.o. b.i.d. for her heart rate. DISCHARGE INSTRUCTIONS: Continue activity as tolerated. Advised to follow up with primary care phys ician in 1-2 weeks. Advised to follow up with Cardiology in 2-3 weeks. Continue with modified diet suggested by speech therapy and continue with the tube feeding with a rate as defined by the nutritio nist. Patient was discharged to long-term facility in stable condition. I spent 35 minutes with this patient on the day of discharge.
== END 2017-09-20 15:12 | DRG 280 ==
LOC: ERS 12:53 → IMCU/EMU 14:45 → 2NO 09-19 22:26
PROVIDERS: ADMIT Internal Medicine; ATTEND Internal Medicine
PROC: 0D20XUZ Change Feeding Device in Upper Intestinal Tract, External Approach (ICD-10-PCS; principal; 2017-09-17)
DX: I48.0 Paroxysmal atrial fibrillation (principal); G93.41 Metabolic encephalopathy; I21.A1 Myocardial infarction type 2; I50.32 Chronic diastolic (congestive) heart failure; I69.354 Hemiplegia and hemiparesis following cerebral infarction affecting left non-dominant side; Z43.1 Encounter for attention to gastrostomy; I69.391 Dysphagia following cerebral infarction; R13.12 Dysphagia, oropharyngeal phase; I25.10 Atherosclerotic heart disease of native coronary artery without angina pectoris; M06.9 Rheumatoid arthritis, unspecified; E78.5 Hyperlipidemia, unspecified; E11.9 Type 2 diabetes mellitus without complications; M81.0 Age-related osteoporosis without current pathological fracture; G30.9 Alzheimer's disease, unspecified; F02.80 Dementia in other diseases classified elsewhere, unspecified severity, without behavioral disturbance, psychotic disturbance, mood disturbance, and anxiety; I11.0 Hypertensive heart disease with heart failure; F41.9 Anxiety disorder, unspecified; F32.9 Major depressive disorder, single episode, unspecified; Z66 Do not resuscitate; Z87.891 Personal history of nicotine dependence; Z88.0 Allergy status to penicillin; Z88.2 Allergy status to sulfonamides; Z79.02 Long term (current) use of antithrombotics/antiplatelets; Z79.899 Other long term (current) drug therapy; Z96.653 Presence of artificial knee joint, bilateral
CPT/HCPCS: 36415; 36416; 80048; 80053; 80162; 82553; 82565; 83880; 84443; 84484; 85014; 85018; 85025; 85049; 85610; 85730; 93005; 96361; 96372; 96374; 96376; G8978-GP-CL; G8979-GP-CJ; G8987-GO-CM; G8988-GO-CK; G8996-GN-CJ; G8997-GN-CJ; J1650; J2704; J7050

== ENCOUNTER 2017-09-26 20:32 | Observation (INO) | payer MEDICARE, MEDICAID ==
[2017-09-26] MEDS ORDERED: Lidocaine 1% PF 5 ML VIAL ONE (23:32)
[2017-09-27 02:14] LABS: #Eosinphils 0.1 thou/uL (0.0-0.7); #Lymphocytes 2.3 thou/uL (1.20-3.40); #Monocytes 0.6 thou/uL (0.11-0.59); #Neutrophils 3.2 thou/uL (1.40-6.50); %Basophils 0.8 % (0.0-1.0); %Eosinophils 1.7 % (0.0-10.0); %Lymphocytes 36.5 % (21.0-51.0); Hemoglobin 11.3 g/dL (12.0-16.0); Mean Corpuscular Hemoglobin 27.7 pg (27.0-31.0); Platelet Count 179 thou/uL (130-400); RBC Distribution Width 13.5 % (11.5-14.5); Red Blood Cell (RBC) Count 4.09 mill/uL (4.20-5.40); White Blood Cell (WBC) Count 6.3 thou/uL (4.8-10.8)
[2017-09-27 02:27] LABS: ALT (SGPT) 9 U/L (8-55); AST (SGOT) 20 U/L (5-34); Albumin 3.6 g/dL (3.4-4.8); Alkaline Phosphatase 77 U/L (40-150); Anion Gap 10 mmol/L (10-20); BUN (Urea Nitrogen) 13 mg/dL (9.8-20.1); Bilirubin, Total 0.5 mg/dL (0.2-1.2); Calc. Creatinine Clearance 0 mL/min (70-130); Calcium 9.5 mg/dL (7.8-10.44); Carbon Dioxide 30 mmol/L (23-31); Chloride 102 mmol/L (98-107); Estimated GFR-MDRD 66; Globulin 3.3 g/dL (2.4-3.5); Glucose 102 mg/dL (83-110); Potassium 4.2 mmol/L (3.5-5.1); Protein, Total 6.9 g/dL (6.0-8.3); Sodium 138 mmol/L (136-145)
[2017-09-27 05:01] VITALS: BMI 25.8
[2017-09-27] MEDS: Sodium Chloride 0.9% 1,000 ML IV SCH ×2 (06:34→16:06)
[2017-09-27 08:13] LABS: #Eosinphils 0.1 thou/uL (0.0-0.7); #Monocytes 0.6 thou/uL (0.11-0.59); #Neutrophils 4.2 thou/uL (1.40-6.50); %Basophils 0.5 % (0.0-1.0); %Eosinophils 1.9 % (0.0-10.0); %Lymphocytes 28.5 % (21.0-51.0); %Monocytes 8.5 % (0.0-10.0); %Neutrophils 60.6 % (42.0-75.0); Hemoglobin 10.3 g/dL (12.0-16.0); Mean Corpuscular HGB CONC 31.3 g/dL (32.0-36.0); Mean Corpuscular Hemoglobin 26.3 pg (27.0-31.0); Mean Platelet Volume 10.3 fL (7.4-10.4); Platelet Count 170 thou/uL (130-400); RBC Distribution Width 13.5 % (11.5-14.5); Red Blood Cell (RBC) Count 3.92 mill/uL (4.20-5.40)
[2017-09-27 08:35] LABS: Anion Gap 10 mmol/L (10-20); BUN (Urea Nitrogen) 13 mg/dL (9.8-20.1); Calc. Creatinine Clearance 69 mL/min (70-130); Calcium 9.3 mg/dL (7.8-10.44); Carbon Dioxide 29 mmol/L (23-31); Chloride 103 mmol/L (98-107); Estimated GFR-MDRD 67; Glucose 94 mg/dL (83-110); Potassium 4.2 mmol/L (3.5-5.1); Sodium 138 mmol/L (136-145)
[2017-09-27] MEDS ORDERED: Famotidine/PF 20 mg/2ml Vial SLOW IVP SCH (09:00)
[2017-09-27] MEDS: Heparin 5,000 UNITS/ML VIAL SC SCH ×2 (09:43→16:06)
[2017-09-27] MEDS ORDERED: Ondansetron ODT 4 MG TAB SL PRN (10:28)
[2017-09-27] MEDS ORDERED: PROPOFOL 200 MG/20 ML VIAL ONE (11:01)
[2017-09-27] MEDS ORDERED: Lidocaine 1% PF 5 ML VIAL ONE (11:01)
--- NOTE | 2017-09-27 13:01 | PDOC.PN ---
- Subjective Encounter Start Date: 09/27/17 Encounter Start Time: 13:00 Subjective: pleasantly confused - Objective Resuscitation Status: Resuscitation Status FULL:Full Resuscitation Vital Signs & Weight: Vital Signs (12 hours) Temp Pulse Resp BP Pulse Ox 09/27/17 08:15 98.0 F 68 18 138/61 93 L 09/27/17 06:48 98.0 F 68 18 09/27/17 04:44 98.0 F 68 18 128/60 95 Weight Weight 160 lb 3.2 oz I&O: 09/26/17 09/27/17 09/28/17 06:59 06:59 06:59 Intake Total 75 Balance 75 Result Diagrams: 09/27/17 08:01 09/27/17 08:01 Phys Exam - Physical Examination Neck: no JVD Respiratory: clear to auscultation bilateral Cardiovascular: RRR, no significant murmur Gastrointestinal: soft, non-tender, positive bowel sounds Musculoskeletal: no edema Dx/Plan (1) Dysphagia Code(s): R13.10 - DYSPHAGIA, UNSPECIFIED Status: Acute Qualifiers: Dysphagia type: unspecified Qualified Code(s): R13.10 - Dysphagia, unspecified (2) Dementia Code(s): F03.90 - UNSPECIFIED DEMENTIA WITHOUT BEHAVIORAL DISTURBANCE Status: Chronic Qualifiers: Alzheimer's disease onset: unspecified onset (3) Encounter for attention to gastrostomy Status: Acute - Plan pulled PEG out at [place]. awaiting GI to see. * .
[2017-09-27] MEDS ORDERED: Levofloxacin 500 mg/D5W 100 ml Premix Bag ONE (14:16)
[2017-09-27] MEDS ORDERED: Ondansetron HCl/PF 4 MG/2 ML Vial IVP PRN (14:28)
--- NOTE | 2017-09-27 14:57 | OP ---
DATE OF PROCEDURE: 09/27/2017 PROCEDURE: Esophagogastroduodenoscopy with percutaneous endoscopic gastrostomy tube placement. PREOPERATIVE DIAGNOSIS: Dysphagia. PREOPERATIVE NOTE: Ms. Mckeon pulled out her PEG tube. It could not be replaced with the regular siz e 20-Indonesian replacement gastrostomy tube in the ER. She was therefore admitted for endoscopic [facility] ent. OPERATIVE NOTE: Informed consent was obtained. The patient was sedated with total intravenous anest hesia. The endoscope was advanced easily to the second portion of the duodenum and retroflexion was performed in the stomach. The esophagus was normal. The GE junction was normal. The stomach was no rmal except for the dimple noted at the previous gastrostomy site. The pylorus and first and second portions of the duodenum were normal. A wire was placed through the existing gastrostomy opening and grasped with a snare and pulled out the patient's mouth. A 20-Indonesian gastrostomy tube was then plac ed by the pull-through technique. The external bumper was placed at 5 cm, which was not tight. IMPRESSION: 1. Normal esophagogastroduodenoscopy. 2. A 20-Indonesian percutaneous endoscopic gastrostomy tube placed by the pull-through technique through the existing gastrostomy opening. RECOMMENDATIONS: 1. Okay to use the PEG tube immediately since this went through the existing opening. 2. Okay to discharge home from a GI standpoint. I will sign off. Please call if GI can be of macario tance.
[2017-09-27] MEDS ORDERED: Ondansetron HCl/PF 4 MG/2 ML Vial ONE (15:03)
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
[2017-09-27 15:19] VITALS: TEMP 98.4
[2017-09-27 15:47] VITALS: BP 148/67
--- NOTE | 2017-09-27 17:33 | DIS ---
DATE OF ADMISSION: 09/27/2017 DATE OF DISCHARGE: 09/27/2017 DISCHARGE DISPOSITION: Back to [facility]. PRIMARY CARE PROVIDER: 1. Imani Tejada MD. 2. Valentine Ferguson M.D. HOSPITAL COURSE: Patient transferred to [facility] after she pulled out her PEG feedi ng tube. [facility] Contreras was consulted. The patient w as taken to the operating room where a 20 Ethiopian replacement was passed in the existing orifice and u sing the pull-through technique with esophagogastroduodenoscopy. This was done by Dr. Jose Contreras. He releases the patient to resume feedings immediately and be transferred back to the [facility] and she is being transferred back. Pertinent studies that were done. CBC showed only a mild decreased hemoglobin of 11.3, otherwise nor mal. Complete metabolic profile was normal. FINAL DIAGNOSES: 1. PEG tube malfunction due to patient pulling it out. 2. Dysphagia, post cerebrovascular accident in the past. 3. Severe dementia. 4. Hypertension. FOLLOWUP: The patient is to be followed up by her PCP in 1 week. Resume tube feedings and medicatio ns per tube now.
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
--- NOTE | 2017-10-04 18:28 | EKG ---
Test Reason : Blood Pressure : / mmHG Vent. Rate : 066 BPM Atrial Rate : 066 BPM P-R Int : 150 ms QRS Dur : 068 ms QT Int : 394 ms P-R-T Axes : 090 013 066 degrees QTc Int : 413 ms Sinus rhythm with Premature atrial complexes Otherwise normal ECG Confirmed by RUPINDER DELGADILLO D.O. ([id number]), visual effects editor [place] ([id number]) on 10/04/2017 6:27:19 PM Referred By: MD DELGADILLO Confirmed By:RUPINDER DELGADILLO D.O.
== END 2017-09-27 16:56 ==
LOC: ERS 20:32 → 2SW 09-27 03:00
PROVIDERS: ADMIT Internal Medicine; ATTEND Internal Medicine
PROC: 0DH63UZ Insertion of Feeding Device into Stomach, Percutaneous Approach (ICD-10-PCS; principal; 2017-09-27)
DX: K94.23 Gastrostomy malfunction (principal); I10 Essential (primary) hypertension; E78.5 Hyperlipidemia, unspecified; E11.9 Type 2 diabetes mellitus without complications; F41.9 Anxiety disorder, unspecified; F32.9 Major depressive disorder, single episode, unspecified; I25.10 Atherosclerotic heart disease of native coronary artery without angina pectoris; Z88.0 Allergy status to penicillin; Z88.2 Allergy status to sulfonamides; Z88.8 Allergy status to other drugs, medicaments and biological substances; Z86.73 Personal history of transient ischemic attack (TIA), and cerebral infarction without residual deficits; Z90.710 Acquired absence of both cervix and uterus; Z98.890 Other specified postprocedural states; Z90.89 Acquired absence of other organs; Z79.899 Other long term (current) drug therapy; Z79.891 Long term (current) use of opiate analgesic
CPT/HCPCS: 43246; 51702; 80048; 80053; 85025 ×2; 93005; 96361; 96374; 99285; G0378; 36415; B4087; J1644; J1956; J2001; J2405; J2704; Q0162; S0028

== ENCOUNTER 2017-10-27 14:11 | Outpatient (CLI) | payer MEDICARE, MEDICAID | END 2017-10-27 14:12 | disposition home or self-care (01) | LOC: BICRAD 14:11 | PROVIDERS: ATTEND Family Medicine | DX: R10.2 Pelvic and perineal pain (principal); M54.5 Low back pain; M47.896 Other spondylosis, lumbar region; I70.90 Unspecified atherosclerosis; M16.0 Bilateral primary osteoarthritis of hip; M47.898 Other spondylosis, sacral and sacrococcygeal region; W19.XXXA Unspecified fall, initial encounter | CPT/HCPCS: 72100; 72170 ==